=== PATIENT | female | born 1985 | race Caucasian/White ===

== ENCOUNTER 2017-02-03 05:46 | Emergency (ER) | payer SELFPAY ==
[2017-02-03 05:50] VITALS: BP 116/81; BMI 24.1
--- NOTE | 2017-02-03 06:28 | DR.URIAD ---
HPI - Time Seen Time seen: 06:30 - PCP Primary Care Physician: van - HPI Comment HPI Comment: COUGH IS PRODUCTIVE AND BODY ACHES STATED TODAY. PATIENT IS CONGESTED AND HER HEAD HURTS. SHE IS WEAK AND DRAIN OF ENERGY. HER CONDITION IS GETTING WORSE. - Complaint Chief Complaint Doctors Comments: FEVER, COUGH, CONGESTION BODY ACHES TIMES 3 DAYS. Chief Complaint:: COUGH SINCE THURSDAY, BODY ACHES, HEADACHE - Reviewed Nurses Notes Reviewed: Yes - Source History Provided: Patient - Mode of Arrival Mode of Arrival: Ambulatory - Timing Onset of Chief Complaint: 02/01/17 - Context Recent Treated Infections: None History of Respiratory: None - Quality Quality of Cough: Productive, Yellow Rhinorrhea: None Shortness of Breath: Mild - Associated Signs and Symptoms Other Signs and Symptoms: Cough, Fever, Myalgias, URI PMH - PMH Past Medical History: Yes Past Medical History: Anxiety, Hypertension, Seizures Past Surgical History: Yes Surgical History: Appendectomy, 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, 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, 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 negative: Eye Pain, Discharge ENTM: Nose Discharge, Nose Congestion. negative: Ear Pain, Throat Pain Respiratoy: Productive Cough. negative: Short of Breath, Wheezing, Hemoptysis Cardiovascular: No Symptoms Reported, Chest Pain Gastrointestinal/Abdominal: Nausea. negative: Abdominal Pain Genitourinary: No Symptoms Reported. negative: Dysuria, Frequency, Hematuria Neurological: Headache, Weakness, Dizziness Musculoskeletal: Muscle Pain Integumentary: No Symptoms Reported Hematologic/Lymphatic: No Symptoms Reported Endocrine: No Symptoms Reported Psychiatric: No Symptoms Reported All Other Systems: Reviewed and Negative PE - Vital Signs Vitals: Temperature 100.3 F Pulse Rate 130 Respiratory Rate 18 Blood Pressure [Left Arm] 137/94 Blood Pressure [Right Arm] 120/82 Blood Pressure 116/81 O2 Sat by Pulse Oximetry 97 - General Limitations: No Limitations General Appearance: Alert - Head Head Exam: Normal Inspection - Eyes Eye exam: Normal Appearance - ENT ENT Exam: Normal External Ear Exam External Ear Exam: Normal External Inspection TM/Canal Exam: Bilateral Bulging Mouth Exam: Normal Inspection Throat Exam: Tonsillar Erythema. negative: Tonsillomegaly, Tonsillar Exudate - Neck Neck Exam: Trachea Midline. negative: Tenderness, Meningismus, Lymphadenopathy - Chest Chest Inspection: Symmetric Chest Wall Rise - Respiratory Respiratory Exam: Normal Lung Sounds Bilat Respiratory Exam: Bilateral Clear to Auscultation - Cardiovascular Cardiovascular Exam: Regular Rate, Normal Rhythm, Normal Heart Sounds - Abdominal Exam Abdominal Exam: Normal Bowel Sounds, Soft. negative: Tenderness - Extremeties Extremities Exam: Normal Inspection - Back Back Exam: Normal Inspection - Neurologic Neurological Exam: Alert, Oriented X3 - Psychiatric Psychiatric Exam: Anxious - Skin Skin Exam: Dry MDM - Differential Diagnosis Differential Diagnosis: Influenza A, Otitis media, Streptococcal pharyngitis, Viral pharyngitis, Pneumonia, Sinsusitis, URI Course - Treatment Treatment: SEE REPORT - Education/Counseling Education/Counseling: Patient, Education Educated On: Treatment, Diagnosis, Needs for Follow Up ROR - Labs Reviewed Laboratory: Influenza A (H1N1) PCR Not detected (NOT DETECT) 02/03/17 05:52 Influenza Type A (PCR) Positive (NEGATIVE) A 02/03/17 05:52 Influenza Type B (PCR) Negative (NEGATIVE) 02/03/17 05:52 - XRAY XRAY Interpreted by: Radiologist XRAY Findings: REPORT DISCUSS WITH PATIENT. - Diagnosis Discharge Problem: Influenza, Bronchitis, Myalgia - Discharge Plan Condition: Stable Prescriptions: Acetaminophen/Codeine Tab [TYLENOL w/CODEINE #3 (300 MG/30 MG) *] 1 tab PO Q4- 6H PRN #15 tab PRN Reason: Pain Amoxicillin [Amoxil 875 mg] 875 mg PO BID #20 tab Oseltamivir Phosphate [Tamiflu] 75 mg PO BID #10 cap - Follow ups/Referrals Follow ups/Referrals: NFD,None [Primary Care Provider] - 3 days ZI HSIEH [STAFF PHYSICIAN] - 3 days - Instructions Instructions: Influenza, Adult, Influenza Tests, Acute Bronchitis Additional Instructions: RETURN TO ED IF WORSE.
[2017-02-03] MEDS ORDERED: TORADOL 60 MG VIAL IM ONE (06:29)
[2017-02-03] MEDS ORDERED: TORADOL 60 MG VIAL ONE (06:34)
--- NOTE | 2017-02-03 06:44 | RAD ---
HISTORY: Chest pain Study: Chest one view Comparison: December 02, 2015 Findings: The trachea is midline. The cardiac silhouette is unremarkable. The lungs are clear without focal infiltrate or effusion. The bony thorax is unremarkable. IMPRESSION: 1. No acute cardiopulmonary disease. Reported By:
== END 2017-02-03 08:00 | disposition home or self-care (01) ==
LOC: ER 05:46
DX: J11.1 Influenza due to unidentified influenza virus with other respiratory manifestations (principal); J40 Bronchitis, not specified as acute or chronic; M79.1 Myalgia
CPT/HCPCS: 71010; 87502; 87503; 96372; 99282; J1885

== ENCOUNTER 2017-07-11 10:17 | Emergency (ER) | payer SELFPAY ==
[2017-07-11 10:22] VITALS: BP 113/90; BMI 23.3
[2017-07-11 10:50] LABS: BILIRUBIN,URINE NEGATIVE (NEGATIVE); BLOOD/HEMOGLOBIN,URINE 4+ (NEGATIVE); GLUCOSE, URINE NEGATIVE (NEGATIVE); KETONES,URINE NEGATIVE (NEGATIVE); LEUKOCYTE ESTERASE ,URINE 1+ (NEGATIVE); NITRITES,URINE NEGATIVE (NEGATIVE); PROTEIN,URINE 1+ (NEGATIVE); UROBILINOGEN,URINE NORMAL (NORMAL)
[2017-07-11] MEDS ORDERED: TORADOL 30 MG VIAL IVP ONE (10:50)
[2017-07-11] MEDS ORDERED: TORADOL 30 MG VIAL ONE (10:51)
--- NOTE | 2017-07-11 10:52 | DR.GENAD ---
HPI - PCP Primary Care Physician: NFD - Complaint/Symptoms Chief Complaint Doctors Comments: Patient admits to right flank pain radiating to right inguinal area. Prior history of cholelithiasis. Chief Complaint:: PT C/O RT FLANK PAIN WITH NAUSEA. PT STATES SHE HAS BEEN HAVING DYSURIA. 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 - Family History History of Family Medical Conditions: Yes Family Medical History: [place], Hypertension - Social History Does any household member use tobacco: No Alcohol Use: None Do you use any recreational Drugs:: No Lives With: Family Lives Where: Home - infectious screening In the last 2 months have you had wt loss of >10#?: NO Have you had fever, night sweats or hemotysis?: No Have you traveled outside the country in the last 6 months?: No Isolation: Standard ROS - Review of Systems Eyes: No Symptoms Reported ENTM: No Symptoms Reported Respiratoy: No Symptoms Reported Cardiovascular: No Symptoms Reported Gastrointestinal/Abdominal: No Symptoms Reported Genitourinary: No Symptoms Reported Neurological: No Symptoms Reported Musculoskeletal: Back (right flank pain) Integumentary: No Symptoms Reported Hematologic/Lymphatic: No Symptoms Reported Endocrine: No Symptoms Reported Psychiatric: No Symptoms Reported All Other Systems: Reviewed and Negative PE - Vital Signs Vitals: Temperature 97.7 F Pulse Rate 124 Respiratory Rate 18 Blood Pressure [Left Arm] 137/94 Blood Pressure [Right Arm] 120/82 Blood Pressure 113/90 O2 Sat by Pulse Oximetry 97 - General General Appearance: Alert, In No Apparent Distress - Head Head Exam: Normal Inspection, Atraumatic - Eyes Eye exam: Normal Appearance, PERRL, EOMI - ENT ENT Exam: Normal Exam External Ear Exam: Normal External Inspection TM/Canal Exam: Bilateral Normal Nose Exam: Normal Nose Exam Mouth Exam: Normal Inspection MDM - Differential Diagnosis Differential Diagnosis: cholelithiasis, ovarian cyst Course - Reevaluation 1st: Improved ROR - Labs Reviewed Result Diagrams: 07/11/17 11:00 07/11/17 11:00 Laboratory: WBC 13.0 X10^3/uL (3.6-10.0) H 07/11/17 11:00 RBC 4.75 X10^6/uL (3.5-5.4) 07/11/17 11:00 Hgb 13.0 g/dL (12.0-16.0) 07/11/17 11:00 Hct 38.4 % (36.0-47.0) 07/11/17 11:00 MCV 81.0 fL (80.0-100.0) 07/11/17 11:00 MCH 27.4 pg (27.0-34.0) 07/11/17 11:00 MCHC 33.8 g/dL (33.0-35.0) 07/11/17 11:00 RDW 16.1 % (11.6-16.5) 07/11/17 11:00 Plt Count 431 X10^3/uL (150.0-450.0) 07/11/17 11:00 Plt Count Comment Adequate (ADEQUATE) 07/11/17 11:00 MPV 8.8 fL (7.4-11.0) 07/11/17 11:00 Neut % 77.6 % (42.0-75.0) H 07/11/17 11:00 Lymph % 16.0 % (21.0-51.0) L 07/11/17 11:00 Grimes % 4.4 % (0.0-13.0) 07/11/17 11:00 Eos % 0.6 % (0.9-2.9) L 07/11/17 11:00 Baso % 1.4 % (0.2-1.0) H 07/11/17 11:00 Neut # 10.1 x10^3/uL (2.2-4.8) H 07/11/17 11:00 Lymph # 2.1 X10^3/uL (1.3-2.9) 07/11/17 11:00 Grimes # 0.6 x10^3/uL (0.3-0.8) 07/11/17 11:00 Eos # 0.1 x10^3/uL (0.0-0.2) 07/11/17 11:00 Baso # 0.2 X10^3/uL (0.0-0.1) H 07/11/17 11:00 Absolute Nucleated RBC 0.0 /100WBC 07/11/17 11:00 Total Counted 100 07/11/17 11:00 Neutrophils % (Manual) 78 % (39-76) H 07/11/17 11:00 Lymphocytes % (Manual) 20 % (13-43) 07/11/17 11:00 Monocytes % (Manual) 1 % (4-9) L 07/11/17 11:00 Plt Morphology Comment Normal (NORMAL) 07/11/17 11:00 RBC Morphology Normal (NORMAL) 07/11/17 11:00 Sodium 140 mmol/L (136-145) 07/11/17 11:00 Corrected Sodium 140 mmol/L (136-145) 07/11/17 11:00 Potassium 3.9 mmol/L (3.5-5.1) 07/11/17 11:00 Chloride 107 mmol/L (98-107) 07/11/17 11:00 Carbon Dioxide 20.9 mmol/L (21-32) L 07/11/17 11:00 BUN 16 mg/dL (7-18) 07/11/17 11:00 Creatinine 0.98 mg/dL (0.55-1.02) 07/11/17 11:00 Est GFR (MDRD) Af Amer > 60 (>60) 07/11/17 11:00 Est GFR (MDRD) Non-Af > 60 (>60) 07/11/17 11:00 Glucose 120 mg/dL (65-99) H 07/11/17 11:00 Calcium 9.0 mg/dL (8.5-10.1) 07/11/17 11:00 Specimen Type Clean catch urine 07/11/17 10:40 Urine Color Yellow (YELLOW) 07/11/17 10:40 Urine Appearance Slightly hazy (CLEAR) 07/11/17 10:40 Urine pH 6.0 (5.0 - 8.0) 07/11/17 10:40 Ur Specific Newell 1.015 (1.000-1.030) 07/11/17 10:40 Urine Protein 1+ (NEGATIVE) 07/11/17 10:40 Urine Glucose (UA) Negative (NEGATIVE) 07/11/17 10:40 Urine Ketones Negative (NEGATIVE) 07/11/17 10:40 Urine Occult Blood 4+ (NEGATIVE) 07/11/17 10:40 Urine Nitrite Negative (NEGATIVE) 07/11/17 10:40 Urine Bilirubin Negative (NEGATIVE) 07/11/17 10:40 Urine Urobilinogen Normal (NORMAL) 07/11/17 10:40 Ur Leukocyte Esterase 1+ (NEGATIVE) 07/11/17 10:40 Urine RBC 1 - 5 /HPF (NEGATIVE) 07/11/17 10:40 Urine WBC Rare /HPF (NEGATIVE) 07/11/17 10:40 Ur Squamous Epith Cells Moderate /HPF (NEGATIVE) 07/11/17 10:40 Urine Bacteria Negative /HPF (NEGATIVE) 07/11/17 10:40 Ur Culture Indicated? No/not indicated 07/11/17 10:40 - XRAY XRAY Interpreted by: Radiologist (CT Abd/pelv: No evidence of acute abdominal or pelvic abnormality. The gallbladder surgically absent. Surgical clips are noted in the gallbladder fosse. The liver spleen,pancreas, kidneys and adrenal glands are normal in appearance. No significian mesenteric lymphadenopathy or inflammatory strainding is appreciated. The stomach is normal in appearance. The small bowel is normal in appearance, withoutevidence of bowel wall thickening or small bowel obstruction. The termial ileum and cecum are normal. The appendix is surgically abswent. The asending, transverse and descending colon are within normal limits. The sigmoid colon and the rectum are within normal limits. The urinary bladder is normal. No abnormal fluid collections are identified in the pelivs. Impression: No evidence of acute abdominal or pelvic abnormality.) - Diagnosis Discharge Problem: Flank pain, acute - Discharge Plan Condition: Stable - Follow ups/Referrals Follow ups/Referrals: NFD,None [Primary Care Provider] - 3 days - Instructions
[2017-07-11] MEDS ORDERED: NS 1000 ML 1,000 ML ONE (10:54)
[2017-07-11] MEDS ORDERED: NS 1000 ML 1,000 ML IV SCH (11:00)
[2017-07-11 11:01] LABS: APPEARANCE,URINE SLIGHTLY HAZY (CLEAR); COLOR,URINE YELLOW (YELLOW)
[2017-07-11 11:02] LABS: BACTERIA,URINE NEGATIVE /HPF (NEGATIVE); SQUAMOUS EPITHELIAL CELL,UR MODERATE /HPF (NEGATIVE)
[2017-07-11 11:17] LABS: BASOPHILS # (AUTO) 0.2 X10^3/uL (0.0-0.1); BASOPHILS % (AUTO) 1.4 % (0.2-1.0); EOSINOPHILS # (AUTO) 0.1 x10^3/uL (0.0-0.2); EOSINOPHILS % (AUTO) 0.6 % (0.9-2.9); HEMATOCRIT 38.4 % (36.0-47.0); LYMPHOCYTES # (AUTO) 2.1 X10^3/uL (1.3-2.9); MEAN CORPUSCULAR HEMOGLOBIN 27.4 pg (27.0-34.0); MEAN CORPUSCULAR HGB CONC 33.8 g/dL (33.0-35.0); MEAN PLATELET VOLUME 8.8 fL (7.4-11.0); MONOCYTES # (AUTO) 0.6 x10^3/uL (0.3-0.8); MONOCYTES % (AUTO) 4.4 % (0.0-13.0); NEUTROPHILS # (AUTO) 10.1 x10^3/uL (2.2-4.8); NEUTROPHILS % (AUTO) 77.6 % (42.0-75.0); PLATELET COUNT 431 X10^3/uL (150.0-450.0); RED BLOOD COUNT 4.75 X10^6/uL (3.5-5.4); RED CELL DISTRIBUTION WIDTH 16.1 % (11.6-16.5)
[2017-07-11 11:23] LABS: BLOOD UREA NITROGEN 16 mg/dL (7-18); CARBON DIOXIDE 20.9 mmol/L (21-32); CHLORIDE 107 mmol/L (98-107); COR NA(FOR HYPERGLY) 140 mmol/L (136-145); CREATININE 0.98 mg/dL (0.55-1.02); SODIUM 140 mmol/L (136-145); eGFR BLACK RACES > 60 (>60); eGFR NON BLACK RACES > 60 (>60)
[2017-07-11 11:30] LABS: PLATELET MORPHOLOGY COMMENT NORMAL (NORMAL)
[2017-07-11] MEDS ORDERED: MORPHINE SULFATE INJ 4 MG IVP ONE (11:32)
[2017-07-11] MEDS ORDERED: ZOFRAN INJ 4 MG VIAL IVP ONE (11:32)
[2017-07-11] MEDS ORDERED: ZOFRAN INJ 4 MG VIAL ONE (11:33)
[2017-07-11] MEDS ORDERED: MORPHINE SULFATE INJ 2 MG INJ ONE ×2 (11:34→11:45)
--- NOTE | 2017-07-11 12:08 | CT ---
STUDY: CT ABDOMEN AND PELVIS WITHOUT IV AND ORAL CONTRAST HISTORY: Right flank pain. Nausea. Comparison: CT abdomen pelvis from November 18, 2014 Technique: Multiple axial images of the abdomen and pelvis were obtained from the lung bases to the pubic symphysis without the administration of IV contrast. Findings: The visualized portions of the lung bases are unremarkable. CT abdomen: The gallbladder surgically absent. Surgical clips are noted in the gallbladder fossa . Th e liver, spleen, pancreas, kidneys, and adrenal glands are normal in appearance. No significant mesen teric lymphadenopathy or inflammatory stranding is appreciated. The stomach is normal in appearance. The small bowel is normal in appearance, without evidence of bow el wall thickening or small bowel obstruction. The terminal ileum and cecum are normal. The appendix is surgically absent. The ascending, transverse and descending colon are within normal limits. CT pelvis: The sigmoid colon and the rectum are within normal limits. The urinary bladder is normal. No abnormal fluid collections are identified in the pelvis. There is no evidence of acute osseous abnormality. IMPRESSION: 1. No evidence of acute abdominal or pelvic abnormality. Reported By:
== END 2017-07-11 12:42 | disposition home or self-care (01) ==
LOC: ER 10:27
DX: R10.84 Generalized abdominal pain (principal)
CPT/HCPCS: 36415; 74176; 80048; 81001; 85025; 96365; 96367; 96374; 96375; 99283; A4222; J1885; J2270; J2405

== ENCOUNTER 2018-01-13 10:53 | Emergency (ER) | payer OTHER ==
[2018-01-13 10:58] VITALS: BP 163/104; BMI 24.0
[2018-01-13] MEDS ORDERED: DECADRON INJ IM ONE (11:48)
[2018-01-13] MEDS ORDERED: TORADOL 60 MG VIAL IM ONE (11:48)
--- NOTE | 2018-01-13 11:48 | DR.TOOTHHP ---
HPI - Time Seen Time seen: 11:45 - Primary Care Physician Primary Care Physician: KI - HPI Comment HPI Comment: WORSE THIS AM. - Complaints Chief Complaint Doctors Comments: POST TOOTH EXTRACTION. GUM SWOLLEN AND HURTING. LOW GRADE FEVER. Chief Complaint:: PT. STATES SHE HAD A TOOTH PULLED YESTERDAY AT THE [facility] AND THEY BROKE HER TOOTH OFF THAT WAS NEXT THE TOOTH THAT WAS PULLED. PT. C/O SEVERE PAIN TO AREA. TOOTH IS ON THE LOWER LEFT, BOTTOM SIDE. 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, 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, 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 - Family History History of Family Medical Conditions: Yes Family Medical History: [place], Hypertension - Social History Does patient currently use any type of tobacco product: No Have you used tobacco products in the last 12 months: No Type of Tobacco Use: None Does any household member use tobacco: No Alcohol Use: None Do you use any recreational Drugs:: No Lives With: Family Lives Where: Home - infectious screening In the last 2 months have you had wt loss of >10#?: NO Have you had fever, night sweats or hemotysis?: No Have you traveled outside the country in the last 6 months?: No Isolation: Standard ROS - Review of Systems Constitutional: Fever Eyes: No Symptoms Reported ENTM: Mouth Pain (GUM SWELLING AND PAIN.) Respiratoy: No Symptoms Reported Cardiovascular: No Symptoms Reported Gastrointestinal/Abdominal: No Symptoms Reported Genitourinary: No Symptoms Reported Neurological: No Symptoms Reported Musculoskeletal: No Symptoms Reported Integumentary: No Symptoms Reported Hematologic/Lymphatic: No Symptoms Reported Endocrine: No Symptoms Reported All Other Systems: Reviewed and Negative PE - Vital Signs Vitals: Temperature 99.5 F Pulse Rate 143 Respiratory Rate 22 Blood Pressure [Left Arm] 137/94 Blood Pressure [Right Arm] 120/82 Blood Pressure 163/104 O2 Sat by Pulse Oximetry 98 - General Limitations: No Limitations General Appearance: Alert - Head Head Exam: Normal Inspection - Eyes Eye exam: Normal Appearance - ENT ENT Exam: Normal External Ear Exam External Ear Exam: Normal External Inspection TM/Canal Exam: Bilateral Normal Nose Exam: Normal Nose Exam Mouth Exam: negative: Trismus Teeth Exam: Dental Caries, Dental Tenderness # (LEFT LOWER 1ST MOLAR WITH SWOLLEN TENDER GUM.) - Neck Neck Exam: Trachea Midline - Chest Chest Inspection: Symmetric Chest Wall Rise - Respiratory Respiratory Exam: Normal Lung Sounds Bilat Respiratory Exam: Bilateral Clear to Auscultation - Cardiovascular Cardiovascular Exam: Regular Rate, Normal Rhythm, Normal Heart Sounds - Abdominal Exam Abdominal Exam: Normal Inspection - Extremities Extremities Exam: Normal Inspection - Back Back Exam: Normal Inspection - Neurologic Neurological Exam: Alert, Oriented X3 - Psychiatric Psychiatric Exam: Normal Affect, Normal Mood - Skin Skin Exam: Erythema MDM - Differential diagnosis Differential Diagnosis: Other (DENTAL P[AIN, GINGIVITIS) Course - Treatment Treatment: SEE ORDERS. - Education/Counseling Education/Counseling: Patient, Education Educated On: Treatment, Diagnosis, Needs for Follow Up - Diagnosis Discharge Problem: Toothache, Gingivitis - Discharge Plan Disposition: 01 HOME, SELF-CARE Condition: Stable Prescriptions: Amoxicillin [Amoxil 875 mg] 875 mg PO Q12H #20 tab Ibuprofen [MOTRIN TAB 800 MG *] 800 mg PO Q8H PRN #30 tab PRN Reason: Pain/Inflammation Prednisone [Prednisone Tab 10 mg] 10 mg PO QAM #10 tab - Follow ups/Referrals Follow ups/Referrals: NFD,None [Primary Care Provider] - 1 day - Instructions Instructions: Gingivitis, [id number], Gingivitis Additional Instructions: RETURN TO ED IF WORSE. SEE DENTIST THAT DID YOUR EXTRACYION TODAY OR SOON POSSIBLE.
[2018-01-13] MEDS ORDERED: DECADRON JET NEB (RESP USE) NEB ONE (11:52)
[2018-01-13] MEDS ORDERED: TORADOL 60 MG VIAL ONE (11:52)
== END 2018-01-13 12:15 | disposition home or self-care (01) ==
LOC: ER 11:32
DX: K05.10 Chronic gingivitis, plaque induced (principal); K08.89 Other specified disorders of teeth and supporting structures
CPT/HCPCS: 96372; 99282; J1885

== ENCOUNTER 2018-02-05 08:38 | Emergency (ER) | payer OTHER ==
[2018-02-05 08:44] VITALS: BP 125/95; BMI 24.1
[2018-02-05] MEDS ORDERED: ROBITUSSIN AC PO ONE (09:07)
[2018-02-05] MEDS ORDERED: ROBITUSSIN AC ONE (09:14)
--- NOTE | 2018-02-05 09:20 | DR.GENAD ---
HPI - PCP Primary Care Physician: nfd - Complaint/Symptoms Chief Complaint Doctors Comments: As noted in nurses' notes + chest and nasal congestion, coughing, sneezing and runny nose. Chief Complaint:: Patient c/o generalized pain with c/c/c and sore throat since Thursday. 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 - Family History History of Family Medical Conditions: Yes Family Medical History: [place], Hypertension - Social History Does patient currently use any type of tobacco product: No Have you used tobacco products in the last 12 months: No Type of Tobacco Use: None Does any household member use tobacco: No Alcohol Use: None Do you use any recreational Drugs:: No Lives With: Family Lives Where: Home - infectious screening In the last 2 months have you had wt loss of >10#?: NO Have you had fever, night sweats or hemotysis?: No Have you traveled outside the country in the last 6 months?: No Isolation: Standard ROS - Review of Systems Constitutional: Fever Eyes: No Symptoms Reported ENTM: Ear Discharge, Nose Discharge, Nose Congestion Respiratoy: Productive Cough, Non-Productive Cough Cardiovascular: No Symptoms Reported Gastrointestinal/Abdominal: No Symptoms Reported Genitourinary: No Symptoms Reported Neurological: No Symptoms Reported Musculoskeletal: No Symptoms Reported Integumentary: No Symptoms Reported Hematologic/Lymphatic: No Symptoms Reported Endocrine: No Symptoms Reported Psychiatric: No Symptoms Reported All Other Systems: Reviewed and Negative PE - Vital Signs Vitals: Temperature 97.8 F Pulse Rate 130 Respiratory Rate 18 Blood Pressure [Left Arm] 137/94 Blood Pressure [Right Arm] 120/82 Blood Pressure 125/95 O2 Sat by Pulse Oximetry 100 - General Limitations: No Limitations General Appearance: Alert, In No Apparent Distress - Head Head Exam: Normal Inspection - Eyes Eye exam: Normal Appearance - ENT ENT Exam: Normal Exam - Chest Chest Inspection: Normal Inspection - Respiratory Respiratory Exam: Normal Lung Sounds Bilat - Cardiovascular Cardiovascular Exam: Regular Rate, Normal Rhythm, +S1, +S2 - Abdominal Exam Abdominal Exam: Normal Inspection, Normal Bowel Sounds, Soft - Extremities Extremities Exam: Normal Inspection - Back Back Exam: Normal Inspection - Neurologic Neurological Exam: Alert, Oriented X3 - Psychiatric Psychiatric Exam: Normal Affect, Normal Mood - Skin Skin Exam: Warm, Dry, Intact, Normal Color ROR - XRAY XRAY Interpreted by: Self (CXR: NAD noted) - Diagnosis Discharge Problem: URI (upper respiratory infection) - Discharge Plan Disposition: HOME, SELF-CARE Condition: Stable - Follow ups/Referrals Follow ups/Referrals: NFD,None [Primary Care Provider] - 3 days - Instructions Instructions: Upper Respiratory Infection, Adult, [id number]
--- NOTE | 2018-02-05 09:42 | RAD ---
HISTORY: Cough, fever Study: Chest PA and lateral Comparison: 02/03/2017 Findings: The heart is within normal limits in size. The milton are normal. The lungs are well inflated and free of acute alveolar infiltrates. No pleural effusions are identified. The bony thorax is unremarkable. IMPRESSION: No significant abnormality identified Reported By:
[2018-02-05] MEDS ORDERED: ALLEGRA PO SCH (10:00)
== END 2018-02-05 10:12 | disposition home or self-care (01) ==
LOC: ER 08:47
DX: J06.9 Acute upper respiratory infection, unspecified (principal)
CPT/HCPCS: 71046; 99282

== ENCOUNTER 2018-02-17 13:23 | Emergency (ER) | payer OTHER ==
[2018-02-17 13:30] VITALS: BP 120/75; BMI 25.0
[2018-02-17 13:49] LABS: BILIRUBIN,URINE NEGATIVE (NEGATIVE); BLOOD/HEMOGLOBIN,URINE 4+ (NEGATIVE); GLUCOSE, URINE NEGATIVE (NEGATIVE); KETONES,URINE NEGATIVE (NEGATIVE); LEUKOCYTE ESTERASE ,URINE NEGATIVE (NEGATIVE); NITRITES,URINE NEGATIVE (NEGATIVE); PH,URINE 6.5 (5.0 - 8.0); PROTEIN,URINE NEGATIVE (NEGATIVE); UROBILINOGEN,URINE NORMAL (NORMAL)
[2018-02-17 13:55] LABS: APPEARANCE,URINE CLEAR (CLEAR); COLOR,URINE YELLOW (YELLOW)
[2018-02-17 13:58] LABS: BACTERIA,URINE NEGATIVE /HPF (NEGATIVE); SQUAMOUS EPITHELIAL CELL,UR FEW /HPF (NEGATIVE)
--- NOTE | 2018-02-17 15:47 | ED.ABDFE ---
HPI - Time seen Time seen: 16:15 - PCP Primary Care Physician: HELGA - HPI Comment HPI Comment: NO FEVER, DYSURIA OR DIARRHEA. RT FLANK AND BACK PAIN ALSO. ABDOMINAL PAIN RLQ. - Complaint Chief Complaint Doctors Comments: ABDOMINAL PAIN WITH NAUSEA NOTED TODAY. Chief Complaint:: STMACH PAIN, NAUSEA - Nurses notes reviewed Nurses Notes Review: Yes - Source History Provided: Patient - Mode of arrival Mode of Arrival: Ambulatory - Timing Onset of Chief Complaint: 02/17/18 Came on: Suddenly - Duration Duration: Hours - Location Location: [facility] - Severity Severity: Moderate - Quality Quality: Sharp - Context Onset: Suddenly History of: None - Modifying Worsening Factors: Nothing Improving Factors: Nothing - Associated signs and symptoms Associated Signs and Symptoms: Nausea PMH - PMH Past Medical History: No Past Medical History: Anxiety, Hypertension, Seizures Past Surgical History: Yes Surgical History: Appendectomy, , 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 - Family History History of Family Medical Conditions: No Family Medical History: NM, Hypertension - Social History Does any household member use tobacco: No Alcohol Use: None Do you use any recreational Drugs:: No Lives With: Friend Lives Where: Home - infectious screening In the last 2 months have you had wt loss of >10#?: NO Have you had fever, night sweats or hemotysis?: No Have you traveled outside the country in the last 6 months?: No Isolation: Standard ROS - Review of Systems Constitutional: No Symptoms Reported Eyes: No Symptoms Reported ENTM: No Symptoms Reported Respiratoy: No Symptoms Reported Cardiovascular: No Symptoms Reported Gastrointestinal/Abdominal: Abdominal Pain, Nausea Genitourinary: No Symptoms Reported. negative: Dysuria, Frequency, Hematuria Neurological: No Symptoms Reported Musculoskeletal: Back Pain, Back Integumentary: No Symptoms Reported Hematologic/Lymphatic: No Symptoms Reported Endocrine: No Symptoms Reported All Other Systems: Reviewed and Negative PE - Vital Signs Vitals: Temperature 99.7 F Pulse Rate 122 Respiratory Rate 18 Blood Pressure [Left Arm] 137/94 Blood Pressure [Right Arm] 120/82 Blood Pressure 120/75 O2 Sat by Pulse Oximetry 99 - General Limitations: No Limitations General Appearance: Alert - Head Head Exam: Normal Inspection - Eyes Eye exam: Normal Appearance - ENT ENT Exam: Normal External Ear Exam - Neck Neck Exam: Normal Inspection - Chest Chest Inspection: Symmetric Chest Wall Rise - Respiratory Respiratory Exam: Normal Lung Sounds Bilat Respiratory Exam: Bilateral Clear to Auscultation - Cardiovascular Cardiovascular Exam: Regular Rate, Normal Rhythm, Normal Heart Sounds - Abdominal Exam Abdominal Exam: Normal Bowel Sounds, Soft, Tenderness Abdominal Tenderness: RLQ - Rectal Rectal Exam: Deferred - Back Back Exam: (R) CVA Tenderness - Extremeties Extremities Exam: Normal Inspection - External Exam: Female: Deferred : Speculum Exam (Female): Deferred : Bimanual Exam (female): Deferred - Neurologic Neurological Exam: Alert, Oriented X3 - Psychiatric Psychiatric Exam: Normal Affect, Normal Mood - Skin Skin Exam: Normal Color MDM - Differential Diagnosis Differential Diagnosis- Considerations may include:: Appendicitis, Bowel Obstruction, Cholelethiasis, Diverticular disease, Ovarian cyst/torsion, Pancreatitis, PID, Urinary tract infection, Urolithiasis Course - Treatment Treatment: SEE ORDERS. - Education/Counseling Education/Counseling: Patient, Family, Education Educated On: Diagnosis, Needs for Follow Up ROR - Labs Reviewed Laboratory Results Reviewed?: Yes Result Diagrams: 02/17/18 16:56 02/17/18 16:56 Laboratory: WBC 9.5 X10^3/uL (3.6-10.0) 02/17/18 16:56 RBC 5.15 X10^6/uL (3.5-5.4) 02/17/18 16:56 Hgb 10.0 g/dL (12.0-16.0) L 02/17/18 16:56 Hct 33.4 % (36.0-47.0) L 02/17/18 16:56 MCV 64.9 fL (80.0-100.0) L 02/17/18 16:56 MCH 19.5 pg (27.0-34.0) L 02/17/18 16:56 MCHC 30.0 g/dL (33.0-35.0) L 02/17/18 16:56 RDW 17.9 % (11.6-16.5) H 02/17/18 16:56 Plt Count 513 X10^3/uL (150.0-450.0) H 02/17/18 16:56 Plt Count Comment Increased (ADEQUATE) A 02/17/18 16:56 MPV 9.8 fL (7.4-11.0) 02/17/18 16:56 Neut % (Auto) 60.2 % (42.0-75.0) 02/17/18 16:56 Lymph % (Auto) 31.2 % (21.0-51.0) 02/17/18 16:56 [place] % (Auto) 5.9 % (0.0-13.0) 02/17/18 16:56 Eos % (Auto) 1.3 % (0.9-2.9) 02/17/18 16:56 Baso % (Auto) 1.4 % (0.2-1.0) H 02/17/18 16:56 Neut # (Auto) 5.7 x10^3/uL (2.2-4.8) H 02/17/18 16:56 Lymph # (Auto) 3.0 X10^3/uL (1.3-2.9) H 02/17/18 16:56 [place] # (Auto) 0.6 x10^3/uL (0.3-0.8) 02/17/18 16:56 Eos # (Auto) 0.1 x10^3/uL (0.0-0.2) 02/17/18 16:56 Baso # (Auto) 0.1 X10^3/uL (0.0-0.1) 02/17/18 16:56 Absolute Nucleated RBC 0.0 /100WBC 02/17/18 16:56 Plt Morphology Comment Normal (NORMAL) 02/17/18 16:56 RBC Morphology Abnormal (NORMAL) A 02/17/18 16:56 Hypochromasia 3+ A 02/17/18 16:56 Anisocytosis Slight A 02/17/18 16:56 Microcytosis 2+ A 02/17/18 16:56 Sodium 139 mmol/L (136-145) 02/17/18 16:56 Corrected Sodium TNP 02/17/18 16:56 Potassium 4.1 mmol/L (3.5-5.1) 02/17/18 16:56 Chloride 104 mmol/L (98-107) 02/17/18 16:56 Carbon Dioxide 24.5 mmol/L (21-32) 02/17/18 16:56 BUN 12 mg/dL (7-18) 02/17/18 16:56 Creatinine 0.82 mg/dL (0.55-1.02) 02/17/18 16:56 Est GFR (MDRD) Af Amer > 60 (>60) 02/17/18 16:56 Est GFR (MDRD) Non-Af > 60 (>60) 02/17/18 16:56 Glucose 88 mg/dL (65-99) 02/17/18 16:56 Calcium 8.7 mg/dL (8.5-10.1) 02/17/18 16:56 Corrected Calcium TNP 02/17/18 16:56 Total Bilirubin 0.20 mg/dL (0.2-1.0) 02/17/18 16:56 AST 39 Units/L (15-37) H 02/17/18 16:56 ALT 40 Units/L (12-78) 02/17/18 16:56 Alkaline Phosphatase 86 Units/L (46-116) 02/17/18 16:56 Total Protein 8.3 g/dL (6.4-8.2) H 02/17/18 16:56 Albumin 3.8 g/dL (3.4-5.0) 02/17/18 16:56 Globulin 4.5 g/dL (2.5-4.5) 02/17/18 16:56 Albumin/Globulin Ratio 0.8 Ratio (1.1-2.1) L 02/17/18 16:56 Amylase 64 Units/L (25-115) 02/17/18 16:56 Lipase 169 Units/L (73-393) 02/17/18 16:56 HCG, Qual Negative <10 mIU/mL 02/17/18 16:56 Specimen Type Clean catch urine 02/17/18 13:42 Urine Color Yellow (YELLOW) 02/17/18 13:42 Urine Appearance Clear (CLEAR) 02/17/18 13:42 Urine pH 6.5 (5.0 - 8.0) 02/17/18 13:42 Ur Specific [place] 1.015 (1.000-1.030) 02/17/18 13:42 Urine Protein Negative (NEGATIVE) 02/17/18 13:42 Urine Glucose (UA) Negative (NEGATIVE) 02/17/18 13:42 Urine Ketones Negative (NEGATIVE) 02/17/18 13:42 Urine Occult Blood 4+ (NEGATIVE) 02/17/18 13:42 Urine Nitrite Negative (NEGATIVE) 02/17/18 13:42 Urine Bilirubin Negative (NEGATIVE) 02/17/18 13:42 Urine Urobilinogen Normal (NORMAL) 02/17/18 13:42 Ur Leukocyte Esterase Negative (NEGATIVE) 02/17/18 13:42 Urine RBC 3-5 /HPF (NONE SEEN) 02/17/18 13:42 Urine WBC 0-2 /HPF (NONE SEEN) 02/17/18 13:42 Ur Squamous Epith Cells Few /HPF (NEGATIVE) 02/17/18 13:42 Urine Bacteria Negative /HPF (NEGATIVE) 02/17/18 13:42 Ur Culture Indicated? No/not indicated 02/17/18 13:42 - XRAY XRAY Interpreted by: Radiologist XRAY Findings: REPORT DISCUSS WITH PATIENT. - Diagnosis Discharge Problem: Abdominal pain Qualifiers: Abdominal location: right lower quadrant Qualified Code(s): R10.31 - Right lower quadrant pain Back pain Qualifiers: Back pain location: low back pain Chronicity: acute Back pain laterality: bilateral Sciatica presence: without sciatica Qualified Code(s): M54.5 - Low back pain Ovarian cyst Qualifiers: Laterality: right Qualified Code(s): N83.201 - Unspecified ovarian cyst, right side - Discharge Plan Disposition: 01 HOME, SELF-CARE Condition: Stable Prescriptions: Ketorolac Tromethamine [Toradol Tab] 10 mg PO Q8H PRN #15 tab PRN Reason: Pain - Follow ups/Referrals Follow ups/Referrals: NFD,None [Primary Care Provider] - 3 days - Instructions Instructions: Abdominal Pain, Adult, [id number], Back Pain, Adult, Easy-to- Read Additional Instructions: RETURN TO ED IF WORSE. SEE ACCOUNT EXECUTIVE TRAINEE IN AM.
[2018-02-17] MEDS ORDERED: TORADOL 60 MG VIAL IM ONE (16:24)
[2018-02-17] MEDS ORDERED: ZOFRAN INJ 4 MG VIAL IM ONE (16:24)
[2018-02-17] MEDS ORDERED: TORADOL 60 MG VIAL ONE (16:28)
[2018-02-17 17:11] LABS: SERUM PREGNANCY TEST, QUAL NEGATIVE <10 mIU/mL
--- NOTE | 2018-02-17 17:57 | CT ---
CT OF THE ABDOMEN AND PELVIS WITHOUT CONTRAST HISTORY: Right flank pain Comparison: 11/18/2014, 07/11/2017 Technique: Multiple axial images of the abdomen and pelvis were obtained from the lung bases to the pubic symphy sis without the administration of IV contrast. Dose reduction techniques including Automated Exposur e Control (AEC) and adjustment of mA and kV were utlized. Findings: The heart is normal in size. There is no pericardial effusion. Lung bases are clear without focal con solidation, pleural effusion or pneumothorax. The sensitivity for focal lesion detection within the solid abdominal viscera is diminished without t he use of IV contrast. Liver and spleen are normal in size, and contour. No focal lesions. No ductal dilitation. Gallbladder absent. The pancreas is unremarkable. Adrenal glands are normal. Kidneys are normal in contour witho ut hydronephrosis or nephrolithiasis. No bowel obstruction or inflammation. No abnormal appearing mesenteric or retroperitoneal lymph node s. No free fluid or fluid collections. The bladder is normal in appearance. Uterus is present. 3 cm right ovarian cyst, previously 2.3 cm. N o free fluid or abnormal pelvic lymph nodes. No aggressive osseous lesions. IMPRESSION: 1. No source of patient's right flank pain is identified on this examination. 2. Enlarging right ovarian cyst. This could be evaluated by ultrasound on a nonemergent outpatient [facility]. Reported By:
[2018-02-17] MEDS ORDERED: DEMEROL INJ IM ONE (18:18)
[2018-02-17] MEDS ORDERED: DEMEROL INJ ONE (18:21)
[2018-02-17 18:22] LABS: ALANINE AMINOTRANSFERASE 40 Units/L (12-78); ALBUMIN 3.8 g/dL (3.4-5.0); ALKALINE PHOSPHATASE 86 Units/L (46-116); AMYLASE 64 Units/L (25-115); ASPARTATE AMINO TRANSFERASE 39 Units/L (15-37); BASOPHILS # (AUTO) 0.1 X10^3/uL (0.0-0.1); BASOPHILS % (AUTO) 1.4 % (0.2-1.0); BLOOD UREA NITROGEN 12 mg/dL (7-18); CALCIUM 8.7 mg/dL (8.5-10.1); CARBON DIOXIDE 24.5 mmol/L (21-32); CHLORIDE 104 mmol/L (98-107); CREATININE 0.82 mg/dL (0.55-1.02); EOSINOPHILS # (AUTO) 0.1 x10^3/uL (0.0-0.2); EOSINOPHILS % (AUTO) 1.3 % (0.9-2.9); HEMATOCRIT 33.4 % (36.0-47.0); LIPASE 169 Units/L (73-393); LYMPHOCYTES % (AUTO) 31.2 % (21.0-51.0); MEAN CORPUSCULAR HEMOGLOBIN 19.5 pg (27.0-34.0); MEAN CORPUSCULAR VOLUME 64.9 fL (80.0-100.0); MEAN PLATELET VOLUME 9.8 fL (7.4-11.0); MONOCYTES # (AUTO) 0.6 x10^3/uL (0.3-0.8); MONOCYTES % (AUTO) 5.9 % (0.0-13.0); NEUTROPHILS # (AUTO) 5.7 x10^3/uL (2.2-4.8); NEUTROPHILS % (AUTO) 60.2 % (42.0-75.0); PLATELET COUNT 513 X10^3/uL (150.0-450.0); RED BLOOD COUNT 5.15 X10^6/uL (3.5-5.4); RED CELL DISTRIBUTION WIDTH 17.9 % (11.6-16.5); SODIUM 139 mmol/L (136-145); TOTAL PROTEIN 8.3 g/dL (6.4-8.2); WHITE BLOOD COUNT 9.5 X10^3/uL (3.6-10.0); eGFR BLACK RACES > 60 (>60); eGFR NON BLACK RACES > 60 (>60)
[2018-02-17 18:31] LABS: ANISOCYTOSIS SLIGHT; HYPOCHROMASIA 3+; MICROCYTOSIS 2+; PLATELET MORPHOLOGY COMMENT NORMAL (NORMAL)
== END 2018-02-17 18:49 | disposition home or self-care (01) ==
LOC: ER 13:38
DX: R10.31 Right lower quadrant pain (principal); N83.201 Unspecified ovarian cyst, right side; M54.5 Low back pain
CPT/HCPCS: 36415; 74176; 80053; 81001; 82150; 83690; 84703; 85025; 96372; 99282; 99283; J1885; J2175; J2405

== ENCOUNTER 2018-07-08 11:17 | Observation (INO) ==
[2018-07-08] MEDS ORDERED: DEMEROL INJ IVP PRN (11:21)
[2018-07-08] MEDS: PEPCID 20 MG IV PREMIX* 20 MG/50 ML BAG IV SCH ×2 (12:21→20:18)
[2018-07-08] MEDS: PROTONIX INJ 40 MG VIAL IVP SCH ×2 (12:21→20:18)
[2018-07-08] MEDS: NS 1000 ML 1,000 ML IV SCH ×2 (12:21→20:27)
[2018-07-08] MEDS: ZOFRAN INJ 4 MG VIAL IVP PRN (12:22)
[2018-07-08 12:31] LABS: BASOPHILS % (AUTO) 0.3 % (0.2-1.0); EOSINOPHILS # (AUTO) 0.3 x10^3/uL (0.0-0.2); EOSINOPHILS % (AUTO) 3.9 % (0.9-2.9); HEMATOCRIT 36.7 % (36.0-47.0); HEMOGLOBIN 12.1 g/dL (12.0-16.0); LYMPHOCYTES % (AUTO) 13.3 % (21.0-51.0); MEAN CORPUSCULAR HEMOGLOBIN 24.7 pg (27.0-34.0); MEAN CORPUSCULAR HGB CONC 32.9 g/dL (33.0-35.0); MEAN CORPUSCULAR VOLUME 75.1 fL (80.0-100.0); MEAN PLATELET VOLUME 8.6 fL (7.4-11.0); MONOCYTES # (AUTO) 1.1 x10^3/uL (0.3-0.8); MONOCYTES % (AUTO) 15.3 % (0.0-13.0); NEUTROPHILS % (AUTO) 67.2 % (42.0-75.0); PLATELET COUNT 383 X10^3/uL (150.0-450.0); RED BLOOD COUNT 4.88 X10^6/uL (3.5-5.4); RED CELL DISTRIBUTION WIDTH 33.3 % (11.6-16.5); WHITE BLOOD COUNT 7.4 X10^3/uL (3.6-10.0)
[2018-07-08 12:41] LABS: ALANINE AMINOTRANSFERASE 30 Units/L (12-78); ALBUMIN 2.9 g/dL (3.4-5.0); ALKALINE PHOSPHATASE 61 Units/L (46-116); ANISOCYTOSIS 3+; ASPARTATE AMINO TRANSFERASE 10 Units/L (15-37); BLOOD UREA NITROGEN 10 mg/dL (7-18); CALCIUM 8.6 mg/dL (8.5-10.1); CARBON DIOXIDE 21.8 mmol/L (21-32); CHLORIDE 104 mmol/L (98-107); COR CA(FOR HYPOALB) 9.5 mg/dL (8.5-10.1); CREATININE 0.77 mg/dL (0.55-1.02); PLATELET MORPHOLOGY COMMENT NORMAL (NORMAL); SODIUM 138 mmol/L (136-145); TOTAL PROTEIN 7.1 g/dL (6.4-8.2); eGFR NON BLACK RACES > 60 (>60)
[2018-07-08 14:14] VITALS: BMI 28.6
[2018-07-08] MEDS ORDERED: HALDOL INJ IM PRN (14:39)
[2018-07-08 18:25] LABS: BILIRUBIN,URINE NEGATIVE (NEGATIVE); BLOOD/HEMOGLOBIN,URINE 5+ (NEGATIVE); GLUCOSE, URINE NEGATIVE (NEGATIVE); KETONES,URINE NEGATIVE (NEGATIVE); LEUKOCYTE ESTERASE ,URINE 3+ (NEGATIVE); NITRITES,URINE NEGATIVE (NEGATIVE); PROTEIN,URINE 3+ (NEGATIVE); UROBILINOGEN,URINE NORMAL (NORMAL)
[2018-07-08] MEDS ORDERED: POTASSIUM CHL 60 MEQ/NS 0.45% 500 ML IV PRN (18:31)
[2018-07-08] MEDS ORDERED: K-LYTE EFFERVESCENT PO PRN (18:31)
[2018-07-08] MEDS ORDERED: K-RIDER 10 MEQ/NS 100 ML 10 MEQ/100 ML BAG IV PRN (18:31)
[2018-07-08] MEDS ORDERED: POTASSIUM CHLORIDE LIQ 20 MEQ UDC PO PRN (18:31)
[2018-07-08] MEDS ORDERED: POTASSIUM CHL 40 MEQ/NS 0.45% 500 ML IV PRN (18:31)
[2018-07-08 18:35] LABS: APPEARANCE,URINE HAZY (CLEAR); BACTERIA,URINE 1+ /HPF (NEGATIVE); COLOR,URINE DARK YELLOW (YELLOW); RBC,URINE TNTC /HPF (NONE SEEN); SQUAMOUS EPITHELIAL CELL,UR MODERATE /HPF (NEGATIVE)
[2018-07-08] MEDS: RESTORIL CAP 15 MG PO PRN (20:19)
[2018-07-08] MEDS: DEMEROL INJ IVP PRN (20:27)
[2018-07-08] MEDS ORDERED: K-LYTE EFFERVESCENT ONE (20:33)
[2018-07-08] MEDS: ROCEPHIN VIAL 1 GRAM IVP SCH ×2 (21:31→21:47)
[2018-07-09] MEDS: DEMEROL INJ IVP PRN ×6 (02:51→23:17)
[2018-07-09] MEDS: NS 1000 ML 1,000 ML IV SCH ×3 (04:40→20:32)
[2018-07-09 06:02] LABS: BASOPHILS % (AUTO) 0.7 % (0.2-1.0); EOSINOPHILS # (AUTO) 0.3 x10^3/uL (0.0-0.2); EOSINOPHILS % (AUTO) 4.5 % (0.9-2.9); HEMATOCRIT 34.4 % (36.0-47.0); HEMOGLOBIN 11.3 g/dL (12.0-16.0); LYMPHOCYTES # (AUTO) 1.1 X10^3/uL (1.3-2.9); LYMPHOCYTES % (AUTO) 17.7 % (21.0-51.0); MEAN CORPUSCULAR HEMOGLOBIN 24.8 pg (27.0-34.0); MEAN CORPUSCULAR HGB CONC 32.8 g/dL (33.0-35.0); MEAN CORPUSCULAR VOLUME 75.4 fL (80.0-100.0); MEAN PLATELET VOLUME 8.3 fL (7.4-11.0); MONOCYTES # (AUTO) 1.1 x10^3/uL (0.3-0.8); MONOCYTES % (AUTO) 17.1 % (0.0-13.0); NEUTROPHILS # (AUTO) 3.8 x10^3/uL (2.2-4.8); PLATELET COUNT 333 X10^3/uL (150.0-450.0); RED BLOOD COUNT 4.57 X10^6/uL (3.5-5.4); RED CELL DISTRIBUTION WIDTH 32.9 % (11.6-16.5); WHITE BLOOD COUNT 6.3 X10^3/uL (3.6-10.0)
[2018-07-09 06:15] LABS: ALANINE AMINOTRANSFERASE 25 Units/L (12-78); ALBUMIN 2.7 g/dL (3.4-5.0); ALKALINE PHOSPHATASE 54 Units/L (46-116); ASPARTATE AMINO TRANSFERASE 10 Units/L (15-37); BLOOD UREA NITROGEN 11 mg/dL (7-18); CALCIUM 8.5 mg/dL (8.5-10.1); CARBON DIOXIDE 23.3 mmol/L (21-32); CHLORIDE 104 mmol/L (98-107); COR CA(FOR HYPOALB) 9.5 mg/dL (8.5-10.1); CREATININE 0.83 mg/dL (0.55-1.02); SODIUM 137 mmol/L (136-145); TOTAL PROTEIN 6.7 g/dL (6.4-8.2); eGFR NON BLACK RACES > 60 (>60)
[2018-07-09 07:01] LABS: ANISOCYTOSIS 3+; PLATELET MORPHOLOGY COMMENT NORMAL (NORMAL)
[2018-07-09 09:05] LABS: BILIRUBIN,URINE NEGATIVE (NEGATIVE); BLOOD/HEMOGLOBIN,URINE 5+ (NEGATIVE); GLUCOSE, URINE NEGATIVE (NEGATIVE); KETONES,URINE NEGATIVE (NEGATIVE); LEUKOCYTE ESTERASE ,URINE 1+ (NEGATIVE); NITRITES,URINE NEGATIVE (NEGATIVE); PROTEIN,URINE 2+ (NEGATIVE); UROBILINOGEN,URINE NORMAL (NORMAL)
[2018-07-09 09:19] LABS: APPEARANCE,URINE HAZY (CLEAR); COLOR,URINE YELLOW (YELLOW)
[2018-07-09 09:20] LABS: BACTERIA,URINE TRACE /HPF (NEGATIVE); SQUAMOUS EPITHELIAL CELL,UR FEW /HPF (NEGATIVE)
[2018-07-09] MEDS: PROTONIX INJ 40 MG VIAL IVP SCH ×2 (09:43→20:34)
[2018-07-09] MEDS: PEPCID 20 MG IV PREMIX* 20 MG/50 ML BAG IV SCH ×2 (09:44→20:28)
[2018-07-09] MEDS: ROCEPHIN VIAL 1 GRAM IVP SCH (09:44)
[2018-07-09] MEDS: BENTYL CAP 10 MG PO SCH ×4 (11:03→20:34)
--- NOTE | 2018-07-09 14:15 | DR.UPDATE ---
H&P Update History and Physical Update: WAS SEEN IN THE OFFICE BY YESTERDAY. A H&P WAS COMPLETED PRIOR TO ADMISSION. PATIENT HAS BEEN SEEN AND EXAMINED WITH NO CHANGE NOTED TO H&P. Changes noted: NO Yes with the following:
[2018-07-09] MEDS: CIPRO IV 400 MG PREMIX* 400 MG/200 ML IV.SOLN. IV SCH ×2 (14:19→20:34)
[2018-07-09] MEDS ORDERED: PATIENT'S HOME MEDICATION (Ferrous Sulfate [Ferrous Sulfate] 1 TAB) PO SCH (14:45)
[2018-07-09] MEDS ORDERED: PREVACID PO SCH (15:00)
[2018-07-09] MEDS ORDERED: NORCO 10/325 TAB PO SCH (15:00)
[2018-07-09] MEDS: SINGULAIR TAB 10 MG PO SCH (15:19)
[2018-07-09] MEDS: HEMOCYTE-PLUS PO SCH (15:19)
[2018-07-09] MEDS: CYMBALTA PO SCH (15:19)
[2018-07-09] MEDS: ZyrTEC TAB 10 MG PO SCH (15:20)
[2018-07-09] MEDS: ZOFRAN INJ 4 MG VIAL IVP PRN (19:26)
[2018-07-09] MEDS: RESTORIL CAP 15 MG PO PRN (20:34)
[2018-07-10] MEDS: DEMEROL INJ IVP PRN ×4 (03:31→16:13)
[2018-07-10] MEDS: NS 1000 ML 1,000 ML IV SCH ×2 (06:05→12:30)
[2018-07-10] MEDS: PEPCID 20 MG IV PREMIX* 20 MG/50 ML BAG IV SCH (08:07)
[2018-07-10] MEDS: CYMBALTA PO SCH (08:07)
[2018-07-10] MEDS: HEMOCYTE-PLUS PO SCH (08:07)
[2018-07-10] MEDS: PROTONIX INJ 40 MG VIAL IVP SCH (08:07)
[2018-07-10] MEDS: CIPRO IV 400 MG PREMIX* 400 MG/200 ML IV.SOLN. IV SCH (08:07)
[2018-07-10] MEDS: BENTYL CAP 10 MG PO SCH ×2 (08:07→13:12)
[2018-07-10] MEDS: SINGULAIR TAB 10 MG PO SCH (08:08)
[2018-07-10] MEDS: ZyrTEC TAB 10 MG PO SCH (08:08)
[2018-07-10 08:57] LABS: BASOPHILS % (AUTO) 0.7 % (0.2-1.0); EOSINOPHILS # (AUTO) 0.2 x10^3/uL (0.0-0.2); EOSINOPHILS % (AUTO) 3.3 % (0.9-2.9); HEMATOCRIT 30.7 % (36.0-47.0); LYMPHOCYTES # (AUTO) 1.6 X10^3/uL (1.3-2.9); LYMPHOCYTES % (AUTO) 32.4 % (21.0-51.0); MEAN CORPUSCULAR HEMOGLOBIN 24.9 pg (27.0-34.0); MEAN CORPUSCULAR HGB CONC 32.7 g/dL (33.0-35.0); MEAN CORPUSCULAR VOLUME 76.1 fL (80.0-100.0); MONOCYTES # (AUTO) 0.7 x10^3/uL (0.3-0.8); MONOCYTES % (AUTO) 13.8 % (0.0-13.0); NEUTROPHILS # (AUTO) 2.5 x10^3/uL (2.2-4.8); NEUTROPHILS % (AUTO) 49.8 % (42.0-75.0); PLATELET COUNT 300 X10^3/uL (150.0-450.0); RED BLOOD COUNT 4.04 X10^6/uL (3.5-5.4); RED CELL DISTRIBUTION WIDTH 31.9 % (11.6-16.5)
[2018-07-10 09:10] LABS: HYPOCHROMASIA SLIGHT; MICROCYTOSIS SLIGHT; PLATELET MORPHOLOGY COMMENT NORMAL (NORMAL)
[2018-07-10 09:15] LABS: ALANINE AMINOTRANSFERASE 22 Units/L (12-78); ALBUMIN 2.4 g/dL (3.4-5.0); ALKALINE PHOSPHATASE 50 Units/L (46-116); ASPARTATE AMINO TRANSFERASE 14 Units/L (15-37); BLOOD UREA NITROGEN 7 mg/dL (7-18); CALCIUM 7.7 mg/dL (8.5-10.1); CARBON DIOXIDE 23.3 mmol/L (21-32); CHLORIDE 106 mmol/L (98-107); COR NA(FOR HYPERGLY) 140 mmol/L (136-145); SODIUM 139 mmol/L (136-145); TOTAL PROTEIN 5.5 g/dL (6.4-8.2); eGFR NON BLACK RACES > 60 (>60)
[2018-07-10] MEDS ORDERED: NEOSPORIN OINT TOP ONE (11:35)
[2018-07-10 15:29] VITALS: BP 137/89
== END 2018-07-10 16:13 | disposition home or self-care (01) ==
LOC: OBS → MED/SURG 13:53 → OBS 16:03 → MED/SURG 07-09 14:00
PROVIDERS: ADMIT Internal Medicine; ATTEND Internal Medicine
DX: K52.89 Other specified noninfective gastroenteritis and colitis; R51 Headache; D50.8 Other iron deficiency anemias; E86.0 Dehydration; R19.7 Diarrhea, unspecified; R11.0 Nausea; E87.6 Hypokalemia
CPT/HCPCS: 36415; 80053; 81001; 82270; 82607; 82728; 82746; 83540; 83735; 84466; 85025; 87045; 87427; 87449; 87899; 99217; A4222; C9113; S0028; G0378; J0696; J0744; J1630; J2175; J2405; J7030; J8499

== ENCOUNTER 2018-07-12 13:35 | Inpatient (IN) ==
[2018-07-12] MEDS ORDERED: NS 25 ML IV 25 ML IV ONE (15:31)
[2018-07-12] MEDS: DEMEROL INJ IVP PRN ×3 (15:45→23:55)
[2018-07-12] MEDS: NS 1000 ML 1,000 ML IV SCH ×2 (15:45→23:53)
[2018-07-12] MEDS: PHENERGAN INJ 25 MG IV PRN ×2 (15:45→20:10)
[2018-07-12] MEDS: PROTONIX INJ 40 MG VIAL IVP SCH ×2 (15:46→20:09)
[2018-07-12] MEDS: PEPCID 20 MG IV PREMIX* 20 MG/50 ML BAG IV SCH ×2 (16:22→20:06)
[2018-07-12] MEDS: BENTYL CAP 10 MG PO SCH ×4 (16:24→20:09)
[2018-07-12] MEDS ORDERED: NS 100 ML IV 100 ML IV ONE (16:51)
[2018-07-12 17:19] LABS: BILIRUBIN,URINE NEGATIVE (NEGATIVE); BLOOD/HEMOGLOBIN,URINE 1+ (NEGATIVE); GLUCOSE, URINE NEGATIVE (NEGATIVE); KETONES,URINE 2+ (NEGATIVE); LEUKOCYTE ESTERASE ,URINE 1+ (NEGATIVE); NITRITES,URINE NEGATIVE (NEGATIVE); PROTEIN,URINE 1+ (NEGATIVE); UROBILINOGEN,URINE 1+ (NORMAL)
[2018-07-12 17:26] LABS: APPEARANCE,URINE HAZY (CLEAR); COLOR,URINE BROWN (YELLOW)
[2018-07-12 17:27] LABS: AMORPHOUS SEDIMENT,UR 2+ /HPF (NEGATIVE); BACTERIA,URINE 2+ /HPF (NEGATIVE); SQUAMOUS EPITHELIAL CELL,UR FEW /HPF (NEGATIVE)
[2018-07-12 17:36] LABS: STOOL FOR WBC POSITIVE (NEGATIVE)
[2018-07-12 17:58] LABS: CRYPTOSPORIDIUM PARVUM ANTIGEN NEGATIVE (NEGATIVE); GIARDIA LAMBLIA ANTIGEN NEGATIVE (NEGATIVE)
--- NOTE | 2018-07-12 18:27 | CT ---
HISTORY: Abdominal pain, nausea, vomiting, diarrhea. Study: CT abdomen and pelvis with IV and oral contrast Comparison: 02/17/2018 Technique: Multiple axial images of the abdomen and pelvis were obtained from the lung bases to the pubic symphy sis during the administration of IV contrast. Oral contrast agents were also given. Coronal and sagit delvin images are also reviewed. Dose reduction techniques utilized automatic exposure control. Findings: The visualized portions of the lung bases are unremarkable. The liver, spleen, pancreas, kidneys, an d adrenal glands are unremarkable in their CT appearance. The gallbladder is surgically absent. The a ppendix and left ovary are surgically absent also.. No significant mesenteric lymphadenopathy or str anding can be observed. No free fluid or free air is seen within the abdomen. No bowel wall thicken ing or bowel dilatation is present. There is concentric wall thickening involving the descending col on with a very smooth and ahaustral appearing sigmoid colon. The findings may indicate colitis. Endos copic evaluation of these regions is suggested, when clinically feasible. There is a 3 cm simple cyst of the remaining right ovary. The uterus is unremarkable.. The urinary bladder is grossly unremarkab le. The bony structures are grossly intact. IMPRESSION: Diffuse wall thickening of the descending colon with a very smooth and ahaustral appearance of the si gmoid colon. Findings may indicate colitis. Endoscopic evaluation of these regions is suggested, when clinically feasible. No evidence of bowel obstruction or perforation. 3 cm simple cyst of the right ovary. Reported By:
[2018-07-13] MEDS: PHENERGAN INJ 25 MG IV PRN ×5 (00:03→19:40)
[2018-07-13] MEDS: NS 1000 ML 1,000 ML IV SCH ×4 (01:23→21:55)
[2018-07-13] MEDS: DEMEROL INJ IVP PRN ×5 (04:45→21:24)
[2018-07-13 05:13] LABS: BASOPHILS # (AUTO) 0.1 X10^3/uL (0.0-0.1); BASOPHILS % (AUTO) 1.3 % (0.2-1.0); EOSINOPHILS # (AUTO) 0.2 x10^3/uL (0.0-0.2); EOSINOPHILS % (AUTO) 1.8 % (0.9-2.9); HEMATOCRIT 35.9 % (36.0-47.0); HEMOGLOBIN 11.7 g/dL (12.0-16.0); LYMPHOCYTES # (AUTO) 2.2 X10^3/uL (1.3-2.9); LYMPHOCYTES % (AUTO) 21.1 % (21.0-51.0); MEAN CORPUSCULAR HEMOGLOBIN 24.7 pg (27.0-34.0); MEAN CORPUSCULAR HGB CONC 32.5 g/dL (33.0-35.0); MEAN PLATELET VOLUME 8.2 fL (7.4-11.0); MONOCYTES # (AUTO) 0.9 x10^3/uL (0.3-0.8); MONOCYTES % (AUTO) 8.9 % (0.0-13.0); NEUTROPHILS # (AUTO) 6.9 x10^3/uL (2.2-4.8); NEUTROPHILS % (AUTO) 66.9 % (42.0-75.0); PLATELET COUNT 327 X10^3/uL (150.0-450.0); RED BLOOD COUNT 4.72 X10^6/uL (3.5-5.4); RED CELL DISTRIBUTION WIDTH 31.2 % (11.6-16.5); WHITE BLOOD COUNT 10.3 X10^3/uL (3.6-10.0)
[2018-07-13 05:21] LABS: ALANINE AMINOTRANSFERASE 42 Units/L (12-78); ALBUMIN 2.7 g/dL (3.4-5.0); ALKALINE PHOSPHATASE 62 Units/L (46-116); ASPARTATE AMINO TRANSFERASE 33 Units/L (15-37); BLOOD UREA NITROGEN 6 mg/dL (7-18); CALCIUM 8.2 mg/dL (8.5-10.1); CARBON DIOXIDE 23.4 mmol/L (21-32); CHLORIDE 104 mmol/L (98-107); COR CA(FOR HYPOALB) 9.2 mg/dL (8.5-10.1); SODIUM 140 mmol/L (136-145); TOTAL PROTEIN 6.4 g/dL (6.4-8.2); eGFR NON BLACK RACES > 60 (>60)
[2018-07-13 05:35] LABS: ANISOCYTOSIS 3+; BAND NEUTROPHILS % 8 % (0-10); PLATELET MORPHOLOGY COMMENT NORMAL (NORMAL)
[2018-07-13] MEDS ORDERED: NS 25 ML IV 25 ML IV ONE ×3 (08:14→19:23)
[2018-07-13] MEDS: BENTYL CAP 10 MG PO SCH ×4 (08:56→20:31)
[2018-07-13] MEDS: PROTONIX INJ 40 MG VIAL IVP SCH ×2 (08:56→20:31)
[2018-07-13] MEDS: PEPCID 20 MG IV PREMIX* 20 MG/50 ML BAG IV SCH ×2 (08:57→20:31)
[2018-07-13] MEDS ORDERED: CITROMA PO ONE (09:52)
--- NOTE | 2018-07-13 10:01 | DR.UPDATE ---
H&P Update History and Physical Update: WAS SEEN IN THE OFFICE TODAY. A H&P WAS COMPLETED PRIOR TO ADMISSION. PATIENT HAS BEEN SEEN AND EXAMINED WITH NO CHANGES NOTED TO H&P. Changes noted: NO Yes with the following:
--- NOTE | 2018-07-13 10:19 | PCM.PROG ---
Progress Note - Progress Note for Day of Date of Exam: 07/13/18 - Subjective Subjective: WAS ADMITTED FOR COMPLAINTS OF ABDOMINAL PAIN YESTERDAY. SHE WAS DISCHARGED HOME FROM THE HOSPITAL ON THURSDAY FOR TREATMENT OF GASTROENTERITIS. TODAY, SHE IS ALERT AND ORIENTED, LYING IN BED ON MORNING ROUNDS. SHE CONTINUES WITH COMPLAINTS OF DIFFUSE ABDOMINAL PAIN AND DIARRHEA. ON EXAMINATION, HEART IS REGULAR IN RATE AND RHYTHM. BILATERAL LUNGS ARE CLEAR TO AUSCULTATION. ABDOMEN IS ROUND, SOFT, AND NOTED WITH INCREASED BOWEL SOUNDS THROUGHOUT. HER VITALS THIS MORNING ARE 97.6-87-20-97%-139/81. LABS WERE OBTAINED. ABNORMAL LAB VALUES INCLUDE THE FOLLOWING: WBC 10.3, HGB 11.7, HCT 35.9, BUN 6, CALCIUM 8.2, ALBUMIN 2.74. URINALYSIS REVEALED: WBC 3-5, RBC 3-5, BACTERIA 2+, LEUKOCYTES 1+. STOOLS ARE POSITIVE FOR OCCULT BLOOD AND WHITE CELLS. AN ABDOMEN/PELVIS CT WITH CONTRAST WAS OBTAINED AND REVEALED: Diffuse wall thickening of the descending colon with a very smooth and ahaustral appearance of the sigmoid colon. Findings may indicate colitis. Endoscopic evaluation of these regions is suggested, when clinically feasible. No evidence of bowel obstruction or perforation. 3 cm simple cyst of the right ovary. WILL CONSULT WITH PATIENT TODAY FOR POSSIBLE COLONOSCOPY. WE WILL START CIPRO 40MG IV Q12H, FLAGYL 500MG IV Q8H, AND SOLU-MEDROL 20MG IV Q12H TODAY. OTHERWISE, WE WILL FOLLOW UP WITH AM LABS AND CONTINUE TO MONITOR PATIENT. - Past Medical Family Social History Past Med/Fam/Surg Hx: No changes since H&P Allergies: Allergies tramadol Allergy (Verified 07/12/18 16:21) - Review of Systems ROS: No change since H&P - Vital Signs and I&O's Vital Signs: Temperature 97.6 F Pulse Rate [Right Brachial] 87 Respiratory Rate 20 Blood Pressure [Left Arm] 143/89 Blood Pressure [Right Arm] 139/81 Blood Pressure 137/89 O2 Sat by Pulse Oximetry 97 Intake and Output: Intake & Output 07/10/18 07/11/18 07/12/18 07/13/18 11:59 11:59 11:59 11:59 Intake Total 900 / 900 Balance 900 / 900 - Physical Exam Oriented: Normal Eyes: Normal Ear: Normal Nose: Normal Throat: Normal Respiratory: Normal Cardiovascular: Normal : Normal Auscultation: Bowel Sounds: Increased Palpation: Normal Tenderness: Diffuse, Moderate. negative: Rebound, Guarding, Rigidity Skin: Normal Musculoskeletal: Normal Psychiatric: Normal Mood Description: Calm Affect: Normal Speech Pattern: Clear, Appropriate - Laboratory and Diagnostics Result Diagrams: 07/13/18 05:00 07/13/18 05:00 Labs: 07/12/18 17:03 Stool - Final Laboratory WBC 10.3 X10^3/uL (3.6-10.0) H 07/13/18 05:00 RBC 4.72 X10^6/uL (3.5-5.4) 07/13/18 05:00 Hgb 11.7 g/dL (12.0-16.0) L 07/13/18 05:00 Hct 35.9 % (36.0-47.0) L 07/13/18 05:00 MCV 76.0 fL (80.0-100.0) L 07/13/18 05:00 MCH 24.7 pg (27.0-34.0) L 07/13/18 05:00 MCHC 32.5 g/dL (33.0-35.0) L 07/13/18 05:00 RDW 31.2 % (11.6-16.5) H 07/13/18 05:00 Plt Count 327 X10^3/uL (150.0-450.0) 07/13/18 05:00 Plt Count Comment Adequate (ADEQUATE) 07/13/18 05:00 MPV 8.2 fL (7.4-11.0) 07/13/18 05:00 Neut % (Auto) 66.9 % (42.0-75.0) 07/13/18 05:00 Lymph % (Auto) 21.1 % (21.0-51.0) 07/13/18 05:00 [place] % (Auto) 8.9 % (0.0-13.0) 07/13/18 05:00 Eos % (Auto) 1.8 % (0.9-2.9) 07/13/18 05:00 Baso % (Auto) 1.3 % (0.2-1.0) H 07/13/18 05:00 Neut # (Auto) 6.9 x10^3/uL (2.2-4.8) H 07/13/18 05:00 Lymph # (Auto) 2.2 X10^3/uL (1.3-2.9) 07/13/18 05:00 [place] # (Auto) 0.9 x10^3/uL (0.3-0.8) H 07/13/18 05:00 Eos # (Auto) 0.2 x10^3/uL (0.0-0.2) 07/13/18 05:00 Baso # (Auto) 0.1 X10^3/uL (0.0-0.1) 07/13/18 05:00 Absolute Nucleated RBC 0.0 /100WBC 07/13/18 05:00 Total Counted 100 07/13/18 05:00 Neutrophils % (Manual) 61 % (39-76) 07/13/18 05:00 Band Neutrophils % 8 % (0-10) 07/13/18 05:00 Lymphocytes % (Manual) 24 % (13-43) 07/13/18 05:00 Monocytes % (Manual) 6 % (4-9) 07/13/18 05:00 Eosinophils % (Manual) 1 % (0-6) 07/13/18 05:00 Plt Morphology Comment Normal (NORMAL) 07/13/18 05:00 RBC Morphology Abnormal (NORMAL) A 07/13/18 05:00 Anisocytosis 3+ A 07/13/18 05:00 Sodium 140 mmol/L (136-145) 07/13/18 05:00 Corrected Sodium TNP 07/13/18 05:00 Potassium 3.7 mmol/L (3.5-5.1) 07/13/18 05:00 Chloride 104 mmol/L (98-107) 07/13/18 05:00 Carbon Dioxide 23.4 mmol/L (21-32) 07/13/18 05:00 BUN 6 mg/dL (7-18) L 07/13/18 05:00 Creatinine 0.90 mg/dL (0.55-1.02) 07/13/18 05:00 Est GFR (MDRD) Af Amer > 60 (>60) 07/13/18 05:00 Est GFR (MDRD) Non-Af > 60 (>60) 07/13/18 05:00 Glucose 77 mg/dL (65-99) 07/13/18 05:00 Calcium 8.2 mg/dL (8.5-10.1) L 07/13/18 05:00 Corrected Calcium 9.2 mg/dL (8.5-10.1) 07/13/18 05:00 Total Bilirubin 0.20 mg/dL (0.2-1.0) 07/13/18 05:00 AST 33 Units/L (15-37) 07/13/18 05:00 ALT 42 Units/L (12-78) 07/13/18 05:00 Alkaline Phosphatase 62 Units/L (46-116) 07/13/18 05:00 Total Protein 6.4 g/dL (6.4-8.2) 07/13/18 05:00 Albumin 2.7 g/dL (3.4-5.0) L 07/13/18 05:00 Globulin 3.7 g/dL (2.5-4.5) 07/13/18 05:00 Albumin/Globulin Ratio 0.7 Ratio (1.1-2.1) L 07/13/18 05:00 Specimen Type Clean catch urine 07/12/18 17:03 Urine Color Brown (YELLOW) 07/12/18 17:03 Urine Appearance Hazy (CLEAR) 07/12/18 17:03 Urine pH 8.0 (5.0 - 8.0) 07/12/18 17:03 Ur Specific [place] 1.020 (1.000-1.030) 07/12/18 17:03 Urine Protein 1+ (NEGATIVE) 07/12/18 17:03 Urine Glucose (UA) Negative (NEGATIVE) 07/12/18 17:03 Urine Ketones 2+ (NEGATIVE) 07/12/18 17:03 Urine Occult Blood 1+ (NEGATIVE) 07/12/18 17:03 Urine Nitrite Negative (NEGATIVE) 07/12/18 17:03 Urine Bilirubin Negative (NEGATIVE) 07/12/18 17:03 Urine Urobilinogen 1+ (NORMAL) 07/12/18 17:03 Ur Leukocyte Esterase 1+ (NEGATIVE) 07/12/18 17:03 Urine RBC 3-5 /HPF (NONE SEEN) 07/12/18 17:03 Urine WBC 3-5 /HPF (NONE SEEN) 07/12/18 17:03 Ur Squamous Epith Cells Few /HPF (NEGATIVE) 07/12/18 17:03 Amorphous Sediment 2+ /HPF (NEGATIVE) 07/12/18 17:03 Urine Bacteria 2+ /HPF (NEGATIVE) 07/12/18 17:03 Ur Culture Indicated? Yes/culture set up 07/12/18 17:03 Stool Description 90g,brown,liquid 07/12/18 17:03 Stl Occult Blood (IFOB) Positive (NEGATIVE) A 07/12/18 17:03 Stool for White Cells Positive (NEGATIVE) A 07/12/18 17:03 Stl C. diff Tox B Gene Negative (NEGATIVE) 07/12/18 17:03 Stl C. diff [id number] Negative (NEGATIVE) 07/12/18 17:03 Cryptosporid parvum Ag Negative (NEGATIVE) 07/12/18 17:03 Giardia lamblia Ag Negative (NEGATIVE) 07/12/18 17:03 - Plan (1) Colitis Status: Acute Plan: CIPRO IV, FLAGYL IV, SOLU-MEDROL 20MG IV Q12H, SURGICAL CONSULT FOR COLONOSCOPY, CONTINUE TO MONITOR (2) Abdominal pain Status: Acute Qualifiers: Abdominal location: generalized Qualified Code(s): R10.84 - Generalized abdominal pain Plan: DEMEROL 25MG IV Q4H PRN PAIN, BENTYL 20MG PO QID PRN PAIN, CONTINUE TO MONITOR
[2018-07-13] MEDS: SOLU-Medrol 40 MG VIAL IVP SCH ×2 (10:29→20:31)
[2018-07-13] MEDS: ZyrTEC TAB 10 MG PO SCH (10:36)
[2018-07-13] MEDS: NEOSPORIN OINT TOP SCH ×2 (10:36→21:04)
[2018-07-13] MEDS: SINGULAIR TAB 10 MG PO SCH (10:36)
[2018-07-13] MEDS: CYMBALTA PO SCH (10:36)
[2018-07-13] MEDS: FLAGYL IV PREMIX 500 MG BAG 500 MG/100 ML BAG IV SCH ×2 (10:55→17:33)
[2018-07-13] MEDS: CIPRO IV 400 MG PREMIX* 400 MG/200 ML IV.SOLN. IV SCH ×2 (12:33→20:32)
[2018-07-13 18:55] VITALS: BMI 28.3
[2018-07-13] MEDS: RESTORIL CAP 15 MG PO PRN (20:31)
[2018-07-14] MEDS: FLAGYL IV PREMIX 500 MG BAG 500 MG/100 ML BAG IV SCH ×3 (00:02→16:29)
[2018-07-14] MEDS: DEMEROL INJ IVP PRN ×5 (01:54→19:50)
[2018-07-14] MEDS: NS 1000 ML 1,000 ML IV SCH ×3 (05:33→15:01)
[2018-07-14 06:08] LABS: BASOPHILS % (AUTO) 0.2 % (0.2-1.0); HEMATOCRIT 39.6 % (36.0-47.0); HEMOGLOBIN 12.9 g/dL (12.0-16.0); LYMPHOCYTES # (AUTO) 1.2 X10^3/uL (1.3-2.9); LYMPHOCYTES % (AUTO) 7.8 % (21.0-51.0); MEAN CORPUSCULAR HEMOGLOBIN 24.7 pg (27.0-34.0); MEAN CORPUSCULAR HGB CONC 32.6 g/dL (33.0-35.0); MEAN CORPUSCULAR VOLUME 75.9 fL (80.0-100.0); MEAN PLATELET VOLUME 8.9 fL (7.4-11.0); MONOCYTES # (AUTO) 0.6 x10^3/uL (0.3-0.8); MONOCYTES % (AUTO) 3.9 % (0.0-13.0); NEUTROPHILS # (AUTO) 13.7 x10^3/uL (2.2-4.8); NEUTROPHILS % (AUTO) 88.1 % (42.0-75.0); PLATELET COUNT 426 X10^3/uL (150.0-450.0); RED BLOOD COUNT 5.23 X10^6/uL (3.5-5.4); RED CELL DISTRIBUTION WIDTH 31.5 % (11.6-16.5); WHITE BLOOD COUNT 15.5 X10^3/uL (3.6-10.0)
[2018-07-14 06:27] LABS: ALANINE AMINOTRANSFERASE 39 Units/L (12-78); ALKALINE PHOSPHATASE 72 Units/L (46-116); ASPARTATE AMINO TRANSFERASE 20 Units/L (15-37); BLOOD UREA NITROGEN 3 mg/dL (7-18); CALCIUM 8.7 mg/dL (8.5-10.1); CARBON DIOXIDE 27.5 mmol/L (21-32); CHLORIDE 104 mmol/L (98-107); COR CA(FOR HYPOALB) 9.5 mg/dL (8.5-10.1); COR NA(FOR HYPERGLY) 140 mmol/L (136-145); SODIUM 139 mmol/L (136-145); eGFR NON BLACK RACES > 60 (>60)
[2018-07-14 07:14] LABS: ANISOCYTOSIS 2+; PLATELET MORPHOLOGY COMMENT NORMAL (NORMAL)
[2018-07-14] MEDS ORDERED: LR 1000 ML IV 1,000 ML IV ONE (09:11)
[2018-07-14] MEDS ORDERED: XYLOCAINE-MPF 1% ONE (09:22)
[2018-07-14] MEDS ORDERED: DIPRIVAN VIAL 20 ML ONE ×2 (09:22→09:32)
[2018-07-14] MEDS ORDERED: VERSED ONE (09:25)
--- NOTE | 2018-07-14 10:02 | OR.GENERIC ---
Post-Op Note Generic - Post-Op Note Operative Report: colonoscopy with bx's and collection of stool for c diff.. finding : severe Lt side ulcerative colitis with pseudo polyps and acute inflammation .. the Rt colon was fairly spared .. will increase the steroid dose and keep on full liquid diet ..
[2018-07-14] MEDS: PEPCID 20 MG IV PREMIX* 20 MG/50 ML BAG IV SCH ×2 (10:03→21:41)
[2018-07-14] MEDS: CIPRO IV 400 MG PREMIX* 400 MG/200 ML IV.SOLN. IV SCH ×2 (10:05→21:42)
[2018-07-14] MEDS: SINGULAIR TAB 10 MG PO SCH (10:07)
[2018-07-14] MEDS: ZyrTEC TAB 10 MG PO SCH (10:07)
[2018-07-14] MEDS: CYMBALTA PO SCH (10:07)
[2018-07-14] MEDS: BENTYL CAP 10 MG PO SCH ×4 (10:07→21:42)
[2018-07-14] MEDS: SOLU-Medrol 40 MG VIAL IVP SCH (10:08)
[2018-07-14] MEDS: PROTONIX INJ 40 MG VIAL IVP SCH ×2 (10:13→21:42)
[2018-07-14] MEDS: NEOSPORIN OINT TOP SCH ×2 (10:13→21:48)
[2018-07-14] MEDS: PHENERGAN INJ 25 MG IV PRN ×2 (10:18→19:50)
[2018-07-14] MEDS: SOLU-Medrol 125 MG VIAL IVP SCH ×2 (13:20→21:37)
[2018-07-14] MEDS: NORCO 10/325 TAB PO SCH ×3 (13:21→21:43)
--- NOTE | 2018-07-14 20:35 | PCM.PROG ---
Progress Note - Progress Note for Day of Date of Exam: 07/14/18 - Subjective Subjective: WAS ADMITTED FOR COMPLAINTS OF ABDOMINAL PAIN YESTERDAY. ABDOMEN/PELVIS CT REVEALED COLITIS. TODAY, SHE IS ALERT AND ORIENTED, LYING IN BED ON MORNING ROUNDS. SHE CONTINUES WITH COMPLAINTS OF DIFFUSE ABDOMINAL PAIN AND DIARRHEA. ON EXAMINATION, HEART IS REGULAR IN RATE AND RHYTHM. BILATERAL LUNGS ARE CLEAR TO AUSCULTATION. ABDOMEN IS ROUND, SOFT, AND NOTED WITH INCREASED BOWEL SOUNDS THROUGHOUT. HER VITALS THIS MORNING ARE 98.7-85-18-99%- 131/81. LABS WERE OBTAINED. ABNORMAL LAB VALUES INCLUDE THE FOLLOWING: WBC INCREASED TO 15.5, BUN 3, GLUCOSE 137, ALBUMIN 3.0. DR. LEON CONSULTED WITH PATIENT AND PLANS FOR A COLONOSCOPY TODAY. WE ARE IN AGREEMENT WITH PLAN. WILL WILL CONTINUE WITH CIPRO 40MG IV Q12H, FLAGYL 500MG IV Q8H, AND SOLU-MEDROL 20MG IV Q12H TODAY. OTHERWISE, WE WILL FOLLOW UP WITH AM LABS AND CONTINUE TO MONITOR PATIENT. - Past Medical Family Social History Past Med/Fam/Surg Hx: No changes since H&P Allergies: Allergies tramadol Allergy (Verified 07/12/18 16:21) - Review of Systems ROS: No change since H&P - Vital Signs and I&O's Vital Signs: Temperature 98.1 F Pulse Rate [Right Brachial] 97 Respiratory Rate 20 Blood Pressure [Left Arm] 132/83 Blood Pressure [Right Arm] 116/57 Blood Pressure 137/89 O2 Sat by Pulse Oximetry 99 Intake and Output: Intake & Output 07/12/18 07/13/18 07/14/18 07/15/18 11:59 11:59 11:59 11:59 Intake Total 900 / 900 3250 / 3250 480 / 480 Balance 900 / 900 3250 / 3250 480 / 480 - Physical Exam Oriented: Normal Eyes: Normal Ear: Normal Nose: Normal Throat: Normal Respiratory: Normal Cardiovascular: Normal : Normal Auscultation: Bowel Sounds: Increased Palpation: Normal Tenderness: Diffuse, Moderate. negative: Rebound, Guarding, Rigidity Skin: Normal Musculoskeletal: Normal Psychiatric: Normal Mood Description: Calm Affect: Normal Speech Pattern: Clear, Appropriate - Laboratory and Diagnostics Result Diagrams: 07/14/18 05:05 07/14/18 05:05 Labs: 07/12/18 17:03 Stool Stool Culture - Preliminary 07/12/18 17:03 Stool - Final 07/12/18 17:03 Urine,Clean Catch Urine Culture - Preliminary Laboratory WBC 15.5 X10^3/uL (3.6-10.0) H 07/14/18 05:05 RBC 5.23 X10^6/uL (3.5-5.4) 07/14/18 05:05 Hgb 12.9 g/dL (12.0-16.0) 07/14/18 05:05 Hct 39.6 % (36.0-47.0) 07/14/18 05:05 MCV 75.9 fL (80.0-100.0) L 07/14/18 05:05 MCH 24.7 pg (27.0-34.0) L 07/14/18 05:05 MCHC 32.6 g/dL (33.0-35.0) L 07/14/18 05:05 RDW 31.5 % (11.6-16.5) H 07/14/18 05:05 Plt Count 426 X10^3/uL (150.0-450.0) 07/14/18 05:05 Plt Count Comment Adequate (ADEQUATE) 07/14/18 05:05 MPV 8.9 fL (7.4-11.0) 07/14/18 05:05 Neut % (Auto) 88.1 % (42.0-75.0) H 07/14/18 05:05 Lymph % (Auto) 7.8 % (21.0-51.0) L 07/14/18 05:05 [place] % (Auto) 3.9 % (0.0-13.0) 07/14/18 05:05 Eos % (Auto) 0.0 % (0.9-2.9) L 07/14/18 05:05 Baso % (Auto) 0.2 % (0.2-1.0) 07/14/18 05:05 Neut # (Auto) 13.7 x10^3/uL (2.2-4.8) H 07/14/18 05:05 Lymph # (Auto) 1.2 X10^3/uL (1.3-2.9) L 07/14/18 05:05 [place] # (Auto) 0.6 x10^3/uL (0.3-0.8) 07/14/18 05:05 Eos # (Auto) 0.0 x10^3/uL (0.0-0.2) 07/14/18 05:05 Baso # (Auto) 0.0 X10^3/uL (0.0-0.1) 07/14/18 05:05 Absolute Nucleated RBC 0.0 /100WBC 07/14/18 05:05 Total Counted 100 07/13/18 05:00 Neutrophils % (Manual) 61 % (39-76) 07/13/18 05:00 Band Neutrophils % 8 % (0-10) 07/13/18 05:00 Lymphocytes % (Manual) 24 % (13-43) 07/13/18 05:00 Monocytes % (Manual) 6 % (4-9) 07/13/18 05:00 Eosinophils % (Manual) 1 % (0-6) 07/13/18 05:00 Plt Morphology Comment Normal (NORMAL) 07/14/18 05:05 RBC Morphology Abnormal (NORMAL) A 07/14/18 05:05 Anisocytosis 2+ A 07/14/18 05:05 Sodium 139 mmol/L (136-145) 07/14/18 05:05 Corrected Sodium 140 mmol/L (136-145) 07/14/18 05:05 Potassium 4.2 mmol/L (3.5-5.1) 07/14/18 05:05 Chloride 104 mmol/L (98-107) 07/14/18 05:05 Carbon Dioxide 27.5 mmol/L (21-32) 07/14/18 05:05 BUN 3 mg/dL (7-18) L 07/14/18 05:05 Creatinine 0.80 mg/dL (0.55-1.02) 07/14/18 05:05 Est GFR (MDRD) Af Amer > 60 (>60) 07/14/18 05:05 Est GFR (MDRD) Non-Af > 60 (>60) 07/14/18 05:05 Glucose 137 mg/dL (65-99) H 07/14/18 05:05 Calcium 8.7 mg/dL (8.5-10.1) 07/14/18 05:05 Corrected Calcium 9.5 mg/dL (8.5-10.1) 07/14/18 05:05 Total Bilirubin 0.20 mg/dL (0.2-1.0) 07/14/18 05:05 AST 20 Units/L (15-37) 07/14/18 05:05 ALT 39 Units/L (12-78) 07/14/18 05:05 Alkaline Phosphatase 72 Units/L (46-116) 07/14/18 05:05 Total Protein 7.0 g/dL (6.4-8.2) 07/14/18 05:05 Albumin 3.0 g/dL (3.4-5.0) L 07/14/18 05:05 Globulin 4.0 g/dL (2.5-4.5) 07/14/18 05:05 Albumin/Globulin Ratio 0.8 Ratio (1.1-2.1) L 07/14/18 05:05 Specimen Type Clean catch urine 07/12/18 17:03 Urine Color Brown (YELLOW) 07/12/18 17:03 Urine Appearance Hazy (CLEAR) 07/12/18 17:03 Urine pH 8.0 (5.0 - 8.0) 07/12/18 17:03 Ur Specific [place] 1.020 (1.000-1.030) 07/12/18 17:03 Urine Protein 1+ (NEGATIVE) 07/12/18 17:03 Urine Glucose (UA) Negative (NEGATIVE) 07/12/18 17:03 Urine Ketones 2+ (NEGATIVE) 07/12/18 17:03 Urine Occult Blood 1+ (NEGATIVE) 07/12/18 17:03 Urine Nitrite Negative (NEGATIVE) 07/12/18 17:03 Urine Bilirubin Negative (NEGATIVE) 07/12/18 17:03 Urine Urobilinogen 1+ (NORMAL) 07/12/18 17:03 Ur Leukocyte Esterase 1+ (NEGATIVE) 07/12/18 17:03 Urine RBC 3-5 /HPF (NONE SEEN) 07/12/18 17:03 Urine WBC 3-5 /HPF (NONE SEEN) 07/12/18 17:03 Ur Squamous Epith Cells Few /HPF (NEGATIVE) 07/12/18 17:03 Amorphous Sediment 2+ /HPF (NEGATIVE) 07/12/18 17:03 Urine Bacteria 2+ /HPF (NEGATIVE) 07/12/18 17:03 Ur Culture Indicated? Yes/culture set up 07/12/18 17:03 Stool Description 90g,brown,liquid 07/12/18 17:03 Stl Occult Blood (IFOB) Positive (NEGATIVE) A 07/12/18 17:03 Stool for White Cells Positive (NEGATIVE) A 07/12/18 17:03 Stl C. diff Tox B Gene Negative (NEGATIVE) 07/14/18 09:35 Stl C. diff [id number] Negative (NEGATIVE) 07/14/18 09:35 Cryptosporid parvum Ag Negative (NEGATIVE) 07/12/18 17:03 Giardia lamblia Ag Negative (NEGATIVE) 07/12/18 17:03 Tissue Pathology To follow 07/14/18 09:42 - Plan (1) Colitis Status: Acute Plan: CIPRO IV, FLAGYL IV, SOLU-MEDROL 20MG IV Q12H, SURGICAL CONSULT FOR COLONOSCOPY, CONTINUE TO MONITOR (2) Abdominal pain Status: Acute Qualifiers: Abdominal location: generalized Qualified Code(s): R10.84 - Generalized abdominal pain Plan: DEMEROL 25MG IV Q4H PRN PAIN, BENTYL 20MG PO QID PRN PAIN, CONTINUE TO MONITOR
[2018-07-14] MEDS: RESTORIL CAP 15 MG PO PRN (22:20)
[2018-07-15] MEDS: DEMEROL INJ IVP PRN ×2 (00:01→08:00)
[2018-07-15] MEDS: NS 1000 ML 1,000 ML IV SCH ×2 (00:34→09:17)
[2018-07-15] MEDS: FLAGYL IV PREMIX 500 MG BAG 500 MG/100 ML BAG IV SCH ×2 (01:30→08:18)
[2018-07-15] MEDS: SOLU-Medrol 125 MG VIAL IVP SCH (06:04)
[2018-07-15 06:38] LABS: BASOPHILS % (AUTO) 0.3 % (0.2-1.0); HEMATOCRIT 37.7 % (36.0-47.0); HEMOGLOBIN 12.3 g/dL (12.0-16.0); LYMPHOCYTES # (AUTO) 1.1 X10^3/uL (1.3-2.9); LYMPHOCYTES % (AUTO) 7.7 % (21.0-51.0); MEAN CORPUSCULAR HEMOGLOBIN 24.8 pg (27.0-34.0); MEAN CORPUSCULAR HGB CONC 32.5 g/dL (33.0-35.0); MEAN CORPUSCULAR VOLUME 76.3 fL (80.0-100.0); MEAN PLATELET VOLUME 8.6 fL (7.4-11.0); MONOCYTES # (AUTO) 0.4 x10^3/uL (0.3-0.8); MONOCYTES % (AUTO) 2.7 % (0.0-13.0); NEUTROPHILS # (AUTO) 12.9 x10^3/uL (2.2-4.8); NEUTROPHILS % (AUTO) 89.3 % (42.0-75.0); PLATELET COUNT 444 X10^3/uL (150.0-450.0); RED BLOOD COUNT 4.94 X10^6/uL (3.5-5.4); RED CELL DISTRIBUTION WIDTH 32.6 % (11.6-16.5); WHITE BLOOD COUNT 14.4 X10^3/uL (3.6-10.0)
[2018-07-15 07:00] LABS: ALANINE AMINOTRANSFERASE 31 Units/L (12-78); ALBUMIN 2.8 g/dL (3.4-5.0); ALKALINE PHOSPHATASE 74 Units/L (46-116); ASPARTATE AMINO TRANSFERASE 14 Units/L (15-37); BLOOD UREA NITROGEN 3 mg/dL (7-18); CALCIUM 8.7 mg/dL (8.5-10.1); CARBON DIOXIDE 25.3 mmol/L (21-32); CHLORIDE 103 mmol/L (98-107); COR CA(FOR HYPOALB) 9.7 mg/dL (8.5-10.1); COR NA(FOR HYPERGLY) 140 mmol/L (136-145); CREATININE 0.88 mg/dL (0.55-1.02); SODIUM 139 mmol/L (136-145); TOTAL PROTEIN 6.8 g/dL (6.4-8.2); eGFR NON BLACK RACES > 60 (>60)
[2018-07-15 07:11] LABS: ANISOCYTOSIS 2+; PLATELET MORPHOLOGY COMMENT NORMAL (NORMAL)
[2018-07-15] MEDS: PHENERGAN INJ 25 MG IV PRN (07:53)
[2018-07-15] MEDS: CIPRO IV 400 MG PREMIX* 400 MG/200 ML IV.SOLN. IV SCH (08:17)
[2018-07-15] MEDS: BENTYL CAP 10 MG PO SCH (08:17)
[2018-07-15] MEDS: NORCO 10/325 TAB PO SCH (08:18)
[2018-07-15] MEDS: CYMBALTA PO SCH (08:18)
[2018-07-15] MEDS: NEOSPORIN OINT TOP SCH (08:35)
[2018-07-15] MEDS: PEPCID 20 MG IV PREMIX* 20 MG/50 ML BAG IV SCH (09:12)
[2018-07-15] MEDS: PROTONIX INJ 40 MG VIAL IVP SCH (09:12)
[2018-07-15] MEDS: ZyrTEC TAB 10 MG PO SCH (09:13)
[2018-07-15] MEDS: SINGULAIR TAB 10 MG PO SCH (09:13)
[2018-07-15 12:37] VITALS: BP 157/89
--- NOTE | 2018-08-17 20:25 | DR.CARTERD ---
- Discharge Summary for: Discharge Summary for Date of:: 07/15/18 - Admission Date Date of Admission: 07/12/18 - Admission Diagnoses Admission Diagnosis: (1) Abdominal pain (2) Colitis - Discharge Date Discharge Date: 07/15/18 - Discharge Diagnoses Discharge Diagnosis: (1) Abdominal pain (2) Ulcerative Colitis - Hospital Course Hospital Course: Day one, Ms. Zarate presented to the hospital as a direct admission after being seen in the office for a hospital follow up. Patient was recently discharged from the hospital on Thursday for treatment of gastroenteritis. On arrival to office patient reported worsening in symptoms and continued diarrhea, nausea, vomiting and abdominal pain. Patient with additional complaints of headache. Patient admitted to the hospital as observation for further evaluation and treatment. An abdomen and pelvis CT was obtained which revealed diffuse wall thickening of the descending colon with a very smooth and ahaustral appearance of the sigmoid colon, findings may indicate colitis. Patient started on IV fluids at 125ml/hr with pain and nausea control. Medical History: Hypertension, Bronchitis, Pneumonia, Gerd, UTIs, Kidney Stones, Endometriosis. Medications: Bentyl 20mg po QID, Pepcid 20mg IV Q12hr, Demerol 25mg IV Q4hr PRN, Protonix 25mg IV Q4hr PRN, NS @125ml/hr. Abnormal Labs: WBC 12.2, MCV 75.3, MCH 24.8, MCHC 32.9, RDW 31.9, Plt Count 457, CRP 10.60, Albumin 3.2, A/G Ratio 0.9. Urinalysis: Brown, Hazy, Protein 1+, Ketones 2+, Occult Blood 1+, Urobilinogen 1+, Leuk Est 1+, RBC 3-5, WBC 3-5, Sediment 2+, Bacteria 2+. Stool Occult Blood Positive, Stool White Cells Positive. Abdomen/Pelvis CT: Diffuse wall thickening of the descending colon with a very smooth and ahaustral appearance of the sigmoid colon. Findings may indicate colitis. Endoscopic evaluation of these regions is suggested, when clinically feasible. No evidence of bowel obstruction or perforation. 3 cm simple cyst of the right ovary. Day two, patient continued with complaints of diffuse abdominal pain and diarrhea. On examination, abdomen was round, soft, and noted with increased bowel sounds throughout. Stools specimen collected on admission noted positive for occult blood and white cells. An additional stool specimen collected for c- diff which was noted negative. Dr. Holman consulted with patient for possible colonoscopy. He noted the patient was having loose, bloody, bowel movements on and off for the past ten days. The patient was seen in the office with nausea, vomiting, and diarrhea. She was treated accordingly and was placed on Flagyl and other medication for the nausea and diarrhea without improvement. It seemed that the patient was having active ulcerative colitis with abdominal pain for the past two weeks with bloody bowel movements. We continued her home medications. We continued with IV fluids and kept her on liquid diet. Col onoscopy was scheduled for the following morning. We started Cipro 40mg IV twice daily, Flagyl 500mg IV every eight hours, and Solu-Medrol 20mg IV twice daily. Medications Added: Restoril 15mg po HS PRN, Zyrtec 10mg po daily, Cipro 400mg IV Q12hr, Cymbalta 30mg po daily, Solu-Medrol 20mg IV Q12hr, Flagyl 500mg IV Q8hr, Singulair 10mg po daily, Citroma 296ml po x1, Neosporin Ointment BID. Abnormal Labs: WBC 10.3, Hgb 11.7, Hct 35.9, MCV 76.0, MCH 24.7, MCHC 32.5, RDW 31.2, BUN 6, Calcium 8.2, Albumin 2.7, A/G Ratio 0.7. Day three, Abd/pelvis CT reported colitis. She was alert and oriented. She continued with complaints of diffuse abdominal pain and diarrhea. A colonoscopy was performed by Dr. Holman and reported: left sided [id number] ulcerative colitis with pseudopolyps; inflammation involving the rectum and sigmoid close to the mid transverse colon. Steroids were increased and patient kept on a liquid diet. Vitals were 98.7-85-18-99%-131/81. Abnormal labs were: WBC INCREASED TO 15.5, BUN 3, GLUCOSE 137, ALBUMIN 3.0. We continued treatment. Day four, patient reported improvement in abdominal pain and diarrhea. She denied nausea or vomiting. WBC decreased to 14.4. On examination, patient had only mild abdominal pain on palpation. Patient was tolerating liquid diet well. Vital signs stable. Labs wnl. We planned for discharge. Instructions for medications and follow up were discussed with patient and family, both voiced understanding. Patient discharged home in stable condition with family. - Discharge Medications Discharge Medications: Home Medication List hydrocodone-acetaminophen [[place]] 1 tab PO Q8H PRN #15 tab 07/15/18 [Rx] Prescriptions: hydrocodone-acetaminophen [[place]] ELDA HOLMAN cetirizine 1 tab PO DAILY 07/07/18 duloxetine 1 tab PO DAILY 07/07/18 ferrous sulfate 325 mg PO DAILY 07/07/18 montelukast 1 tab PO DAILY 07/07/18 temazepam 15 mg PO HS PRN MDD 1 07/08/18 dicyclomine 10 mg PO QID #20 cap 08/03/18 - Discharge Disposition Discharge Disposition: Patient is to follow up with [facility] and Dr. Holman in one week.
== END 2018-07-15 12:40 | disposition home or self-care (01) | DRG 392 ==
LOC: MED/SURG
PROVIDERS: ADMIT Internal Medicine; ATTEND Internal Medicine
DX: R30.0 Dysuria; R10.84 Generalized abdominal pain; K51.80 Other ulcerative colitis without complications; R79.82 Elevated C-reactive protein (CRP); R19.7 Diarrhea, unspecified
CPT/HCPCS: 36415; 74177; 80053; 81001; 82150; 82270; 82378; 83630; 83690; 85025; 85652; 86140; 87045; 87086; 87328; 87329; 87427; 87449; 87493; 87899; A4216; A4222; C9113; S0028; S0030; A4217; G0378; J0744; J2175; J2250; J2550; J2704; J2920; J2930; J7030; J7050; J7120

== ENCOUNTER 2018-10-20 07:55 | Inpatient (IN) ==
[2018-10-20 08:04] VITALS: BMI 29.8
[2018-10-20] MEDS ORDERED: TORADOL 30 MG VIAL IVP ONE (08:28)
[2018-10-20] MEDS ORDERED: NS 1000 ML 1,000 ML IV ONE ×2 (08:28→09:06)
[2018-10-20] MEDS ORDERED: TORADOL 30 MG VIAL ONE ×2 (08:29→09:33)
[2018-10-20] MEDS ORDERED: NS 1000 ML 1,000 ML ONE (08:29)
--- NOTE | 2018-10-20 09:12 | DR.URIAD ---
HPI Time Seen Time Seen by Provider: 10/20/18 08:44 PCP Primary Care Physician: RICK Complaint Chief Complaint Doctors Comments: I agree with statement as written. Chief Complaint:: PT. C/O FLU LIKE SYMPTOMS. PT. STATES SHE HAS HAD A PRODUCTIVE COUGH, DIARRHEA, NAUSEA, CHILLS, CHEST DISCOMFORT, HEADACHE, BODY ACHES. PT. SEEN PCP ON THURSDAY AND WAS GIVEN A SHOT AND PLACED ON Z PACK. Source History Provided: Patient Mode of Arrival Mode of Arrival: Ambulatory Timing Onset of Chief Complaint: 10/20/18 PMH PMH Past Medical History: Yes Past Medical History: Anxiety, Hypertension and Seizures Past Surgical History: Yes Surgical History: Appendectomy, , 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 and 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 Family History History of Family Medical Conditions: Yes Family Medical History: [place] and Hypertension Social History Does patient currently use any type of tobacco product: No Have you used tobacco products in the last 12 months: No Type of Tobacco Use: None Does any household member use tobacco: No Alcohol Use: None Do you use any recreational Drugs:: No Lives With: Family Lives Where: Home infectious screening In the last 2 months have you had wt loss of >10#?: NO Have you had fever, night sweats or hemotysis?: No Have you traveled outside the country in the last 6 months?: No Isolation: Standard PE Vital Signs Vitals: Temperature 100.0 F Pulse Rate [Left Brachial] 117 Pulse Rate 115 Respiratory Rate 20 Blood Pressure [Left Arm] 108/56 Blood Pressure [Right Arm] 157/89 Blood Pressure 139/100 O2 Sat by Pulse Oximetry 97 General Limitations: No Limitations General Appearance: Alert and In No Apparent Distress Head Head Exam: Normal Inspection, Atraumatic and Normocephalic Eyes Eye exam: Normal Appearance, PERRL and EOMI ENT ENT Exam: Normal Exam, Normal Oropharynx and Normal External Ear Exam External Ear Exam: Normal External Inspection and Auricular Hematoma TM/Canal Exam: Bilateral: Normal Nose Exam: Normal Nose Exam (congestion) Nasal Speculum Exam: Bilateral: Normal Mouth Exam: Normal Inspection Throat Exam: Normal Inspection Neck Neck Exam: Normal Inspection and Full ROM Chest Chest Inspection: Normal Inspection and Symmetric Chest Wall Rise Respiratory Respiratory Exam: Normal Lung Sounds Bilat Respiratory Exam: Bilateral: Clear to Auscultation Cardiovascular Cardiovascular Exam: Regular Rate and Normal Rhythm Abdominal Exam Abdominal Exam: Normal Inspection, Normal Bowel Sounds and Soft Back Back Exam: Normal Inspection and Full ROM Neurologic Neurological Exam: Alert, Oriented X3 and CN II-XII Intact Psychiatric Psychiatric Exam: Normal Affect and Normal Mood Skin Skin Exam: Warm, Dry and Intact COURSE Consultation Called: 10:40 Consultation Comments: Dr. Delong agreed to admit for further evaluation and treatment ROR Labs Reviewed Laboratory Results Reviewed?: Yes Result Diagrams: 10/20/18 09:28 10/20/18 13:23 Laboratory: 10/20/18 09:52 Sputum - Expectorated Sputum - Final WBC 14.8 X10^3/uL (3.6-10.0) H 10/20/18 09:28 RBC 4.35 X10^6/uL (3.5-5.4) 10/20/18 09:28 Hgb 13.5 g/dL (12.0-16.0) 10/20/18 09:28 Hct 39.7 % (36.0-47.0) 10/20/18 09:28 MCV 91.2 fL (80.0-100.0) 10/20/18 09:28 MCH 30.9 pg (27.0-34.0) 10/20/18 09:28 MCHC 33.9 g/dL (33.0-35.0) 10/20/18 09:28 RDW 13.6 % (11.6-16.5) 10/20/18 09:28 Plt Count 254 X10^3/uL (150.0-450.0) 10/20/18 09:28 MPV 8.2 fL (7.4-11.0) 10/20/18 09:28 Neut % (Auto) 89.6 % (42.0-75.0) H 10/20/18 09:28 Lymph % (Auto) 7.6 % (21.0-51.0) L 10/20/18 09:28 [place] % (Auto) 2.1 % (0.0-13.0) 10/20/18 09:28 Eos % (Auto) 0.2 % (0.9-2.9) L 10/20/18 09:28 Baso % (Auto) 0.5 % (0.2-1.0) 10/20/18 09:28 Neut # (Auto) 13.3 x10^3/uL (2.2-4.8) H 10/20/18 09:28 Lymph # (Auto) 1.1 X10^3/uL (1.3-2.9) L 10/20/18 09:28 [place] # (Auto) 0.3 x10^3/uL (0.3-0.8) 10/20/18 09:28 Eos # (Auto) 0.0 x10^3/uL (0.0-0.2) 10/20/18 09:28 Baso # (Auto) 0.1 X10^3/uL (0.0-0.1) 10/20/18 09:28 Absolute Nucleated RBC 0.0 /100WBC 10/20/18 09:28 Sodium 138 mmol/L (136-145) 10/20/18 09:28 Corrected Sodium TNP 10/20/18 09:28 Potassium 2.6 mmol/L (3.5-5.1) L* 10/20/18 13:23 Chloride 105 mmol/L (98-107) 10/20/18 09:28 Carbon Dioxide 26.2 mmol/L (21-32) 10/20/18 09:28 BUN 12 mg/dL (7-18) 10/20/18 09:28 Creatinine 0.70 mg/dL (0.55-1.02) 10/20/18 09:28 Est GFR (MDRD) Af Amer > 60 (>60) 10/20/18 09:28 Est GFR (MDRD) Non-Af > 60 (>60) 10/20/18 09:28 Glucose 94 mg/dL (65-99) 10/20/18 09:28 Lactic Acid 1.2 mmol/L (0.4-2.0) 10/20/18 09:47 Calcium 8.6 mg/dL (8.5-10.1) 10/20/18 09:28 Magnesium 1.0 mg/dL (1.7-2.9) L 10/20/18 13:23 Specimen Type Clean catch urine 10/20/18 09:15 Urine Color Yellow (YELLOW) 10/20/18 09:15 Urine Appearance Clear (CLEAR) 10/20/18 09:15 Urine pH 6.5 (5.0 - 8.0) 10/20/18 09:15 Ur Specific [place] 1.015 (1.000-1.030) 10/20/18 09:15 Urine Protein Negative (NEGATIVE) 10/20/18 09:15 Urine Glucose (UA) Negative (NEGATIVE) 10/20/18 09:15 Urine Ketones Negative (NEGATIVE) 10/20/18 09:15 Urine Occult Blood 4+ (NEGATIVE) 10/20/18 09:15 Urine Nitrite Negative (NEGATIVE) 10/20/18 09:15 Urine Bilirubin Negative (NEGATIVE) 10/20/18 09:15 Urine Urobilinogen Normal (NORMAL) 10/20/18 09:15 Ur Leukocyte Esterase Negative (NEGATIVE) 10/20/18 09:15 Urine RBC 5-10 /HPF (NONE SEEN) 10/20/18 09:15 Urine WBC 0-2 /HPF (NONE SEEN) 10/20/18 09:15 Ur Squamous Epith Cells Rare /HPF (NEGATIVE) 10/20/18 09:15 Urine Bacteria Negative /HPF (NEGATIVE) 10/20/18 09:15 Ur Culture Indicated? No/not indicated 10/20/18 09:15 Influenza Type A (PCR) Negative (NEGATIVE) 10/20/18 08:09 Influenza Type B (PCR) Negative (NEGATIVE) 10/20/18 08:09 Other Results Comments: Chest: Right perihilar and basilar infiltrate. Left basilar atelectasis Diagnosis Discharge Problem: Infiltrate of lung present on imaging of chest ADDITIONAL NOTES Additional Notes Additional Notes: Admitted for further treatment
[2018-10-20] MEDS ORDERED: TORADOL 30 MG VIAL IM ONE (09:23)
--- NOTE | 2018-10-20 09:23 | RAD ---
Exam: Portable chest History: 33-year-old female with cough Comparison: Previous chest radiograph from 02/05/2018. Findings: Heart size and pulmonary vasculature within normal limits. Right perihilar and basilar infiltrate is seen. Mild degree of atelectasis is noted at the left base is well. No significant effusion on either side. Bony thorax is unremarkable. Impression: Right perihilar and basilar infiltrate. Left basilar atelectasis Reported By:
[2018-10-20] MEDS ORDERED: PHENERGAN SYRUP PLAIN 6.25MG/5ML PO ONE (09:25)
[2018-10-20 09:36] LABS: BASOPHILS # (AUTO) 0.1 X10^3/uL (0.0-0.1); BASOPHILS % (AUTO) 0.5 % (0.2-1.0); EOSINOPHILS % (AUTO) 0.2 % (0.9-2.9); HEMATOCRIT 39.7 % (36.0-47.0); HEMOGLOBIN 13.5 g/dL (12.0-16.0); LYMPHOCYTES # (AUTO) 1.1 X10^3/uL (1.3-2.9); LYMPHOCYTES % (AUTO) 7.6 % (21.0-51.0); MEAN CORPUSCULAR HEMOGLOBIN 30.9 pg (27.0-34.0); MEAN CORPUSCULAR HGB CONC 33.9 g/dL (33.0-35.0); MEAN CORPUSCULAR VOLUME 91.2 fL (80.0-100.0); MEAN PLATELET VOLUME 8.2 fL (7.4-11.0); MONOCYTES # (AUTO) 0.3 x10^3/uL (0.3-0.8); MONOCYTES % (AUTO) 2.1 % (0.0-13.0); NEUTROPHILS # (AUTO) 13.3 x10^3/uL (2.2-4.8); NEUTROPHILS % (AUTO) 89.6 % (42.0-75.0); PLATELET COUNT 254 X10^3/uL (150.0-450.0); RED BLOOD COUNT 4.35 X10^6/uL (3.5-5.4); RED CELL DISTRIBUTION WIDTH 13.6 % (11.6-16.5); WHITE BLOOD COUNT 14.8 X10^3/uL (3.6-10.0)
[2018-10-20 09:37] LABS: BILIRUBIN,URINE NEGATIVE (NEGATIVE); BLOOD/HEMOGLOBIN,URINE 4+ (NEGATIVE); GLUCOSE, URINE NEGATIVE (NEGATIVE); KETONES,URINE NEGATIVE (NEGATIVE); LEUKOCYTE ESTERASE ,URINE NEGATIVE (NEGATIVE); NITRITES,URINE NEGATIVE (NEGATIVE); PH,URINE 6.5 (5.0 - 8.0); PROTEIN,URINE NEGATIVE (NEGATIVE); UROBILINOGEN,URINE NORMAL (NORMAL)
[2018-10-20 09:45] LABS: BLOOD UREA NITROGEN 12 mg/dL (7-18); CALCIUM 8.6 mg/dL (8.5-10.1); CARBON DIOXIDE 26.2 mmol/L (21-32); CHLORIDE 105 mmol/L (98-107); SODIUM 138 mmol/L (136-145); eGFR NON BLACK RACES > 60 (>60)
[2018-10-20 09:46] LABS: APPEARANCE,URINE CLEAR (CLEAR); BACTERIA,URINE NEGATIVE /HPF (NEGATIVE); COLOR,URINE YELLOW (YELLOW); SQUAMOUS EPITHELIAL CELL,UR RARE /HPF (NEGATIVE)
[2018-10-20] MEDS ORDERED: ROCEPHIN VIAL 1 GRAM IVP ONE (09:49)
[2018-10-20] MEDS ORDERED: ROCEPHIN VIAL 1 GRAM ONE (09:57)
[2018-10-20] MEDS ORDERED: NS 1/2 1000 ML IV 1,000 ML IV ONE (11:39)
[2018-10-20] MEDS: NS 1/2 1000 ML IV 1,000 ML IV SCH (11:46)
[2018-10-20] MEDS ORDERED: PREVNAR 13 IM ONE (12:09)
[2018-10-20] MEDS: DUONEB 0.5 MG/3 MG NEB SCH ×3 (12:21→20:14)
--- NOTE | 2018-10-20 12:24 | RAD ---
HISTORY: Right-side pain Study: Abdominal series with frontal chest Comparison: 09/29/2018. Technique: KUB and upright views of the abdomen are provided as well as a frontal view of the chest Findings: Trachea is midline. Heart size is normal. Since the prior study, fairly dense infiltrates have developed involving the right middle and lower lobe regions to a lesser extent the left lower lobe. Upper lung zones are clear. No pleural fluid or pneumothorax is seen. Osseous structures are intact There is gaseous distention of small bowel loops present in the left abdomen. Air and stool present throughout the colon. No bowel obstruction or perforation is seen. There is no evidence of opaque stone. There are surgical clips from cholecystectomy. There is a very gentle scoliosis in the upper lumbar region. IMPRESSION: Interval development of bilateral infiltrates, more pronounced in right middle and lower lobe regions with a small amount in the left lower lobe. Mild small bowel ileus. No evidence of bowel obstruction or perforation is seen. Reported By:
[2018-10-20] MEDS ORDERED: DUONEB 0.5 MG/3 MG NEB SCH (13:00)
[2018-10-20] MEDS: ROBITUSSIN DM PO SCH ×3 (13:15→20:46)
[2018-10-20] MEDS: BENTYL CAP 10 MG PO SCH ×3 (13:15→20:46)
[2018-10-20] MEDS ORDERED: POTASSIUM CHL 40 MEQ/NS 0.45% 500 ML IV PRN (14:01)
[2018-10-20] MEDS ORDERED: MICRO K EXTEN CAP 10 MEQ PO PRN (14:01)
[2018-10-20] MEDS ORDERED: POTASSIUM CHLORIDE LIQ 20 MEQ UDC PO PRN (14:01)
[2018-10-20] MEDS ORDERED: KLOR-CON PO PRN (14:01)
[2018-10-20] MEDS ORDERED: K-RIDER 10 MEQ/NS 100 ML 10 MEQ/100 ML BAG IV PRN (14:01)
[2018-10-20] MEDS ORDERED: POTASSIUM CHL 60 MEQ/NS 0.45% 500 ML IV PRN (14:01)
[2018-10-20] MEDS ORDERED: POTASSIUM CHLORIDE LIQ 20 MEQ UDC ONE (14:05)
[2018-10-20] MEDS ORDERED: MAGNESIUM SULFATE 1 GRAM/100 mL PREMIX 1 G/100 ML BAG IV ONE (14:21)
[2018-10-20] MEDS: MAGNESIUM SULFATE 1 GRAM/100 mL PREMIX 1 GM/100 ML BAG IV PRN ×6 (14:27→20:04)
[2018-10-20] MEDS: RESTORIL CAP 15 MG PO PRN (20:46)
[2018-10-20] MEDS: VIBRAMYCIN 100 MG in NS 100 ML IV + SPIKE MINIBAG* 100 ML IV SCH (20:46)
[2018-10-20] MEDS: PROTONIX TAB 40 MG PO SCH (20:47)
[2018-10-20] MEDS: MESALAMINE 1.2 GM PO SCH (20:47)
[2018-10-21] MEDS: NS 1/2 1000 ML IV 1,000 ML IV SCH ×3 (00:43→15:44)
[2018-10-21] MEDS: DUONEB 0.5 MG/3 MG NEB SCH ×6 (01:03→21:15)
[2018-10-21 06:09] LABS: BASOPHILS # (AUTO) 0.1 X10^3/uL (0.0-0.1); BASOPHILS % (AUTO) 0.5 % (0.2-1.0); EOSINOPHILS # (AUTO) 0.1 x10^3/uL (0.0-0.2); EOSINOPHILS % (AUTO) 0.2 % (0.9-2.9); HEMATOCRIT 37.5 % (36.0-47.0); HEMOGLOBIN 12.8 g/dL (12.0-16.0); LYMPHOCYTES # (AUTO) 1.8 X10^3/uL (1.3-2.9); LYMPHOCYTES % (AUTO) 6.1 % (21.0-51.0); MEAN CORPUSCULAR HEMOGLOBIN 31.7 pg (27.0-34.0); MEAN CORPUSCULAR HGB CONC 34.1 g/dL (33.0-35.0); MEAN PLATELET VOLUME 9.4 fL (7.4-11.0); MONOCYTES % (AUTO) 3.4 % (0.0-13.0); NEUTROPHILS # (AUTO) 26.6 x10^3/uL (2.2-4.8); NEUTROPHILS % (AUTO) 89.8 % (42.0-75.0); PLATELET COUNT 323 X10^3/uL (150.0-450.0); RED BLOOD COUNT 4.03 X10^6/uL (3.5-5.4); RED CELL DISTRIBUTION WIDTH 13.8 % (11.6-16.5)
[2018-10-21 06:13] LABS: ALANINE AMINOTRANSFERASE 20 Units/L (12-78); ALBUMIN 2.8 g/dL (3.4-5.0); ALKALINE PHOSPHATASE 59 Units/L (46-116); ASPARTATE AMINO TRANSFERASE 11 Units/L (15-37); BLOOD UREA NITROGEN 9 mg/dL (7-18); CALCIUM 8.4 mg/dL (8.5-10.1); CARBON DIOXIDE 23.9 mmol/L (21-32); CHLORIDE 103 mmol/L (98-107); COR CA(FOR HYPOALB) 9.4 mg/dL (8.5-10.1); COR NA(FOR HYPERGLY) 138 mmol/L (136-145); CREATININE 0.82 mg/dL (0.55-1.02); MAGNESIUM 2.1 mg/dL (1.7-2.9); SODIUM 137 mmol/L (136-145); TOTAL PROTEIN 6.4 g/dL (6.4-8.2); eGFR NON BLACK RACES > 60 (>60)
[2018-10-21 06:17] LABS: WHITE BLOOD COUNT 29.6 X10^3/uL (3.6-10.0)
[2018-10-21 07:01] LABS: BAND NEUTROPHILS % 3 % (0-10)
[2018-10-21 07:02] LABS: PLATELET MORPHOLOGY COMMENT NORMAL (NORMAL)
--- NOTE | 2018-10-21 07:09 | RAD ---
HISTORY: Cough Study: Chest AP portable Comparison: 10/20/2018 Findings: The heart is enlarged. No congestive heart failure is noted. Right perihilar infiltrate is again identified not significantly different from the prior examination. The remainder of the lung aggarwal are clear. Follow-up until complete resolution is recommended. No pleural effusions are identified. The bony thorax is unremarkable. IMPRESSION: No change right perihilar infiltrate Reported By:
[2018-10-21] MEDS ORDERED: NS 1/2 1000 ML IV 1,000 ML IV ONE ×2 (08:20→15:34)
[2018-10-21] MEDS: BENTYL CAP 10 MG PO SCH (08:22)
[2018-10-21] MEDS: CYMBALTA PO SCH (08:23)
[2018-10-21] MEDS: PROTONIX TAB 40 MG PO SCH ×2 (08:24→21:36)
[2018-10-21] MEDS: MESALAMINE 1.2 GM PO SCH ×2 (08:24→22:12)
[2018-10-21] MEDS: VIBRAMYCIN 100 MG in NS 100 ML IV + SPIKE MINIBAG* 100 ML IV SCH ×2 (08:25→21:36)
[2018-10-21] MEDS: ROBITUSSIN DM PO SCH ×4 (08:25→21:36)
[2018-10-21] MEDS: ZyrTEC TAB 10 MG PO SCH (08:25)
[2018-10-21] MEDS: SINGULAIR TAB 10 MG PO SCH (08:25)
[2018-10-21] MEDS: K-DUR TAB 20 MEQ PO PRN (08:26)
[2018-10-21] MEDS ORDERED: K-LYTE EFFERVESCENT PO SCH (09:00)
[2018-10-21] MEDS ORDERED: LINZESS PO STA (09:28)
[2018-10-21] MEDS ORDERED: MOTRIN TAB 800 MG PO PRN (09:40)
[2018-10-21] MEDS ORDERED: LINZESS PO ONE (09:48)
[2018-10-21] MEDS ORDERED: COLACE CAP 100 MG PO ONE (09:48)
[2018-10-21] MEDS ORDERED: MOTRIN TAB 800 MG PO ONE (09:48)
[2018-10-21] MEDS ORDERED: MERREM VIAL ONE (09:48)
[2018-10-21] MEDS: COLACE CAP 100 MG PO SCH ×2 (09:59→21:36)
[2018-10-21] MEDS ORDERED: MERREM VIAL 500 MG in NS 100 ML IV + SPIKE MINIBAG* 100 ML IV SCH (10:00)
[2018-10-21] MEDS: MERREM VIAL IVP SCH ×3 (10:00→21:36)
[2018-10-21] MEDS ORDERED: TORADOL 30 MG VIAL IVP PRN (10:11)
[2018-10-21] MEDS ORDERED: TORADOL 30 MG VIAL ONE (10:17)
--- NOTE | 2018-10-21 10:41 | CT ---
HISTORY: Fever and headache with leukocytosis Study: CT paranasal sinuses without contrast Comparison: None Technique: Multiple axial images of the paranasal sinuses were obtained without the administration of IV contrast. Coronal and sagittal reformats were performed and reviewed. Findings: Chronic 0 cell thickening of the right maxillary sinus is observed with minimal amount of fluid layering within the dependent portion of the maxillary sinus. Layering fluid measures 9 mm in greatest thickness. A minimal amount chronic mucosal thickening within the left maxillary sinus is noted. Obstruction of the right ostiomeatal unit is noted secondary to mucosal thickening. Likewise, minimal inflammatory changes within the left ostiomeatal unit is observed as well. Chronic sinus disease of the left sphenoid sinus is noted. The anterior posterior ethmoid air cells appear well aerated with minimal mucosal thickening. The frontal sinuses are unremarkable. The frontal recesses appear patent. The nasal septum is midline. Visualized portions of the posterior fossa and intracranial structures are unremarkable as well. IMPRESSION: Chronic fissural thickening most noted within the right maxillary sinus with a minimal amount of fluid layering within the sinus to suggest acute sinusitis. Reported By:
[2018-10-21] MEDS: TORADOL 30 MG VIAL IVP PRN ×2 (15:45→21:45)
[2018-10-21] MEDS: RESTORIL CAP 15 MG PO PRN (21:36)
[2018-10-22] MEDS: DUONEB 0.5 MG/3 MG NEB SCH ×6 (00:50→21:40)
[2018-10-22] MEDS: TORADOL 30 MG VIAL IVP PRN ×4 (03:50→22:12)
[2018-10-22] MEDS: NS 1/2 1000 ML IV 1,000 ML IV SCH ×4 (05:02→22:15)
[2018-10-22] MEDS: MERREM VIAL IVP SCH ×3 (05:03→22:14)
[2018-10-22 05:25] LABS: BASOPHILS # (AUTO) 0.1 X10^3/uL (0.0-0.1); BASOPHILS % (AUTO) 0.4 % (0.2-1.0); EOSINOPHILS # (AUTO) 0.3 x10^3/uL (0.0-0.2); EOSINOPHILS % (AUTO) 1.4 % (0.9-2.9); HEMATOCRIT 37.6 % (36.0-47.0); HEMOGLOBIN 12.9 g/dL (12.0-16.0); LYMPHOCYTES # (AUTO) 1.6 X10^3/uL (1.3-2.9); LYMPHOCYTES % (AUTO) 8.5 % (21.0-51.0); MEAN CORPUSCULAR HEMOGLOBIN 31.7 pg (27.0-34.0); MEAN CORPUSCULAR HGB CONC 34.2 g/dL (33.0-35.0); MEAN CORPUSCULAR VOLUME 92.5 fL (80.0-100.0); MEAN PLATELET VOLUME 8.8 fL (7.4-11.0); MONOCYTES # (AUTO) 0.6 x10^3/uL (0.3-0.8); MONOCYTES % (AUTO) 3.2 % (0.0-13.0); NEUTROPHILS # (AUTO) 16.6 x10^3/uL (2.2-4.8); NEUTROPHILS % (AUTO) 86.5 % (42.0-75.0); PLATELET COUNT 311 X10^3/uL (150.0-450.0); RED BLOOD COUNT 4.06 X10^6/uL (3.5-5.4); RED CELL DISTRIBUTION WIDTH 14.1 % (11.6-16.5); WHITE BLOOD COUNT 19.1 X10^3/uL (3.6-10.0)
[2018-10-22 05:41] LABS: ALANINE AMINOTRANSFERASE 20 Units/L (12-78); ALBUMIN 2.6 g/dL (3.4-5.0); ALKALINE PHOSPHATASE 72 Units/L (46-116); ASPARTATE AMINO TRANSFERASE 13 Units/L (15-37); BLOOD UREA NITROGEN 7 mg/dL (7-18); CALCIUM 8.6 mg/dL (8.5-10.1); CARBON DIOXIDE 23.8 mmol/L (21-32); CHLORIDE 106 mmol/L (98-107); COR CA(FOR HYPOALB) 9.7 mg/dL (8.5-10.1); CREATININE 0.72 mg/dL (0.55-1.02); SODIUM 140 mmol/L (136-145); TOTAL PROTEIN 6.5 g/dL (6.4-8.2); eGFR NON BLACK RACES > 60 (>60)
[2018-10-22 05:56] LABS: PLATELET MORPHOLOGY COMMENT NORMAL (NORMAL)
[2018-10-22] MEDS: K-DUR TAB 20 MEQ PO PRN (06:21)
--- NOTE | 2018-10-22 06:30 | RAD ---
HISTORY: Follow-up pneumonia Study: Chest AP portable Comparison: 10/21/2018 Findings: The heart is minimally enlarged. No congestive heart failure is noted. Right perihilar infiltrate and subsegmental atelectasis is unchanged from the prior examination. The remainder of the lung aggarwal are clear. No pleural effusions are identified. The bony thorax is unremarkable. IMPRESSION: No change right perihilar infiltrate and subsegmental atelectasis Reported By:
[2018-10-22] MEDS: VIBRAMYCIN 100 MG in NS 100 ML IV + SPIKE MINIBAG* 100 ML IV SCH ×2 (08:55→22:14)
[2018-10-22] MEDS: ROBITUSSIN DM PO SCH ×4 (08:56→22:14)
[2018-10-22] MEDS: COLACE CAP 100 MG PO SCH ×2 (08:56→22:14)
[2018-10-22] MEDS: PROTONIX TAB 40 MG PO SCH ×2 (08:57→22:15)
[2018-10-22] MEDS: CYMBALTA PO SCH (08:57)
[2018-10-22] MEDS: ZyrTEC TAB 10 MG PO SCH (08:57)
[2018-10-22] MEDS: SINGULAIR TAB 10 MG PO SCH (08:57)
[2018-10-22] MEDS ORDERED: LINZESS PO SCH (09:00)
[2018-10-22] MEDS: MESALAMINE 1.2 GM PO SCH ×2 (09:00→22:15)
[2018-10-22] MEDS ORDERED: NS 1/2 1000 ML IV 1,000 ML IV ONE (17:55)
[2018-10-22] MEDS: RESTORIL CAP 15 MG PO PRN (22:14)
[2018-10-23] MEDS: DUONEB 0.5 MG/3 MG NEB SCH ×6 (01:57→20:15)
[2018-10-23] MEDS: TORADOL 30 MG VIAL IVP PRN ×4 (04:05→21:59)
[2018-10-23] MEDS ORDERED: NS 1/2 1000 ML IV 1,000 ML IV ONE (05:27)
[2018-10-23] MEDS: MERREM VIAL IVP SCH ×3 (05:35→21:58)
[2018-10-23] MEDS: NS 1/2 1000 ML IV 1,000 ML IV SCH ×2 (05:52→09:48)
[2018-10-23] MEDS: VIBRAMYCIN 100 MG in NS 100 ML IV + SPIKE MINIBAG* 100 ML IV SCH ×2 (08:15→21:58)
[2018-10-23] MEDS: ROBITUSSIN DM PO SCH ×4 (08:16→21:58)
[2018-10-23] MEDS: COLACE CAP 100 MG PO SCH ×2 (08:16→21:58)
[2018-10-23] MEDS: PROTONIX TAB 40 MG PO SCH ×2 (08:16→21:58)
[2018-10-23] MEDS: SINGULAIR TAB 10 MG PO SCH (08:16)
[2018-10-23] MEDS: ZyrTEC TAB 10 MG PO SCH (08:16)
[2018-10-23] MEDS: MESALAMINE 1.2 GM PO SCH ×2 (08:22→21:56)
[2018-10-23] MEDS: CYMBALTA PO SCH (08:22)
[2018-10-23] MEDS ORDERED: OFIRMEV IV 1000 MG VIAL 1,000 MG/100 ML VIAL IV PRN (10:03)
[2018-10-23 11:52] LABS: BASOPHILS # (AUTO) 0.1 X10^3/uL (0.0-0.1); BASOPHILS % (AUTO) 0.7 % (0.2-1.0); EOSINOPHILS # (AUTO) 0.5 x10^3/uL (0.0-0.2); EOSINOPHILS % (AUTO) 3.6 % (0.9-2.9); HEMATOCRIT 41.2 % (36.0-47.0); HEMOGLOBIN 14.3 g/dL (12.0-16.0); LYMPHOCYTES # (AUTO) 1.8 X10^3/uL (1.3-2.9); MEAN CORPUSCULAR HEMOGLOBIN 31.8 pg (27.0-34.0); MEAN CORPUSCULAR HGB CONC 34.6 g/dL (33.0-35.0); MEAN CORPUSCULAR VOLUME 91.9 fL (80.0-100.0); MEAN PLATELET VOLUME 8.4 fL (7.4-11.0); MONOCYTES # (AUTO) 0.5 x10^3/uL (0.3-0.8); MONOCYTES % (AUTO) 3.9 % (0.0-13.0); NEUTROPHILS # (AUTO) 9.7 x10^3/uL (2.2-4.8); NEUTROPHILS % (AUTO) 77.8 % (42.0-75.0); PLATELET COUNT 434 X10^3/uL (150.0-450.0); RED BLOOD COUNT 4.48 X10^6/uL (3.5-5.4); WHITE BLOOD COUNT 12.5 X10^3/uL (3.6-10.0)
[2018-10-23 12:03] LABS: PLATELET MORPHOLOGY COMMENT NORMAL (NORMAL)
[2018-10-23 12:24] LABS: ALANINE AMINOTRANSFERASE 22 Units/L (12-78); ALBUMIN 3.1 g/dL (3.4-5.0); ALKALINE PHOSPHATASE 94 Units/L (46-116); ASPARTATE AMINO TRANSFERASE 14 Units/L (15-37); BLOOD UREA NITROGEN 6 mg/dL (7-18); CALCIUM 9.4 mg/dL (8.5-10.1); CARBON DIOXIDE 25.3 mmol/L (21-32); CHLORIDE 105 mmol/L (98-107); COR CA(FOR HYPOALB) 10.1 mg/dL (8.5-10.1); CREATININE 0.75 mg/dL (0.55-1.02); SODIUM 140 mmol/L (136-145); TOTAL PROTEIN 7.9 g/dL (6.4-8.2); eGFR NON BLACK RACES > 60 (>60)
[2018-10-23] MEDS ORDERED: NS 1/2 + KCL 20 MEQ/L 1,000 ML IV SCH (13:00)
[2018-10-23] MEDS ORDERED: NS 1/2 1000 ML IV 1,000 ML IV SCH (15:00)
[2018-10-23] MEDS ORDERED: RESTORIL CAP 30 MG PO PRN (21:44)
[2018-10-23] MEDS ORDERED: NS 100 ML IV + SPIKE MINIBAG* 0 ML IV ONE (21:53)
[2018-10-24] MEDS: DUONEB 0.5 MG/3 MG NEB SCH ×5 (01:40→12:11)
[2018-10-24] MEDS: TORADOL 30 MG VIAL IVP PRN ×2 (04:51→11:11)
[2018-10-24] MEDS: MERREM VIAL IVP SCH ×2 (05:06→14:09)
[2018-10-24 05:18] LABS: BASOPHILS # (AUTO) 0.1 X10^3/uL (0.0-0.1); BASOPHILS % (AUTO) 1.6 % (0.2-1.0); EOSINOPHILS # (AUTO) 0.7 x10^3/uL (0.0-0.2); EOSINOPHILS % (AUTO) 9.7 % (0.9-2.9); HEMATOCRIT 39.6 % (36.0-47.0); HEMOGLOBIN 13.5 g/dL (12.0-16.0); LYMPHOCYTES # (AUTO) 2.5 X10^3/uL (1.3-2.9); LYMPHOCYTES % (AUTO) 36.1 % (21.0-51.0); MEAN CORPUSCULAR HEMOGLOBIN 31.9 pg (27.0-34.0); MEAN CORPUSCULAR VOLUME 93.7 fL (80.0-100.0); MEAN PLATELET VOLUME 8.5 fL (7.4-11.0); MONOCYTES # (AUTO) 0.7 x10^3/uL (0.3-0.8); MONOCYTES % (AUTO) 9.5 % (0.0-13.0); NEUTROPHILS # (AUTO) 2.9 x10^3/uL (2.2-4.8); NEUTROPHILS % (AUTO) 43.1 % (42.0-75.0); PLATELET COUNT 429 X10^3/uL (150.0-450.0); RED BLOOD COUNT 4.22 X10^6/uL (3.5-5.4); RED CELL DISTRIBUTION WIDTH 14.1 % (11.6-16.5); WHITE BLOOD COUNT 6.8 X10^3/uL (3.6-10.0)
[2018-10-24 05:32] LABS: ALANINE AMINOTRANSFERASE 20 Units/L (12-78); ALBUMIN 2.8 g/dL (3.4-5.0); ALKALINE PHOSPHATASE 91 Units/L (46-116); ASPARTATE AMINO TRANSFERASE 16 Units/L (15-37); BLOOD UREA NITROGEN 9 mg/dL (7-18); CALCIUM 8.8 mg/dL (8.5-10.1); CARBON DIOXIDE 24.1 mmol/L (21-32); CHLORIDE 106 mmol/L (98-107); COR CA(FOR HYPOALB) 9.8 mg/dL (8.5-10.1); CREATININE 0.75 mg/dL (0.55-1.02); SODIUM 140 mmol/L (136-145); eGFR NON BLACK RACES > 60 (>60)
--- NOTE | 2018-10-24 07:13 | RAD ---
Examination: Chest, PA and lateral views History: Pneumonia Comparison 10/22/2018 Findings: Continued normal heart size with clear left chest. There is significant additional improvement in the right-sided infiltrate. There is now residual thickening of the minor fissure. No new abnormality is identified. Impression: Additional improvement in the right sided pneumonia with residual changes as noted. Continued follow-up suggested to determine further resolution or possible postinflammatory scarring. Reported By:
[2018-10-24] MEDS: VIBRAMYCIN 100 MG in NS 100 ML IV + SPIKE MINIBAG* 100 ML IV SCH (08:32)
[2018-10-24] MEDS: ROBITUSSIN DM PO SCH ×2 (08:32→14:09)
[2018-10-24] MEDS: SINGULAIR TAB 10 MG PO SCH (08:33)
[2018-10-24] MEDS: ZyrTEC TAB 10 MG PO SCH (08:33)
[2018-10-24] MEDS: COLACE CAP 100 MG PO SCH (08:33)
[2018-10-24] MEDS: PROTONIX TAB 40 MG PO SCH (08:33)
[2018-10-24] MEDS: MESALAMINE 1.2 GM PO SCH ×2 (08:35→08:37)
[2018-10-24] MEDS: CYMBALTA PO SCH (08:35)
[2018-10-24 11:50] VITALS: BP 141/85
== END 2018-10-24 14:20 | disposition home or self-care (01) | DRG 194 ==
LOC: ER 08:00 → MED/SURG 10:51
PROVIDERS: ADMIT Obstetrics & Gynecology Obstetrics; ATTEND Obstetrics & Gynecology Obstetrics
DX: Z23 Encounter for immunization; E83.42 Hypomagnesemia; R53.1 Weakness; J18.8 Other pneumonia, unspecified organism; G40.89 Other seizures; I10 Essential (primary) hypertension; E87.6 Hypokalemia; K59.09 Other constipation; E86.0 Dehydration; R51 Headache
CPT/HCPCS: 36415; 70486; 71010; 71020; 71045; 71046; 74022; 80048; 80053; 81001; 83605; 83735; 84132; 85025; 87040; 87070; 87205; 87502; 94640; 94760; 96365; 96374; 96375; 99283; 99284; A4222; J0696; J1885; J2185; J3475; J3490; J7030; J7050; J7620; J8499

== ENCOUNTER 2020-10-08 06:05 | Inpatient (IN) ==
[2020-10-08] MEDS ORDERED: ANCEF 1 GRAM IV PREMIX* 1 G/50 ML BAG IV ONE (06:42)
[2020-10-08] MEDS ORDERED: LR 1000 ML IV 1,000 ML IV ONE (06:42)
[2020-10-08] MEDS ORDERED: FENTANYL INJ 250 mcg ONE (06:45)
[2020-10-08] MEDS ORDERED: DILAUDID INJ ONE ×5 (06:45→10:15)
[2020-10-08] MEDS ORDERED: D5 1/2 NS 1000 ML 1,000 ML IV SCH (06:46)
[2020-10-08] MEDS ORDERED: ANCEF VIAL 1 GRAM IVP ONE (06:46)
[2020-10-08] MEDS ORDERED: BETADINE SOLN ONE (06:59)
[2020-10-08] MEDS ORDERED: ProvayBLUE 0.5% ONE (06:59)
[2020-10-08 07:27] VITALS: BMI 26.6
[2020-10-08] MEDS ORDERED: DIPRIVAN VIAL ONE (07:56)
[2020-10-08] MEDS ORDERED: VERSED ONE (07:56)
[2020-10-08] MEDS ORDERED: DECADRON INJ ONE (07:56)
[2020-10-08] MEDS ORDERED: LTA KIT LIDOCAINE 4% ONE (07:56)
[2020-10-08] MEDS ORDERED: NEOSTIGMINE INJ ONE (07:56)
[2020-10-08] MEDS ORDERED: XYLOCAINE 2 % (PLAIN) ONE (07:56)
[2020-10-08] MEDS ORDERED: QUELICIN (OR ANECTINE) ONE (07:56)
[2020-10-08] MEDS ORDERED: SUPRANE ONE (07:56)
[2020-10-08] MEDS ORDERED: NORCURON INJ 10 MG VIAL ONE (07:56)
[2020-10-08] MEDS ORDERED: ROBINUL ONE (07:56)
[2020-10-08] MEDS ORDERED: ZOFRAN INJ 4 MG VIAL ONE (07:56)
[2020-10-08] MEDS ORDERED: TORADOL 30 MG VIAL ONE (07:56)
[2020-10-08] MEDS ORDERED: FENTANYL INJ 100 mcg ONE (08:26)
[2020-10-08] MEDS ORDERED: NS 1000 ML 1,000 ML ONE (08:37)
[2020-10-08] MEDS ORDERED: ZOFRAN INJ 4 MG VIAL IVP PRN (09:57)
[2020-10-08] MEDS ORDERED: BENADRYL INJ 50 MG VIAL IVP PRN (09:57)
[2020-10-08] MEDS ORDERED: DILAUDID INJ IVP PRN (09:57)
[2020-10-08] MEDS ORDERED: REGLAN INJ 10 MG VIAL IVP PRN (09:57)
[2020-10-08] MEDS ORDERED: PHENERGAN INJ 25 MG IM PRN (09:57)
[2020-10-08] MEDS ORDERED: TORADOL 30 MG VIAL IVP PRN (10:29)
[2020-10-08] MEDS: ZOFRAN INJ 4 MG VIAL IVP PRN ×2 (10:55→17:48)
[2020-10-08] MEDS: MORPHINE SULFATE PCA 30 MG IVP PRN ×3 (11:06→22:05)
[2020-10-08] MEDS: D5 1/2 NS 1000 ML 1,000 ML IV SCH ×4 (11:31→20:40)
[2020-10-08] MEDS: BENADRYL INJ 50 MG VIAL IVP PRN ×3 (13:31→21:48)
[2020-10-08] MEDS: PERCOCET TAB 5/325 MG PO PRN ×2 (14:19→19:16)
[2020-10-09] MEDS: BENADRYL INJ 50 MG VIAL IVP PRN ×4 (02:31→18:09)
[2020-10-09] MEDS: D5 1/2 NS 1000 ML 1,000 ML IV SCH (02:44)
[2020-10-09] MEDS: ZOFRAN INJ 4 MG VIAL IVP PRN ×4 (02:45→18:09)
[2020-10-09] MEDS: PERCOCET TAB 5/325 MG PO PRN ×4 (05:21→20:30)
[2020-10-09 05:43] LABS: BASOPHILS % (AUTO) 0.4 % (0.2-1.0); EOSINOPHILS # (AUTO) 0.1 x10^3/uL (0.0-0.2); EOSINOPHILS % (AUTO) 0.5 % (0.9-2.9); HEMATOCRIT 25.5 % (36.0-47.0); HEMOGLOBIN 8.7 g/dL (12.0-16.0); LYMPHOCYTES # (AUTO) 2.4 X10^3/uL (1.3-2.9); LYMPHOCYTES % (AUTO) 22.1 % (21.0-51.0); MEAN CORPUSCULAR HEMOGLOBIN 30.5 pg (27.0-34.0); MEAN CORPUSCULAR HGB CONC 34.3 g/dL (33.0-35.0); MEAN PLATELET VOLUME 7.2 fL (7.4-11.0); MONOCYTES % (AUTO) 9.2 % (0.0-13.0); NEUTROPHILS # (AUTO) 7.3 x10^3/uL (2.2-4.8); NEUTROPHILS % (AUTO) 67.8 % (42.0-75.0); PLATELET COUNT 445 X10^3/uL (150.0-450.0); RED BLOOD COUNT 2.87 X10^6/uL (3.5-5.4); RED CELL DISTRIBUTION WIDTH 14.4 % (11.6-16.5); WHITE BLOOD COUNT 10.8 X10^3/uL (3.6-10.0)
[2020-10-09 06:20] LABS: BLOOD UREA NITROGEN 8 mg/dL (7-18); CALCIUM 8.5 mg/dL (8.5-10.1); CARBON DIOXIDE 24.8 mmol/L (21-32); CHLORIDE 107 mmol/L (98-107); COR NA(FOR HYPERGLY) 141 mmol/L (136-145); CREATININE 0.79 mg/dL (0.55-1.02); SODIUM 141 mmol/L (136-145); eGFR NON BLACK RACES > 60 (>60)
[2020-10-09] MEDS ORDERED: MOTRIN TAB 800 MG PO PRN (07:35)
[2020-10-09] MEDS ORDERED: AMBIEN PO PRN (07:35)
[2020-10-09] MEDS ORDERED: MYLICON TAB 80 MG CHEW PO PRN (07:35)
[2020-10-09] MEDS: ESTRACE PO SCH (09:15)
[2020-10-09] MEDS: COLACE CAP 100 MG PO SCH ×2 (09:15→20:46)
[2020-10-09] MEDS: BACTROBAN TOPICAL OINT TOP SCH ×2 (16:03→22:37)
[2020-10-09] MEDS: FERROUS GLUCONATE PO SCH (18:08)
[2020-10-10] MEDS: PERCOCET TAB 5/325 MG PO PRN ×2 (00:35→04:30)
[2020-10-10] MEDS: BENADRYL INJ 50 MG VIAL IVP PRN ×2 (00:35→06:44)
[2020-10-10] MEDS: BACTROBAN TOPICAL OINT TOP SCH (06:00)
[2020-10-10] MEDS: FERROUS GLUCONATE PO SCH (06:27)
[2020-10-10] MEDS: ZOFRAN INJ 4 MG VIAL IVP PRN (06:44)
[2020-10-10] MEDS: ESTRACE PO SCH (08:14)
[2020-10-10] MEDS: COLACE CAP 100 MG PO SCH (08:14)
[2020-10-10] MEDS ORDERED: MORPHINE SULFATE INJ 2 MG INJ IVP ONE (08:28)
[2020-10-10 09:37] VITALS: BP 140/80
== END 2020-10-10 10:30 | disposition home or self-care (01) | DRG 743 ==
LOC: MED/SURG 06:05
PROVIDERS: ADMIT Specialist; ATTEND Specialist

== ENCOUNTER 2024-09-27 11:37 | Observation (INO) ==
[2024-09-27] MEDS: MORPHINE SULFATE INJ 2 MG INJ IVP PRN (13:48)
[2024-09-27] MEDS: D5 1/2 NS 1,000 ML 1,000 ML IV SCH (13:49)
[2024-09-27] MEDS: FLAGYL IV PREMIX 500 MG BAG 500 MG/100 ML BAG IV SCH (13:49)
[2024-09-27 14:14] LABS: BASOPHILS # (AUTO) 0.1 X10^3/uL (0.0-0.1); BASOPHILS % (AUTO) 0.9 % (0.2-1.0); EOSINOPHILS # (AUTO) 0.1 x10^3/uL (0.0-0.2); EOSINOPHILS % (AUTO) 0.8 % (0.9-2.9); HEMOGLOBIN 13.3 g/dL (12.0-16.0); LYMPHOCYTES # (AUTO) 1.5 X10^3/uL (1.3-2.9); LYMPHOCYTES % (AUTO) 13.1 % (21.0-51.0); MEAN CORPUSCULAR HEMOGLOBIN 22.4 pg (27.0-34.0); MEAN CORPUSCULAR HGB CONC 32.3 g/dL (33.0-35.0); MEAN CORPUSCULAR VOLUME 69.3 fL (80.0-100.0); MEAN PLATELET VOLUME 7.8 fL (7.4-11.0); MONOCYTES # (AUTO) 0.3 x10^3/uL (0.3-0.8); MONOCYTES % (AUTO) 2.9 % (0.0-13.0); NEUTROPHILS # (AUTO) 9.7 x10^3/uL (2.2-4.8); NEUTROPHILS % (AUTO) 82.3 % (42.0-75.0); PLATELET COUNT 559 X10^3/uL (150.0-450.0); RED BLOOD COUNT 5.92 X10^6/uL (3.5-5.4); RED CELL DISTRIBUTION WIDTH 19.8 % (11.6-16.5); WHITE BLOOD COUNT 11.8 X10^3/uL (3.6-10.0)
[2024-09-27] MEDS: ZOFRAN INJ 4 MG VIAL IVP ONE (14:21)
[2024-09-27 14:26] LABS: ALANINE AMINOTRANSFERASE 32 Units/L (12-78); ALBUMIN 3.8 g/dL (3.4-5.0); ALKALINE PHOSPHATASE 149 Units/L (46-116); ASPARTATE AMINO TRANSFERASE 31 Units/L (15-37); BLOOD UREA NITROGEN 11 mg/dL (7-18); CALCIUM 10.2 mg/dL (8.5-10.1); CARBON DIOXIDE 23.1 mmol/L (21-32); CHLORIDE 101 mmol/L (98-107); COR NA(FOR HYPERGLY) 137 mmol/L (136-145); CREATININE 1.38 mg/dL (0.55-1.02); GLUCOSE 114 mg/dL (65-99); POTASSIUM 4.6 mmol/L (3.5-5.1); SODIUM 137 mmol/L (136-145); TOTAL PROTEIN 9.1 g/dL (6.4-8.2); eGFR NON BLACK RACES 45 (>60)
[2024-09-27 14:36] LABS: ANISOCYTOSIS SLIGHT; HYPOCHROMASIA 1+; PLATELET MORPHOLOGY COMMENT NORMAL (NORMAL)
[2024-09-27 14:37] LABS: MICROCYTOSIS 1+
[2024-09-27 14:40] VITALS: BMI 31.4
[2024-09-27 15:23] LABS: BILIRUBIN,URINE NEGATIVE (NEGATIVE); BLOOD/HEMOGLOBIN,URINE NEGATIVE (NEGATIVE); GLUCOSE, URINE NEGATIVE (NEGATIVE); KETONES,URINE NEGATIVE (NEGATIVE); LEUKOCYTE ESTERASE ,URINE 1+ (NEGATIVE); NITRITES,URINE NEGATIVE (NEGATIVE); PROTEIN,URINE NEGATIVE (NEGATIVE); UROBILINOGEN,URINE NORMAL (NORMAL)
[2024-09-27 15:24] LABS: APPEARANCE,URINE CLEAR (CLEAR); COLOR,URINE YELLOW (YELLOW)
[2024-09-27 15:30] LABS: RBC,URINE NONE SEEN /HPF (0-3)
[2024-09-27 15:31] LABS: BACTERIA,URINE 1+ /HPF (NEGATIVE); SQUAMOUS EPITHELIAL CELL,UR MODERATE /HPF (NEGATIVE)
[2024-09-27] MEDS: SUPREP BOWEL PREP KIT PO SCH (17:32)
[2024-09-28 06:08] LABS: BASOPHILS # (AUTO) 0.1 X10^3/uL (0.0-0.1); BASOPHILS % (AUTO) 1.2 % (0.2-1.0); EOSINOPHILS # (AUTO) 0.3 x10^3/uL (0.0-0.2); HEMATOCRIT 34.9 % (36.0-47.0); HEMOGLOBIN 11.2 g/dL (12.0-16.0); LYMPHOCYTES # (AUTO) 2.4 X10^3/uL (1.3-2.9); LYMPHOCYTES % (AUTO) 27.8 % (21.0-51.0); MEAN CORPUSCULAR HEMOGLOBIN 22.4 pg (27.0-34.0); MEAN CORPUSCULAR HGB CONC 32.1 g/dL (33.0-35.0); MEAN CORPUSCULAR VOLUME 69.6 fL (80.0-100.0); MEAN PLATELET VOLUME 8.5 fL (7.4-11.0); MONOCYTES # (AUTO) 0.7 x10^3/uL (0.3-0.8); MONOCYTES % (AUTO) 8.3 % (0.0-13.0); NEUTROPHILS # (AUTO) 5.1 x10^3/uL (2.2-4.8); NEUTROPHILS % (AUTO) 59.7 % (42.0-75.0); PLATELET COUNT 489 X10^3/uL (150.0-450.0); RED BLOOD COUNT 5.02 X10^6/uL (3.5-5.4); RED CELL DISTRIBUTION WIDTH 20.3 % (11.6-16.5); WHITE BLOOD COUNT 8.5 X10^3/uL (3.6-10.0)
[2024-09-28 06:29] LABS: ALANINE AMINOTRANSFERASE 27 Units/L (12-78); ALBUMIN 3.1 g/dL (3.4-5.0); ALKALINE PHOSPHATASE 116 Units/L (46-116); ASPARTATE AMINO TRANSFERASE 25 Units/L (15-37); BLOOD UREA NITROGEN 7 mg/dL (7-18); CALCIUM 8.9 mg/dL (8.5-10.1); CARBON DIOXIDE 26.8 mmol/L (21-32); CHLORIDE 105 mmol/L (98-107); COR CA(FOR HYPOALB) 9.6 mg/dL (8.5-10.1); COR NA(FOR HYPERGLY) 141 mmol/L (136-145); GLUCOSE 111 mg/dL (65-99); MAGNESIUM 1.8 mg/dL (2.0-2.9); POTASSIUM 3.5 mmol/L (3.5-5.1); SODIUM 141 mmol/L (136-145); TOTAL PROTEIN 7.4 g/dL (6.4-8.2); eGFR NON BLACK RACES 59 (>60)
[2024-09-28 07:11] LABS: ANISOCYTOSIS 1+; HYPOCHROMASIA 2+; MICROCYTOSIS 1+; PLATELET MORPHOLOGY COMMENT NORMAL (NORMAL)
[2024-09-28] MEDS: DIPRIVAN VIAL 20 ML ONE ×2 (14:54→15:23)
[2024-09-28] MEDS: ZOFRAN INJ 4 MG VIAL ONE (15:02)
[2024-09-28] MEDS ORDERED: SOLU-Medrol 40 MG VIAL IVP SCH (16:55)
[2024-09-28] MEDS: DILAUDID INJ IVP PRN (20:20)
[2024-09-28] MEDS: SOLU-Medrol 40 MG VIAL IVP SCH (21:08)
[2024-09-29 06:19] LABS: BASOPHILS % (AUTO) 0.4 % (0.2-1.0); HEMATOCRIT 34.6 % (36.0-47.0); HEMOGLOBIN 11.1 g/dL (12.0-16.0); LYMPHOCYTES # (AUTO) 0.7 X10^3/uL (1.3-2.9); LYMPHOCYTES % (AUTO) 7.2 % (21.0-51.0); MEAN CORPUSCULAR HEMOGLOBIN 22.2 pg (27.0-34.0); MEAN CORPUSCULAR HGB CONC 32.1 g/dL (33.0-35.0); MEAN CORPUSCULAR VOLUME 69.2 fL (80.0-100.0); MEAN PLATELET VOLUME 8.6 fL (7.4-11.0); MONOCYTES # (AUTO) 0.1 x10^3/uL (0.3-0.8); MONOCYTES % (AUTO) 0.6 % (0.0-13.0); NEUTROPHILS # (AUTO) 8.6 x10^3/uL (2.2-4.8); NEUTROPHILS % (AUTO) 91.8 % (42.0-75.0); PLATELET COUNT 505 X10^3/uL (150.0-450.0); RED CELL DISTRIBUTION WIDTH 19.9 % (11.6-16.5); WHITE BLOOD COUNT 9.4 X10^3/uL (3.6-10.0)
[2024-09-29 06:28] LABS: ALANINE AMINOTRANSFERASE 25 Units/L (12-78); ALBUMIN 3.1 g/dL (3.4-5.0); ALKALINE PHOSPHATASE 119 Units/L (46-116); ASPARTATE AMINO TRANSFERASE 18 Units/L (15-37); BLOOD UREA NITROGEN 8 mg/dL (7-18); CALCIUM 9.4 mg/dL (8.5-10.1); CARBON DIOXIDE 24.2 mmol/L (21-32); CHLORIDE 105 mmol/L (98-107); COR CA(FOR HYPOALB) 10.1 mg/dL (8.5-10.1); COR NA(FOR HYPERGLY) 142 mmol/L (136-145); GLUCOSE 205 mg/dL (65-99); MAGNESIUM 1.8 mg/dL (2.0-2.9); POTASSIUM 3.7 mmol/L (3.5-5.1); SODIUM 139 mmol/L (136-145); TOTAL PROTEIN 7.7 g/dL (6.4-8.2); eGFR NON BLACK RACES > 60 (>60)
[2024-09-29 06:48] LABS: MICROCYTOSIS 1+; PLATELET MORPHOLOGY COMMENT NORMAL (NORMAL)
--- NOTE | 2024-09-29 09:00 | CT ---
EXAM: ABDCMEN/PELVIS WITH CON HISTORY: ABD PAIN, COLITIS; APPENDECTOMY, RACHELE, HYST COMPARISON: January 13, 2024 TECHNIQUE: Multiple axial images of the abdomen and pelvis were obtained from the lung bases to the pubic symphy sis after the administration of IV contrast. Dose reduction techniques including Automated Exposure Control (AEC) and adjustment of mA and kV were utilized. FINDINGS: The visualized portions of the lung bases are clear. The liver is normal in attenuation. There is no biliary dilatation identified. The gallbladder is surgically absent.. The spleen is average size. No inflammatory changes of the pancreas are identified. The adrenal glands are symmetric in size and overall morphology. No radiopaque renal calculi or evidence of obstruction of the right or left kidney. Kidneys enhance normally. The bilateral ureters are decompressed to the level of the urinary bladder. No significant mesenteric lymphadenopathy or stranding can be observed. No free fluid or free air is seen within the abdomen. The aorta is normal in caliber. No bowel wall thickening or bowel dilatation is present. No aggressively thickened or acutely inflame d bowel segments are identified. No pathologically distended bowel segments are identified. The rig ht colon appears fluid-filled with a few scattered air-fluid levels. This may indicate impending ward rrhea. The left colon is essentially decompressed. The appendix is surgically absent. There is an inflammatory nidus identified within the right lower quadrant centered about the omentum. A circumferential rim of thickening outlines the inflamed fat l obule and there is surrounding inflammatory stranding. This most likely corresponds to a focal oment al infarction that has developed from the prior exam. There is no adjacent free fluid or wall thicke tracy of the adjacent colon. There is diastasis of the abdominus rectus muscles associated with protrusion of omental fat centered the umbilicus. The urinary bladder is grossly unremarkable. The uterus is surgically absent. There is no pathologic adnexal asymmetry. No free fluid of the pel vis is identified. There are no pathologically enlarged iliac chain, inguinal or pelvic sidewall lym ph nodes. No aggressive bony lesions or acute osseous abnormalities. Mild scoliotic curvature of the thoracolu mbar spine is observed. 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 No other localizing source of acute pathology identified. See above for details of additional incide ntal and chronic postsurgical related imaging findings. THIS IS AN ELECTRONICALLY VERIFIED FINAL REPORT 09/29/2024 8:57 AM - Electronically signed by Juve Gutierrez MD
[2024-09-29 10:26] LABS: RETICULOCYTE % 0.97 % (0.8-2.2)
[2024-09-29] MEDS: LR 1,000 ML IV 1,000 ML IV ONE (14:04)
[2024-09-29] MEDS: DIPRIVAN VIAL 20 ML ONE ×2 (14:22→14:23)
[2024-09-29] MEDS: PROTONIX INJ 40 MG VIAL IVP SCH (14:50)
[2024-09-29] MEDS: KLONOPIN TAB 1 MG PO PRN (20:22)
[2024-09-30 06:56] LABS: BASOPHILS # (AUTO) 0.1 X10^3/uL (0.0-0.1); BASOPHILS % (AUTO) 0.6 % (0.2-1.0); HEMATOCRIT 34.2 % (36.0-47.0); HEMOGLOBIN 10.7 g/dL (12.0-16.0); LYMPHOCYTES # (AUTO) 2.5 X10^3/uL (1.3-2.9); LYMPHOCYTES % (AUTO) 10.3 % (21.0-51.0); MEAN CORPUSCULAR HEMOGLOBIN 22.1 pg (27.0-34.0); MEAN CORPUSCULAR HGB CONC 31.4 g/dL (33.0-35.0); MEAN CORPUSCULAR VOLUME 70.4 fL (80.0-100.0); MEAN PLATELET VOLUME 8.7 fL (7.4-11.0); MONOCYTES # (AUTO) 1.4 x10^3/uL (0.3-0.8); MONOCYTES % (AUTO) 5.8 % (0.0-13.0); NEUTROPHILS # (AUTO) 20.5 x10^3/uL (2.2-4.8); NEUTROPHILS % (AUTO) 83.3 % (42.0-75.0); PLATELET COUNT 565 X10^3/uL (150.0-450.0); RED BLOOD COUNT 4.86 X10^6/uL (3.5-5.4); RED CELL DISTRIBUTION WIDTH 20.4 % (11.6-16.5)
[2024-09-30 07:00] LABS: ALANINE AMINOTRANSFERASE 22 Units/L (12-78); ALKALINE PHOSPHATASE 114 Units/L (46-116); ASPARTATE AMINO TRANSFERASE 15 Units/L (15-37); BLOOD UREA NITROGEN 7 mg/dL (7-18); CALCIUM 9.7 mg/dL (8.5-10.1); CHLORIDE 105 mmol/L (98-107); COR CA(FOR HYPOALB) 10.5 mg/dL (8.5-10.1); COR NA(FOR HYPERGLY) 141 mmol/L (136-145); CREATININE 0.97 mg/dL (0.55-1.02); GLUCOSE 125 mg/dL (65-99); MAGNESIUM 1.9 mg/dL (2.0-2.9); POTASSIUM 4.1 mmol/L (3.5-5.1); SODIUM 140 mmol/L (136-145); TOTAL PROTEIN 7.5 g/dL (6.4-8.2); eGFR NON BLACK RACES > 60 (>60)
[2024-09-30 07:09] LABS: WHITE BLOOD COUNT 24.6 X10^3/uL (3.6-10.0)
[2024-09-30 07:27] LABS: ANISOCYTOSIS 1+; BASOPHILS % (MANUAL) 0 % (0-1); HYPOCHROMASIA 1+; MICROCYTOSIS SLIGHT; OVALOCYTES SLIGHT; PLATELET MORPHOLOGY COMMENT NORMAL (NORMAL)
[2024-09-30] MEDS ORDERED: CONSULT PHARMACY - POTASSIUM & MAGNESIUM XX SCH (08:00)
[2024-09-30] MEDS: MAG-OX TAB PO SCH (08:19)
[2024-09-30 11:21] VITALS: BP 139/95; PULSE 53; RESP 20; TEMP 97; O2SAT 97
== END 2024-09-30 09:30 | disposition home or self-care (01) ==
LOC: MED/SURG
PROVIDERS: ADMIT Surgery; ATTEND Family Medicine
DX: D12.8 Benign neoplasm of rectum; K52.89 Other specified noninfective gastroenteritis and colitis; D12.0 Benign neoplasm of cecum; R11.2 Nausea with vomiting, unspecified; K29.60 Other gastritis without bleeding; K42.9 Umbilical hernia without obstruction or gangrene; K21.9 Gastro-esophageal reflux disease without esophagitis; K62.5 Hemorrhage of anus and rectum; E83.42 Hypomagnesemia; M54.59 Other low back pain; D12.5 Benign neoplasm of sigmoid colon; R10.84 Generalized abdominal pain

== ENCOUNTER 2025-01-18 08:37 | Observation (INO) ==
[2025-01-18] MEDS: DILAUDID INJ IVP ONE (09:11)
[2025-01-18] MEDS: ZOFRAN INJ 4 MG VIAL IVP ONE (09:12)
[2025-01-18] MEDS: NS 1,000 ML IV 1,000 ML IV ONE (09:13)
--- NOTE | 2025-01-18 09:29 | DR.URIAD ---
HPI Time Seen Time Seen by Provider: 01/18/25 09:02 PCP Primary Care Physician: Megan HPI Comment HPI Comment: History as below. Complaint Chief Complaint Doctors Comments: Patient is 39yr old female with history of ulcerative colitis and hypertension in ER complaining of Chief Complaint:: Pt c/o "my tail hurts", "I have hemorrhoids or something". She is having frequent episodes of diarrhea for ulcerative colitis. She states she isn't currently taking any medications for UC. She states she takes clonidine at HS for her BP but is elevated "because I am hurting so bad". Self Treatment fo Chief Complaint: Pt denies tylenol/motrin for pain; states l ast time she was in hospital, Dr. Holman prescribed dilaudid for pain, which is the only thing that will help her pain Tux wipes, wet wipes, prep H have not been effective for pain relief COVID-19 Coronavirus risk:travel/contact w/high risk person: No Has patient experienced Coronavirus symptoms: No Reviewed Nurses Notes Reviewed: Yes Source History Provided: Patient Mode of Arrival Mode of Arrival: Ambulatory Timing Onset of Chief Complaint: 01/15/25 Quality Shortness of Breath: none PMH PMH Past Medical History: Yes Past Medical History: Anemia, Anxiety, Depression, GERD, Hypertension and PUD Past Medical History Comment: ulcerative colitis Past Surgical History: Yes Surgical History: Appendectomy, , 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, Hysterectomy and 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 Family History History of Family Medical Conditions: Yes Family Medical History: Diabetes Mellitus, Coronary Artery Disease and Hypertension Social History Do you use any recreational Drugs:: No Lives Where: Home Travel Risk Coronavirus risk:travel/contact w/high risk person: No Has patient experienced Coronavirus symptoms: No Infectious screening In the last 2 months have you had wt loss of >10#?: NO Have you had fever, night sweats or hemotysis?: No Have you traveled outside the country in the last 6 months?: No Isolation: Standard ROS Review of Systems Constitutional: No Symptoms Reported Eyes: No Symptoms Reported ENTM: No Symptoms Reported Respiratoy: No Symptoms Reported Cardiovascular: No Symptoms Reported Gastrointestinal/Abdominal: Abdominal Pain and Diarrhea Genitourinary: No Symptoms Reported Neurological: No Symptoms Reported Musculoskeletal: Back Pain (lower back pain) Integumentary: No Symptoms Reported Hematologic/Lymphatic: No Symptoms Reported Endocrine: No Symptoms Reported Psychiatric: No Symptoms Reported All Other Systems: Reviewed and Negative PE Vital Signs Vitals: Vital Signs Temperature 97.7 F Pulse Rate 111 Pulse Rate 110 Pulse Rate 108 Pulse Rate 109 Pulse Rate 129 Pulse Rate 132 Pulse Rate 128 Pulse Rate 134 Pulse Rate 149 Respiratory Rate 39 Respiratory Rate 26 Respiratory Rate 41 Respiratory Rate 28 Respiratory Rate 20 Respiratory Rate 34 Respiratory Rate 43 Respiratory Rate 20 Respiratory Rate 34 Respiratory Rate 37 Blood Pressure 172/113 Blood Pressure 203/132 Blood Pressure 181/121 Blood Pressure 171/123 Blood Pressure 168/109 O2 Sat by Pulse Oximetry 100 O2 Sat by Pulse Oximetry 100 O2 Sat by Pulse Oximetry 100 O2 Sat by Pulse Oximetry 99 O2 Sat by Pulse Oximetry 100 O2 Sat by Pulse Oximetry 99 O2 Sat by Pulse Oximetry 98 O2 Sat by Pulse Oximetry 98 O2 Sat by Pulse Oximetry 98 General Limitations: No Limitations General Appearance: Alert and In No Apparent Distress Head Head Exam: Normal Inspection Eyes Eye exam: Normal Appearance ENT ENT Exam: Normal Exam, Normal Oropharynx, Normal External Ear Exam and TM's Normal Bilaterally Neck Neck Exam: Normal Inspection Chest Chest Inspection: Normal Inspection and Symmetric Chest Wall Rise; negative Tenderness Respiratory Respiratory Exam: Normal Lung Sounds Bilat; negative Accessory Muscle Use, Chest Wall Tenderness or Respiratory Distress Respiratory Exam: Bilateral: Clear to Auscultation Cardiovascular Cardiovascular Exam: Regular Rate, Normal Rhythm and Normal Heart Sounds; negative Systolic Murmur or Diastolic Murmur Extremeties Extremities Exam: Normal Inspection and Normal Capillary Refill Back Back Exam: Normal Inspection; negative (R) CVA Tenderness or (L) CVA Tenderness Neurologic Neurological Exam: Alert and Oriented X3; negative Motor Sensory Deficit Psychiatric Psychiatric Exam: Normal Affect and Normal Mood Skin Skin Exam: Warm and Intact COURSE Treatment Treatment: See orders done while patient was in ER. Education/Counseling Education/Counseling: Patient ROR Labs Reviewed 01/18/25 10:21 01/18/25 10:21 Laboratory: WBC 12.4 X10^3/uL (3.6-10.0) H 01/18/25 10:21 RBC 5.46 X10^6/uL (3.5-5.4) H 01/18/25 10:21 Hgb 12.2 g/dL (12.0-16.0) 01/18/25 10:21 Hct 38.3 % (36.0-47.0) 01/18/25 10:21 MCV 70.1 fL (80.0-100.0) L 01/18/25 10:21 MCH 22.3 pg (27.0-34.0) L 01/18/25 10:21 MCHC 31.8 g/dL (33.0-35.0) L 01/18/25 10:21 RDW 18.4 % (11.6-16.5) H 01/18/25 10:21 Plt Count 682 X10^3/uL (150.0-450.0) H 01/18/25 10:21 MPV 7.1 fL (7.4-11.0) L 01/18/25 10:21 Neut % (Auto) 70.5 % (42.0-75.0) 01/18/25 10:21 Lymph % (Auto) 18.9 % (21.0-51.0) L 01/18/25 10:21 [place] % (Auto) 8.0 % (0.0-13.0) 01/18/25 10:21 Eos % (Auto) 1.9 % (0.9-2.9) 01/18/25 10:21 Baso % (Auto) 0.7 % (0.2-1.0) 01/18/25 10:21 Neut # (Auto) 8.8 x10^3/uL (2.2-4.8) H 01/18/25 10:21 Lymph # (Auto) 2.3 X10^3/uL (1.3-2.9) 01/18/25 10:21 [place] # (Auto) 1.0 x10^3/uL (0.3-0.8) H 01/18/25 10:21 Eos # (Auto) 0.2 x10^3/uL (0.0-0.2) 01/18/25 10:21 Baso # (Auto) 0.1 X10^3/uL (0.0-0.1) 01/18/25 10:21 Absolute Nucleated RBC 0.0 /100WBC 01/18/25 10:21 Opioid Opioid Risk Tool Age (Sergey box if 16-45): Yes History of Preadolescent Sexual Abuse: No Total: 1 Total Score Risk Category: Low Risk Copyright: Carlos Manuel DONALDSON predicting aberrant behaviors Discharge Plan Discharge Plan Patient Disposition: HOME, SELF-CARE Condition: Stable Prescriptions: No Action sertraline 50 mg tablet 50 mg PO QDAY [id number] [Fioricet] 50-300-40 mg capsule 1 cap PO BID MDD 2 PRN (Reason: pain) 7 Days Qty: 14 0RF clonidine HCl 0.1 mg tablet 0.1 mg PO QHS 30 Days Qty: 30 0RF tizanidine [Zanaflex] 4 mg tablet 4 mg PO QHS PRN (Reason: muscle spasticity) 30 Days Qty: 30 0RF clonazepam 1 mg tablet 1 mg PO BID MDD 2 PRN (Reason: anxiety) 30 Days Qty: 60 1RF albuterol sulfate 90 mcg/actuation HFA aerosol inhaler 2 puff inhalation Q4-6H PRN (Reason: shortness of breath or wheezing) Qty: 8.5 0RF Health Concerns: Post Hospitalization: new medications and changes needed to prevent readmission or further decline. Pt educated and given instructions on all concerns. Plan of Treatment: Continue with present treatment and follow up plan. Pt is to keep follow up appointment as instructed and take medications as ordered. Follow ups/Referrals Follow ups/Referrals: NFD,None [Primary Care Provider] - 3 days Instructions Stand Alone Forms: Find Help Web Site, Post Hospital Follow Up Care
[2025-01-18 10:30] LABS: BASOPHILS # (AUTO) 0.1 X10^3/uL (0.0-0.1); BASOPHILS % (AUTO) 0.7 % (0.2-1.0); EOSINOPHILS # (AUTO) 0.2 x10^3/uL (0.0-0.2); EOSINOPHILS % (AUTO) 1.9 % (0.9-2.9); HEMATOCRIT 38.3 % (36.0-47.0); HEMOGLOBIN 12.2 g/dL (12.0-16.0); LYMPHOCYTES # (AUTO) 2.3 X10^3/uL (1.3-2.9); LYMPHOCYTES % (AUTO) 18.9 % (21.0-51.0); MEAN CORPUSCULAR HEMOGLOBIN 22.3 pg (27.0-34.0); MEAN CORPUSCULAR HGB CONC 31.8 g/dL (33.0-35.0); MEAN CORPUSCULAR VOLUME 70.1 fL (80.0-100.0); MEAN PLATELET VOLUME 7.1 fL (7.4-11.0); NEUTROPHILS # (AUTO) 8.8 x10^3/uL (2.2-4.8); NEUTROPHILS % (AUTO) 70.5 % (42.0-75.0); PLATELET COUNT 682 X10^3/uL (150.0-450.0); RED BLOOD COUNT 5.46 X10^6/uL (3.5-5.4); RED CELL DISTRIBUTION WIDTH 18.4 % (11.6-16.5); WHITE BLOOD COUNT 12.4 X10^3/uL (3.6-10.0)
--- NOTE | 2025-01-18 10:37 | CT ---
EXAM: CT abdomen pelvis without contrast HISTORY: Diarrhea, ulcerative colitis TECHNIQUE: Axial noncontrast images with coronal and sagittal reformats. Dose reduction procedures were used with mA/kv adjusted for body size. This examination is limited due to the lack of intravenous and or al contrast. The examination was performed in this non unenhanced manner at the sole direction of e ordering caregiver. Radiology was afforded NO input into the method of performance of this examina tion. COMPARISON: 09/29/2024 FINDINGS: Lung bases are clear. The liver, spleen, adrenal glands, and pancreas are within normal limits but only to the limitations of an unenhanced examination. Patient is status post cholecystectomy. Kidn eys are unobstructed and without stones. No ureteral calculi are identified. Patient appears to be status post appendectomy. Abdominal aorta is normal in caliber. No enlarged intraperitoneal or retr operitoneal lymphadenopathy is identified. Scattered nonenlarged para-lymph nodes are present likely reactive. There are no findings to suggest acute inflammatory or infectious enteritis. The termina l ileum is patulous possibly the result of prior reflux ileitis which can be seen with ulcerative col itis. Active ileitis does not appear to be present at this time. From the mid transverse colon all the way to the rectum the colon appears a haustral which is a finding that can be seen with chronic u lcerative colitis. That portion of the colon is completely devoid of luminal contents making it diff icult to assess for mural thickening. There is no obvious pericolonic inflammation. Subtle active u lcerative colitis could not be entirely excluded. The rectum demonstrates submucosal fatty infiltrat ion which is finding that can be seen in ulcerative colitis but is not indicative of acute ulcerative colitis. No pelvic masses, pelvic fluid, or pelvic lymphadenopathy is identified. No lytic or alex tic skeletal lesions of significance identified. IMPRESSION: Completely ahaustral colon from the mid transverse colon through the rectum. This finding is consis tent with chronic ulcerative colitis. The lack of luminal contents in this portion of the colon make s it difficult to assess for mural thickening however there is no obvious pericolonic inflammation to suggest active colitis. Subtle active colitis could not be excluded, however. Submucosal fat infiltration noted in the rectum which is a finding that is seen with ulcerative colit is but is not indicative of acute ulcerative colitis Patulous terminal ileum likely due to prior reflux ileitis which is a condition that is seen with chr onic ulcerative colitis. No acute terminal ileitis identified at this time. THIS IS AN ELECTRONICALLY VERIFIED FINAL REPORT 01/18/2025 10:34 AM - Electronically signed by Lester Kerns MD
[2025-01-18 10:52] LABS: ALANINE AMINOTRANSFERASE 26 Units/L (12-78); ALBUMIN 3.6 g/dL (3.4-5.0); ALKALINE PHOSPHATASE 141 Units/L (46-116); AMYLASE 52 Units/L (25-115); ASPARTATE AMINO TRANSFERASE 20 Units/L (15-37); BLOOD UREA NITROGEN 11 mg/dL (7-18); CALCIUM 9.7 mg/dL (8.5-10.1); CARBON DIOXIDE 22.9 mmol/L (21-32); CHLORIDE 100 mmol/L (98-107); COR NA(FOR HYPERGLY) 137 mmol/L (136-145); CREATININE 1.21 mg/dL (0.55-1.02); GLUCOSE 129 mg/dL (65-99); LIPASE 38 Units/L (16-77); SODIUM 136 mmol/L (136-145); TOTAL PROTEIN 8.5 g/dL (6.4-8.2); eGFR NON BLACK RACES 52 (>60)
[2025-01-18 11:01] LABS: PLATELET MORPHOLOGY COMMENT NORMAL (NORMAL)
[2025-01-18] MEDS: PROTONIX INJ 40 MG VIAL IVP ONE (11:01)
[2025-01-18 11:02] LABS: ANISOCYTOSIS SLIGHT; HYPOCHROMASIA 1+; MICROCYTOSIS SLIGHT
[2025-01-18] MEDS ORDERED: FLAGYL IV PREMIX 500 MG BAG 500 MG/100 ML BAG IV ONE (11:25)
[2025-01-18] MEDS ORDERED: ATIVAN INJ 2 MG VIAL ONE (11:26)
[2025-01-18] MEDS: ATIVAN INJ 2 MG VIAL IVP ONE (11:28)
[2025-01-18] MEDS: FLAGYL IV PREMIX 500 MG BAG 500 MG/100 ML BAG IV ONE (11:29)
[2025-01-18] MEDS: CATAPRES-TTS-2 TD SCH (11:29)
[2025-01-18 12:18] VITALS: BMI 30.1
[2025-01-18] MEDS: SOLU-Medrol 125 MG VIAL IVP SCH (13:21)
[2025-01-18] MEDS: FLAGYL IV PREMIX 500 MG BAG 500 MG/100 ML BAG IV SCH (13:22)
[2025-01-18] MEDS: NS 1,000 ML IV 1,000 ML IV SCH (13:22)
[2025-01-18] MEDS: DILAUDID INJ IVP PRN (13:24)
[2025-01-18] MEDS: ZOFRAN INJ 4 MG VIAL IVP PRN (15:43)
[2025-01-18 16:18] LABS: BILIRUBIN,URINE NEGATIVE (NEGATIVE); BLOOD/HEMOGLOBIN,URINE NEGATIVE (NEGATIVE); GLUCOSE, URINE NEGATIVE (NEGATIVE); KETONES,URINE NEGATIVE (NEGATIVE); LEUKOCYTE ESTERASE ,URINE NEGATIVE (NEGATIVE); NITRITES,URINE NEGATIVE (NEGATIVE); PROTEIN,URINE 2+ (NEGATIVE); UROBILINOGEN,URINE NORMAL (NORMAL)
[2025-01-18 16:35] LABS: APPEARANCE,URINE CLOUDY (CLEAR); COLOR,URINE YELLOW (YELLOW)
[2025-01-18] MEDS: APRESOLINE INJ 20 MG VIAL IVP ONE (16:35)
[2025-01-18 16:36] LABS: BACTERIA,URINE NEGATIVE /HPF (NEGATIVE); HYALINE CASTS, URINE RARE /LPF (NEGATIVE); RBC,URINE NONE SEEN /HPF (0-3); SQUAMOUS EPITHELIAL CELL,UR FEW /HPF (NEGATIVE)
--- NOTE | 2025-01-18 16:41 | EKG ---
Test Reason : hypertension Blood Pressure : */* mmHG Vent. Rate : 122 BPM Atrial Rate : 122 BPM P-R Int : 126 ms QRS Dur : 76 ms QT Int : 332 ms P-R-T Axes : 54 25 40 degrees QTc Int : 473 ms Sinus tachycardia Possible Left atrial enlargement Nonspecific ST abnormality Abnormal ECG No previous ECGs available Confirmed by Shawn Hackett MD ([id number]) on 01/19/2025 7:21:23 AM Referred By: Confirmed By: Shawn Hackett MD
[2025-01-18] MEDS: NORVASC TAB 5 MG PO ONE (20:14)
[2025-01-18] MEDS: ATIVAN INJ 2 MG VIAL IVP PRN (22:59)
[2025-01-19] MEDS: CATAPRES TAB 0.1 MG PO PRN (05:25)
[2025-01-19 06:10] LABS: BASOPHILS # (AUTO) 0.1 X10^3/uL (0.0-0.1); BASOPHILS % (AUTO) 0.5 % (0.2-1.0); HEMATOCRIT 34.4 % (36.0-47.0); HEMOGLOBIN 10.9 g/dL (12.0-16.0); LYMPHOCYTES # (AUTO) 1.2 X10^3/uL (1.3-2.9); LYMPHOCYTES % (AUTO) 8.4 % (21.0-51.0); MEAN CORPUSCULAR HEMOGLOBIN 22.5 pg (27.0-34.0); MEAN CORPUSCULAR HGB CONC 31.6 g/dL (33.0-35.0); MEAN CORPUSCULAR VOLUME 71.1 fL (80.0-100.0); MEAN PLATELET VOLUME 7.8 fL (7.4-11.0); MONOCYTES # (AUTO) 0.5 x10^3/uL (0.3-0.8); MONOCYTES % (AUTO) 3.6 % (0.0-13.0); NEUTROPHILS # (AUTO) 12.2 x10^3/uL (2.2-4.8); NEUTROPHILS % (AUTO) 87.5 % (42.0-75.0); PLATELET COUNT 677 X10^3/uL (150.0-450.0); RED BLOOD COUNT 4.84 X10^6/uL (3.5-5.4); RED CELL DISTRIBUTION WIDTH 18.5 % (11.6-16.5)
[2025-01-19 06:19] LABS: ALANINE AMINOTRANSFERASE 26 Units/L (12-78); ALBUMIN 3.3 g/dL (3.4-5.0); ALKALINE PHOSPHATASE 142 Units/L (46-116); ASPARTATE AMINO TRANSFERASE 22 Units/L (15-37); BLOOD UREA NITROGEN 8 mg/dL (7-18); CALCIUM 8.9 mg/dL (8.5-10.1); CARBON DIOXIDE 22.5 mmol/L (21-32); CHLORIDE 101 mmol/L (98-107); COR CA(FOR HYPOALB) 9.5 mg/dL (8.5-10.1); COR NA(FOR HYPERGLY) 139 mmol/L (136-145); CREATININE 1.09 mg/dL (0.55-1.02); GLUCOSE 146 mg/dL (65-99); POTASSIUM 4.3 mmol/L (3.5-5.1); SODIUM 138 mmol/L (136-145); TOTAL PROTEIN 7.8 g/dL (6.4-8.2); eGFR NON BLACK RACES 59 (>60)
[2025-01-19 07:06] LABS: HYPOCHROMASIA SLIGHT; MICROCYTOSIS SLIGHT; PLATELET MORPHOLOGY COMMENT NORMAL (NORMAL)
[2025-01-19 07:07] LABS: ANISOCYTOSIS SLIGHT
[2025-01-19] MEDS: APRESOLINE INJ 20 MG VIAL IVP PRN (08:30)
[2025-01-19] MEDS: KLONOPIN TAB 1 MG PO PRN (08:30)
[2025-01-19] MEDS: PROTONIX INJ 40 MG VIAL IVP SCH (08:40)
[2025-01-19] MEDS ORDERED: TOPROL XL PO ONE (09:05)
[2025-01-19] MEDS: MICARDIS PO SCH (09:27)
[2025-01-19] MEDS: TOPROL XL PO SCH (09:27)
[2025-01-19] MEDS: LOVENOX INJ 40 MG SYR SC SCH (10:00)
--- NOTE | 2025-01-19 12:25 | DR.PROGNOT ---
HOSPITAL PROGRESS NOTE Progress Note for Day of: Progress Note Date: 01/19/25 Chief Complaint Chief Complaint: Patient is complaining of diffuse abdominal pain and burning feeling, nausea but no vomiting. CAT scan showed active colitis. No rectal bleeding today. White count is 14,000, hemoglobin 10, alkaline phosphatase slightly elevated 142 otherwise normal liver function test. Abdomen is soft and flat with diffuse tenderness, bowel sounds hypoactive. Past Medical Family Social History Allergies: Allergies tramadol Allergy (Severe, Verified 01/18/25 09:04) SEIZURES, Reason: Drug allergy; Comments: Patient states it caused her to have seizures years ago Vital Signs Vital Signs: Vital Signs Respiratory Rate 18 Respiratory Rate 19 Respiratory Rate 19 Blood Pressure [Right Arm] 137/77 Blood Pressure [Right Arm] 145/77 Blood Pressure [Right Arm] 160/89 Blood Pressure [Right Arm] 166/99 Physical Exam Oriented: Normal Eyes: Normal Ear: Normal Nose: Normal Throat: Normal Respiratory: Normal Cardiovascular: Normal : Normal GI:Auscultation: Normal GI: Tenderness: RLQ, LLQ and Epigastric Skin: Other (Diffuse lower abdominal tenderness without rebound or rigidity, bowel sounds hypoactive.) Speech Pattern: Clear and Appropriate Laboratory and Diagnostics 01/19/25 05:25 01/19/25 05:25 Labs: Laboratory WBC 14.0 X10^3/uL (3.6-10.0) H 01/19/25 05:25 RBC 4.84 X10^6/uL (3.5-5.4) 01/19/25 05:25 Hgb 10.9 g/dL (12.0-16.0) L 01/19/25 05:25 Hct 34.4 % (36.0-47.0) L 01/19/25 05:25 MCV 71.1 fL (80.0-100.0) L 01/19/25 05:25 MCH 22.5 pg (27.0-34.0) L 01/19/25 05:25 MCHC 31.6 g/dL (33.0-35.0) L 01/19/25 05:25 RDW 18.5 % (11.6-16.5) H 01/19/25 05:25 Plt Count 677 X10^3/uL (150.0-450.0) H 01/19/25 05:25 Plt Count Comment Increased (ADEQUATE) A 01/19/25 05:25 MPV 7.8 fL (7.4-11.0) 01/19/25 05:25 Neut % (Auto) 87.5 % (42.0-75.0) H 01/19/25 05:25 Lymph % (Auto) 8.4 % (21.0-51.0) L 01/19/25 05:25 [place] % (Auto) 3.6 % (0.0-13.0) 01/19/25 05:25 Eos % (Auto) 0.0 % (0.9-2.9) L 01/19/25 05:25 Baso % (Auto) 0.5 % (0.2-1.0) 01/19/25 05:25 Neut # (Auto) 12.2 x10^3/uL (2.2-4.8) H 01/19/25 05:25 Lymph # (Auto) 1.2 X10^3/uL (1.3-2.9) L 01/19/25 05:25 [place] # (Auto) 0.5 x10^3/uL (0.3-0.8) 01/19/25 05:25 Eos # (Auto) 0.0 x10^3/uL (0.0-0.2) 01/19/25 05:25 Baso # (Auto) 0.1 X10^3/uL (0.0-0.1) 01/19/25 05:25 Absolute Nucleated RBC 0.1 /100WBC 01/19/25 05:25 Plt Morphology Comment Normal (NORMAL) 01/19/25 05:25 RBC Morphology Abnormal (NORMAL) A 01/19/25 05:25 Hypochromasia Slight A 01/19/25 05:25 Anisocytosis Slight A 01/19/25 05:25 Microcytosis Slight A 01/19/25 05:25 Sodium 138 mmol/L (136-145) 01/19/25 05:25 Corrected Sodium 139 mmol/L (136-145) 01/19/25 05:25 Potassium 4.3 mmol/L (3.5-5.1) 01/19/25 05:25 Chloride 101 mmol/L (98-107) 01/19/25 05:25 Carbon Dioxide 22.5 mmol/L (21-32) 01/19/25 05:25 BUN 8 mg/dL (7-18) 01/19/25 05:25 Creatinine 1.09 mg/dL (0.55-1.02) H 01/19/25 05:25 Est GFR (MDRD) Af Amer > 60 (>60) 01/19/25 05:25 Est GFR (MDRD) Non-Af 59 (>60) 01/19/25 05:25 Glucose 146 mg/dL (65-99) H 01/19/25 05:25 Calcium 8.9 mg/dL (8.5-10.1) 01/19/25 05:25 Corrected Calcium 9.5 mg/dL (8.5-10.1) 01/19/25 05:25 Total Bilirubin 0.20 mg/dL (0.2-1.0) 01/19/25 05:25 AST 22 Units/L (15-37) 01/19/25 05:25 ALT 26 Units/L (12-78) 01/19/25 05:25 Alkaline Phosphatase 142 Units/L (46-116) H 01/19/25 05:25 Total Protein 7.8 g/dL (6.4-8.2) 01/19/25 05:25 Albumin 3.3 g/dL (3.4-5.0) L 01/19/25 05:25 Globulin 4.5 g/dL (2.5-4.5) 01/19/25 05:25 Albumin/Globulin Ratio 0.7 Ratio (1.1-2.1) L 01/19/25 05:25 Amylase 52 Units/L (25-115) 01/18/25 10:21 Lipase 38 Units/L (16-77) 01/18/25 10:21 Specimen Type Clean catch urine 01/18/25 15:35 Urine Color Yellow (YELLOW) 01/18/25 15:35 Urine Appearance Cloudy (CLEAR) 01/18/25 15:35 Urine pH 6.0 (5.0 - 8.0) 01/18/25 15:35 Ur Specific [place] 1.025 (1.000-1.030) 01/18/25 15:35 Urine Protein 2+ (NEGATIVE) 01/18/25 15:35 Urine Glucose (UA) Negative (NEGATIVE) 01/18/25 15:35 Urine Ketones Negative (NEGATIVE) 01/18/25 15:35 Urine Blood Negative (NEGATIVE) 01/18/25 15:35 Urine Nitrite Negative (NEGATIVE) 01/18/25 15:35 Urine Bilirubin Negative (NEGATIVE) 01/18/25 15:35 Urine Urobilinogen Normal (NORMAL) 01/18/25 15:35 Ur Leukocyte Esterase Negative (NEGATIVE) 01/18/25 15:35 Urine RBC None seen /HPF (0-3) 01/18/25 15:35 Urine WBC 3-5 /HPF (0-5) 01/18/25 15:35 Ur Squamous Epith Cells Few /HPF (NEGATIVE) 01/18/25 15:35 Amorphous Sediment 3+ /HPF (NEGATIVE) 01/18/25 15:35 Urine Bacteria Negative /HPF (NEGATIVE) 01/18/25 15:35 Hyaline Casts Rare /LPF (NEGATIVE) 01/18/25 15:35 Urine Mucus Rare /HPF (NEGATIVE) 01/18/25 15:35 Ur Culture Indicated? No/not indicated 01/18/25 15:35 Stool Occult Blood Positive (NEGATIVE) A 01/18/25 10:58 Assessment and Plan 1: Acute abdominal pain with ulcerative colitis. Patient is on IV steroids and antibiotics. IV fluid. Patient had anxiety issues and hypertension. Medical consultation was obtained. Problem Patient Problems: Patient Problems (Updated 01/18/25 @ 11:47 by Laxmi Bailon) Acute abdominal pain (Acute) R10.9 Ulcerative colitis (Acute) K51.90
[2025-01-19] MEDS: BENADRYL CAP/TAB 25 MG PO PRN (14:57)
[2025-01-19] MEDS: TOPAMAX TAB 100 MG PO SCH (22:11)
[2025-01-20 06:28] LABS: BASOPHILS # (AUTO) 0.2 X10^3/uL (0.0-0.1); BASOPHILS % (AUTO) 1.2 % (0.2-1.0); HEMATOCRIT 32.9 % (36.0-47.0); HEMOGLOBIN 10.3 g/dL (12.0-16.0); LYMPHOCYTES # (AUTO) 1.6 X10^3/uL (1.3-2.9); MEAN CORPUSCULAR HEMOGLOBIN 22.3 pg (27.0-34.0); MEAN CORPUSCULAR HGB CONC 31.2 g/dL (33.0-35.0); MEAN CORPUSCULAR VOLUME 71.7 fL (80.0-100.0); MEAN PLATELET VOLUME 7.9 fL (7.4-11.0); MONOCYTES # (AUTO) 0.7 x10^3/uL (0.3-0.8); MONOCYTES % (AUTO) 4.2 % (0.0-13.0); NEUTROPHILS # (AUTO) 13.3 x10^3/uL (2.2-4.8); NEUTROPHILS % (AUTO) 84.6 % (42.0-75.0); PLATELET COUNT 568 X10^3/uL (150.0-450.0); RED BLOOD COUNT 4.59 X10^6/uL (3.5-5.4); WHITE BLOOD COUNT 15.7 X10^3/uL (3.6-10.0)
[2025-01-20 06:35] LABS: ALANINE AMINOTRANSFERASE 22 Units/L (12-78); ALKALINE PHOSPHATASE 127 Units/L (46-116); ASPARTATE AMINO TRANSFERASE 24 Units/L (15-37); BLOOD UREA NITROGEN 14 mg/dL (7-18); CALCIUM 8.8 mg/dL (8.5-10.1); CHLORIDE 104 mmol/L (98-107); COR CA(FOR HYPOALB) 9.6 mg/dL (8.5-10.1); COR NA(FOR HYPERGLY) 139 mmol/L (136-145); CREATININE 0.79 mg/dL (0.55-1.02); GLUCOSE 141 mg/dL (65-99); POTASSIUM 4.9 mmol/L (3.5-5.1); SODIUM 138 mmol/L (136-145); TOTAL PROTEIN 7.1 g/dL (6.4-8.2); eGFR NON BLACK RACES > 60 (>60)
[2025-01-20 07:12] LABS: ANISOCYTOSIS SLIGHT; HYPOCHROMASIA SLIGHT; MICROCYTOSIS SLIGHT; PLATELET MORPHOLOGY COMMENT NORMAL (NORMAL)
[2025-01-20] MEDS: CHLORASEPTIC SPRAY MT PRN (09:04)
--- NOTE | 2025-01-20 13:09 | DR.PROGNOT ---
HOSPITAL PROGRESS NOTE Progress Note for Day of: Progress Note Date: 01/20/25 Chief Complaint Chief Complaint: Patient is complaining of diffuse abdominal pain and burning feeling, nausea but no vomiting. c/o headache CAT scan showed active colitis. No rectal bleeding today. White count is 14,000, hemoglobin 10, alkaline phosphatase slightly elevated 142 otherwise normal liver function test. Abdomen is soft and flat with diffuse tenderness, bowel sounds hypoactive. Past Medical Family Social History Allergies: Allergies tramadol Allergy (Severe, Verified 01/18/25 09:04) SEIZURES, Reason: Drug allergy; Comments: Patient states it caused her to have seizures years ago Review Of Systems ROS: No change since H&P Vital Signs Vital Signs: Vital Signs Temperature 97.9 F Pulse Rate [Right Radial] 90 Respiratory Rate 20 Respiratory Rate 20 Respiratory Rate 17 Blood Pressure [Right Arm] 116/67 O2 Sat by Pulse Oximetry 97 Physical Exam Oriented: Normal Eyes: Normal Ear: Normal Nose: Normal Throat: Normal Respiratory: Normal Cardiovascular: Normal : Normal GI:Auscultation: Normal GI: Tenderness: RLQ, LLQ and Epigastric Skin: Other (Diffuse lower abdominal tenderness without rebound or rigidity, bowel sounds hypoactive.) Speech Pattern: Clear and Appropriate Laboratory and Diagnostics 01/20/25 05:20 01/20/25 05:20 Labs: Laboratory WBC 15.7 X10^3/uL (3.6-10.0) H 01/20/25 05:20 RBC 4.59 X10^6/uL (3.5-5.4) 01/20/25 05:20 Hgb 10.3 g/dL (12.0-16.0) L 01/20/25 05:20 Hct 32.9 % (36.0-47.0) L 01/20/25 05:20 MCV 71.7 fL (80.0-100.0) L 01/20/25 05:20 MCH 22.3 pg (27.0-34.0) L 01/20/25 05:20 MCHC 31.2 g/dL (33.0-35.0) L 01/20/25 05:20 RDW 19.0 % (11.6-16.5) H 01/20/25 05:20 Plt Count 568 X10^3/uL (150.0-450.0) H 01/20/25 05:20 Plt Count Comment Increased (ADEQUATE) A 01/20/25 05:20 MPV 7.9 fL (7.4-11.0) 01/20/25 05:20 Neut % (Auto) 84.6 % (42.0-75.0) H 01/20/25 05:20 Lymph % (Auto) 10.0 % (21.0-51.0) L 01/20/25 05:20 [place] % (Auto) 4.2 % (0.0-13.0) 01/20/25 05:20 Eos % (Auto) 0.0 % (0.9-2.9) L 01/20/25 05:20 Baso % (Auto) 1.2 % (0.2-1.0) H 01/20/25 05:20 Neut # (Auto) 13.3 x10^3/uL (2.2-4.8) H 01/20/25 05:20 Lymph # (Auto) 1.6 X10^3/uL (1.3-2.9) 01/20/25 05:20 [place] # (Auto) 0.7 x10^3/uL (0.3-0.8) 01/20/25 05:20 Eos # (Auto) 0.0 x10^3/uL (0.0-0.2) 01/20/25 05:20 Baso # (Auto) 0.2 X10^3/uL (0.0-0.1) H 01/20/25 05:20 Absolute Nucleated RBC 0.0 /100WBC 01/20/25 05:20 Plt Morphology Comment Normal (NORMAL) 01/20/25 05:20 RBC Morphology Abnormal (NORMAL) A 01/20/25 05:20 Hypochromasia Slight A 01/20/25 05:20 Anisocytosis Slight A 01/20/25 05:20 Microcytosis Slight A 01/20/25 05:20 Sodium 138 mmol/L (136-145) 01/20/25 05:20 Corrected Sodium 139 mmol/L (136-145) 01/20/25 05:20 Potassium 4.9 mmol/L (3.5-5.1) 01/20/25 05:20 Chloride 104 mmol/L (98-107) 01/20/25 05:20 Carbon Dioxide 24.0 mmol/L (21-32) 01/20/25 05:20 BUN 14 mg/dL (7-18) 01/20/25 05:20 Creatinine 0.79 mg/dL (0.55-1.02) 01/20/25 05:20 Est GFR (MDRD) Af Amer > 60 (>60) 01/20/25 05:20 Est GFR (MDRD) Non-Af > 60 (>60) 01/20/25 05:20 Glucose 141 mg/dL (65-99) H 01/20/25 05:20 Calcium 8.8 mg/dL (8.5-10.1) 01/20/25 05:20 Corrected Calcium 9.6 mg/dL (8.5-10.1) 01/20/25 05:20 Total Bilirubin 0.20 mg/dL (0.2-1.0) 01/20/25 05:20 AST 24 Units/L (15-37) 01/20/25 05:20 ALT 22 Units/L (12-78) 01/20/25 05:20 Alkaline Phosphatase 127 Units/L (46-116) H 01/20/25 05:20 Total Protein 7.1 g/dL (6.4-8.2) 01/20/25 05:20 Albumin 3.0 g/dL (3.4-5.0) L 01/20/25 05:20 Globulin 4.1 g/dL (2.5-4.5) 01/20/25 05:20 Albumin/Globulin Ratio 0.7 Ratio (1.1-2.1) L 01/20/25 05:20 Amylase 52 Units/L (25-115) 01/18/25 10:21 Lipase 38 Units/L (16-77) 01/18/25 10:21 Specimen Type Clean catch urine 01/18/25 15:35 Urine Color Yellow (YELLOW) 01/18/25 15:35 Urine Appearance Cloudy (CLEAR) 01/18/25 15:35 Urine pH 6.0 (5.0 - 8.0) 01/18/25 15:35 Ur Specific [place] 1.025 (1.000-1.030) 01/18/25 15:35 Urine Protein 2+ (NEGATIVE) 01/18/25 15:35 Urine Glucose (UA) Negative (NEGATIVE) 01/18/25 15:35 Urine Ketones Negative (NEGATIVE) 01/18/25 15:35 Urine Blood Negative (NEGATIVE) 01/18/25 15:35 Urine Nitrite Negative (NEGATIVE) 01/18/25 15:35 Urine Bilirubin Negative (NEGATIVE) 01/18/25 15:35 Urine Urobilinogen Normal (NORMAL) 01/18/25 15:35 Ur Leukocyte Esterase Negative (NEGATIVE) 01/18/25 15:35 Urine RBC None seen /HPF (0-3) 01/18/25 15:35 Urine WBC 3-5 /HPF (0-5) 01/18/25 15:35 Ur Squamous Epith Cells Few /HPF (NEGATIVE) 01/18/25 15:35 Amorphous Sediment 3+ /HPF (NEGATIVE) 01/18/25 15:35 Urine Bacteria Negative /HPF (NEGATIVE) 01/18/25 15:35 Hyaline Casts Rare /LPF (NEGATIVE) 01/18/25 15:35 Urine Mucus Rare /HPF (NEGATIVE) 01/18/25 15:35 Ur Culture Indicated? No/not indicated 01/18/25 15:35 Stool Occult Blood Positive (NEGATIVE) A 01/18/25 10:58 Assessment and Plan 1: Acute abdominal pain with ulcerative colitis. Patient is on IV steroids and antibiotics. IV fluid. 2: HTN , to be addressed by Dr lassiter Problem Patient Problems: Patient Problems (Updated 01/18/25 @ 11:47 by Laxmi Bailon) Acute abdominal pain (Acute) R10.9 Ulcerative colitis (Acute) K51.90
[2025-01-20] MEDS: TOPROL XL PO ONE ×3 (13:25→14:44)
[2025-01-20] MEDS: BENADRYL INJ 50 MG VIAL IVP PRN (16:04)
[2025-01-20] MEDS: RESTORIL CAP 15 MG PO PRN (21:07)
[2025-01-20] MEDS: ZANAFLEX PO PRN (21:08)
[2025-01-21 05:44] LABS: BASOPHILS # (AUTO) 0.1 X10^3/uL (0.0-0.1); BASOPHILS % (AUTO) 1.1 % (0.2-1.0); HEMOGLOBIN 10.3 g/dL (12.0-16.0); LYMPHOCYTES # (AUTO) 1.1 X10^3/uL (1.3-2.9); LYMPHOCYTES % (AUTO) 9.7 % (21.0-51.0); MEAN CORPUSCULAR HEMOGLOBIN 22.6 pg (27.0-34.0); MEAN CORPUSCULAR HGB CONC 31.1 g/dL (33.0-35.0); MEAN CORPUSCULAR VOLUME 72.5 fL (80.0-100.0); MEAN PLATELET VOLUME 7.4 fL (7.4-11.0); MONOCYTES # (AUTO) 0.3 x10^3/uL (0.3-0.8); NEUTROPHILS # (AUTO) 9.6 x10^3/uL (2.2-4.8); NEUTROPHILS % (AUTO) 86.2 % (42.0-75.0); PLATELET COUNT 575 X10^3/uL (150.0-450.0); RED BLOOD COUNT 4.56 X10^6/uL (3.5-5.4); RED CELL DISTRIBUTION WIDTH 19.3 % (11.6-16.5); WHITE BLOOD COUNT 11.1 X10^3/uL (3.6-10.0)
[2025-01-21 06:01] LABS: ALANINE AMINOTRANSFERASE 17 Units/L (12-78); ALBUMIN 2.9 g/dL (3.4-5.0); ALKALINE PHOSPHATASE 135 Units/L (46-116); ASPARTATE AMINO TRANSFERASE 6 Units/L (15-37); BLOOD UREA NITROGEN 21 mg/dL (7-18); CALCIUM 8.5 mg/dL (8.5-10.1); CARBON DIOXIDE 22.3 mmol/L (21-32); CHLORIDE 105 mmol/L (98-107); COR CA(FOR HYPOALB) 9.4 mg/dL (8.5-10.1); COR NA(FOR HYPERGLY) 141 mmol/L (136-145); CREATININE 1.07 mg/dL (0.55-1.02); GLUCOSE 176 mg/dL (65-99); POTASSIUM 4.2 mmol/L (3.5-5.1); SODIUM 139 mmol/L (136-145); TOTAL PROTEIN 6.8 g/dL (6.4-8.2); eGFR NON BLACK RACES > 60 (>60)
[2025-01-21 06:13] LABS: ANISOCYTOSIS SLIGHT; HYPOCHROMASIA 1+; MICROCYTOSIS SLIGHT; PLATELET MORPHOLOGY COMMENT NORMAL (NORMAL)
[2025-01-21 08:02] VITALS: BP 133/84; PULSE 82; RESP 19; TEMP 97; O2SAT 100
[2025-01-21] MEDS ORDERED: TOPROL XL PO ONE (08:19)
[2025-01-21] MEDS: TOPROL XL PO SCH (08:53)
[2025-01-21] MEDS: NORCO 5/325 MG TAB PO ONE (12:28)
== END 2025-01-21 12:45 | disposition home or self-care (01) ==
LOC: ER 08:37 → MED/SURG 08:37
PROVIDERS: ADMIT Surgery; ATTEND Surgery
DX: D64.9 Anemia, unspecified; R51.9 Headache, unspecified; R00.0 Tachycardia, unspecified; Z90.49 Acquired absence of other specified parts of digestive tract; F32.89 Other specified depressive episodes; F41.8 Other specified anxiety disorders; M54.50 Low back pain, unspecified; Z87.09 Personal history of other diseases of the respiratory system; K27.9 Peptic ulcer, site unspecified, unspecified as acute or chronic, without hemorrhage or perforation; K21.9 Gastro-esophageal reflux disease without esophagitis; R10.31 Right lower quadrant pain; R10.13 Epigastric pain; I10 Essential (primary) hypertension; R73.9 Hyperglycemia, unspecified; Z87.440 Personal history of urinary (tract) infections; R10.32 Left lower quadrant pain; K51.511 Left sided colitis with rectal bleeding